=== PATIENT | male | born 1965 | race Caucasian/White ===

== ENCOUNTER 2016-09-21 21:19 | Inpatient (IN) | payer MEDICAID ==
[~2016-09-21] VITALS: Ht 172.7 cm; Wt 73.2 kg
[2016-09-21] MEDS ORDERED: SOD CHLORIDE 0.9% 1,000 ML IV STA (23:31)
[2016-09-22 00:33] LABS: ADD SCAN DIFF NO
[2016-09-22 00:40] LABS: ABNORMAL IP MESSAGE 1; EOSINOPHILS # 0.4 10^3/ul (0.0-0.5); HEMATOCRIT 29.3 % (42.0-52.0); HEMOGLOBIN 8.9 g/dl (14.0-18.0); MEAN CORPUSCULAR HEMOGLOBIN 25.6 pg (29.0-33.0); MEAN CORPUSCULAR HGB CONC 30.4 g/dl (32.0-37.0); MEAN CORPUSCULAR VOLUME 84.2 fl (82.0-101.0); MEAN PLATELET VOLUME 11.1 fl (7.4-10.4); RED BLOOD COUNT 3.48 10^6/ul (4.70-6.10); RED CELL DISTRIBUTION WIDTH 21.4 % (11.5-14.5); WHITE BLOOD COUNT 6.8 10^3/ul (4.8-10.8)
--- NOTE | 2016-09-22 01:14 | RADRPT ---
PROCEDURE: CHEST - 1 VIEW CLINICAL INDICATION: 51-year-old male with chest/abdominal pain. TECHNIQUE: A single frontal AP view of the chest was performed portably. The images were reviewed on a PACS workstation. COMPARISON: Chest x-ray February 18, 2014. FINDINGS: The cardiomediastinal silhouette has a normal appearance. There is no evidence for an infiltrate. There is no evidence for congestive heart failure. There is no evidence for pneumothorax. The osseou s structures are intact. IMPRESSION: No evidence for active cardiopulmonary disease. .Chip Hawkins MD, MD Date Time Electronically viewed and signed by .Chip Hawkins MD, on 09/22/2016 01:13 .Priyanka/
[2016-09-22 01:19] LABS: ALBUMIN 2.8 g/dl (3.3-4.9)
[2016-09-22 01:20] LABS: POTASSIUM 3.4 mmol/L (3.5-5.1)
[2016-09-22 01:22] LABS: ALBUMIN/GLOBULIN RATIO 0.73; BILIRUBIN,INDIRECT 0.8 mg/dl (0-1.1); BILIRUBIN,TOTAL 0.8 mg/dl (0.2-1.3); CREATININE 0.59 mg/dl (0.61-1.24); TOTAL PROTEIN 6.6 g/dl (6.1-8.1)
[2016-09-22 01:23] LABS: CALCIUM 7.6 mg/dl (8.4-10.2)
[2016-09-22 01:33] LABS: TROPONIN-I 0.015 ng/ml (0.00-0.12)
[2016-09-22] MEDS ORDERED: PANTOPRAZOLE 40 MG INJ IV STA (01:48)
[2016-09-22] MEDS ORDERED: OCTREOTIDE 50 MCG in SOD CHLORIDE 0.9% 25 ML IVPB STA (01:48)
[2016-09-22] MEDS ORDERED: LACTULOSE 30ML CUP PO ONE (02:00)
[2016-09-22 02:05] LABS: INR 1.25; PROTIME 15.8 Sec (12.2-14.2); PT RATIO 1.2
--- NOTE | 2016-09-22 02:51 | ERA ---
ER Documentation Chief Complaint Date/Time DATE: 09/22/16 TIME: 02:49 Chief Complaint rectal bleeding/feet pain. states been drinking etoh HPI 51-year-old man with history of alcoholism admits to recent drinking and complains of epigastric abdominal pain with recent bright blood per rectum. Patient denies diarrhea, no trauma, no melena, no fevers or chills, no chest pain or shortness of breath. ROS All systems reviewed and are negative except as per history of present illness. Medications Home Meds No Active Prescriptions or Reported Meds Allergies Allergies: Coded Allergies: No Known Allergy (Verified , 09/21/16) PMhx/Soc Alcoholism, alcoholic gastritis, hypertension, hypercholesterolemia History of Surgery: No Anesthesia Reaction: No Hx Neurological Disorder: No Hx Respiratory Disorders: No Hx Cardiac Disorders: Yes (HTN) Hx Psychiatric Problems: Yes (ETOH abuse) Hx Miscellaneous Medical Probl: No Hx Alcohol Use: Yes (02/17/2017) Hx Substance Use: Yes (hx, denies) Hx Tobacco Use: No Smoking Status: Unknown if ever smoked FmHx Family History: No diabetes Physical Exam Vitals Vital Signs Date Time Temp Pulse Resp B/P Pulse Ox O2 Delivery O2 Flow Rate FiO2 09/22/16 01:55 99 18 128/78 100 Room Air 09/22/16 00:56 93 13 122/69 100 Room Air 09/21/16 21:29 97.8 85 20 115/66 98 Physical Exam GENERAL: Well-developed, well-nourished, well-hydrated, in no apparent distress , appears intoxicated. Afebrile HEENT: Moist mucous membranes, pink conjunctiva, no cervical spine tenderness or step-off deformities, no goiter, no jaundice or icterus, extraocular movements intact without pain. No submandibular induration, and no pharyngeal erythema NEURO: Alert and oriented 3, cranial nerves II through XII intact bilaterally, pupils equal round reactive to light, no focal deficits or facial asymmetry, sensation intact distally Strength 5/5 in upper and lower extremities bilaterally CARDIAC: Tachycardic and regular, no murmurs rubs or gallops LUNGS: Clear bilaterally no wheezing crackles or stridor ABDOMEN: Soft nontender, no guarding, no rigidity, no rebound, no psoas sign no obturator sign. Normoactive bowel sounds SKIN: Warm and dry to touch, no abrasions, contusions, or hematomas, no lacerations, no ecchymosis, no target lesions, and without ulcers EXTREMITIES: No clubbing cyanosis or edema, calves are bilaterally symmetrical, no Homans sign, no popliteal cord sign. Distal pulses equal and bilateral PSYCH: Normal affect without agitation or irritability Result Diagram: 09/22/160 09/22/16 0020 Results 24 hrs Laboratory Tests Test 09/22/16 00:03 09/22/16 00:20 INR International Normalized Ratio 1.25 Prothrombin Time 15.8Sec Prothrombin Time Ratio 1.2 Alanine Aminotransferase (ALT/SGPT) 61IU/L Albumin 2.8g/dl Albumin/Globulin Ratio 0.73 Alkaline Phosphatase 160IU/L Ammonia 38umol/l Anion Gap 15 Aspartate Amino Transf (AST/SGOT) 124IU/L Basophils # 0.010^3/ul Basophils % 0.3% Blood Urea Nitrogen 9mg/dl Calcium Level 7.6mg/dl Carbon Dioxide Level 25mmol/L Chloride Level 109mmol/L Creatinine 0.59mg/dl Direct Bilirubin 0.00mg/dl Eosinophils # 0.410^3/ul Eosinophils % 5.6% Ethyl Alcohol Level 256.0mg/dl Globulin 3.80g/dl Glucose Level 93mg/dl Hematocrit 29.3% Hemoglobin 8.9g/dl Indirect Bilirubin 0.8mg/dl Lipase 448U/L Lymphocytes # 1.610^3/ul Lymphocytes % 23.4% Mean Corpuscular Hemoglobin 25.6pg Mean Corpuscular Hemoglobin Concent 30.4g/dl Mean Corpuscular Volume 84.2fl Mean Platelet Volume 11.1fl Monocytes # 0.710^3/ul Monocytes % 10.7% Neutrophils # 4.010^3/ul Neutrophils % 59.9% Nucleated Red Blood Cells # 0.010^3/ul Nucleated Red Blood Cells % 0.0/100WBC Platelet Count 8110^3/UL Potassium Level 3.4mmol/L Red Blood Count 3.4810^6/ul Red Cell Distribution Width 21.4% Sodium Level 146mmol/L Total Bilirubin 0.8mg/dl Total Protein 6.6g/dl Troponin I 0.015ng/ml White Blood Count 6.810^3/ul Current Medications Medications (Trade) Dose Ordered Sig/Rika Route PRN Reason Start Time Stop Time Status Last Admin Dose Admin Sodium Chloride (NS) 1,000 ml @ 1,000 mls/hr Q1H STAT IV 09/21/16 23:31 09/22/16 00:30 DC 09/21/16 23:31 Pantoprazole 40 mg 40 mg ONCE STAT IV 09/22/16 01:48 09/22/16 01:49 09/22/16 02:07 Octreotide Acetate/Sodium Chloride (Sandostatin/NS) 26 ml @ 100 mls/hr Q16M STAT IVPB 09/22/16 01:48 09/22/16 02:03 09/22/16 02:30 Lactulose (Enulose) 20 gm ONCE ONCE PO 09/22/16 02:00 09/22/16 02:01 09/22/16 02:14 Procedures/MDM IV line was established patient 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 I administered 1 L normal saline intravenously. EKG performed, read by me revealed a normal sinus rhythm at 93 bpm, left axis deviation, narrow QRS complex with a prolonged QT of 527 ms, no concerning ST elevations or depressions noted. CBC reveals anemia with a hematocrit of 29 thrombocytopenia 81,000, electrolytes abnormal with hypokalemia 3.4, liver function tests were unremarkable although her lipase was elevated at 448. Troponin was negative. Calcium was low at 7.6. Ammonia elevated at 38 I treated the patient on lactulose 20 g p.o., octreotide 50 g IV, and Protonix 40 mg IV 1. Patient also received calcium gluconate 1 g IV. I ordered type and screen. Patient will be admitted to the [facility] for continued medical management and possible transfusion. Alcohol level was elevated at 256 There are multiple etiologies to consider including upper and lower gastrointestinal bleeding. Hemorrhoidal bleeding is a concern as is a large gastric bleed. Either way alcoholism is most likely the underlying etiology. He will be admitted for continued medical management and possible GI consultation. Departure Diagnosis: Primary Impression: Alcoholic gastritis with bleeding Qualified Code: K29.21 - Acute alcoholic gastritis with hemorrhage Additional Impressions: Anemia Qualified Code: D64.9 - Anemia, unspecified type Hypokalemia Hypocalcemia Hyperammonemia Thrombocytopenia Condition: ABEBE Galvez MD Sep 22, 2016 02:51
[2016-09-22] MEDS ORDERED: CALCIUM GLUCONATE 10% 1 GM in SOD CHLORIDE 0.9% 100 ML IVPB ONE (03:00)
[2016-09-22 03:33] LABS: LYMPHOCYTES # 1.9 10^3/ul (0.8-2.9); MONOCYTE # 0.4 10^3/ul (0.3-0.9); NEUTROPHIL # 4.1 10^3/ul (1.6-7.5)
[2016-09-22 03:35] LABS: PLATELET COUNT 81 10^3/UL (140-415)
[2016-09-22 04:11] VITALS: BP 114/55; PULSE 86; RESP 18
[2016-09-22] MEDS: morphine 2 MG INJ IV PRN ×2 (04:15→08:16)
[2016-09-22] MEDS ORDERED: ONDANSETRON 4 MG INJ IV PRN ×2 (04:30→06:00)
[2016-09-22] MEDS ORDERED: DEXTROSE 5%-0.45% NACL 1,000 ML IV SCH (04:30)
[2016-09-22 04:45] VITALS: Ht 172.7 cm; Wt 73.2 kg
[2016-09-22] MEDS ORDERED: D5W-0.45 NACL + KCL 20 MEQ 1,000 ML IV SCH (05:54)
[2016-09-22 05:56] LABS: BASOPHILS % 0.6 % (0.0-2.0); EOSINOPHILS # 0.3 10^3/ul (0.0-0.5); EOSINOPHILS % 6.6 % (0.0-7.0); HEMATOCRIT 26.9 % (42.0-52.0); HEMOGLOBIN 8.3 g/dl (14.0-18.0); LYMPHOCYTES # 1.2 10^3/ul (0.8-2.9); MEAN CORPUSCULAR HEMOGLOBIN 25.8 pg (29.0-33.0); MEAN CORPUSCULAR HGB CONC 30.9 g/dl (32.0-37.0); MEAN CORPUSCULAR VOLUME 83.5 fl (82.0-101.0); MEAN PLATELET VOLUME 10.7 fl (7.4-10.4); MONOCYTE # 0.6 10^3/ul (0.3-0.9); MONOCYTES % 11.9 % (0.0-11.0); NEUTROPHIL # 2.9 10^3/ul (1.6-7.5); NEUTROPHILS % 56.7 % (39.0-77.0); PLATELET COUNT 72 10^3/UL (140-415); RED BLOOD COUNT 3.22 10^6/ul (4.70-6.10); RED CELL DISTRIBUTION WIDTH 21.4 % (11.5-14.5); WHITE BLOOD COUNT 5.1 10^3/ul (4.8-10.8)
[2016-09-22] MEDS ORDERED: POTASSIUM CHLORIDE 20 MEQ in SOD CHLORIDE 0.9% 100 ML IVPB ONE (06:00)
[2016-09-22] MEDS ORDERED: NACL 0.9% 3 ML SYG IV SCH (06:00)
[2016-09-22] MEDS ORDERED: PANTOPRAZOLE 40 MG INJ IV SCH (06:00)
[2016-09-22 06:05] LABS: POTASSIUM 3.5 mmol/L (3.5-5.1)
[2016-09-22 06:08] LABS: CREATININE 0.49 mg/dl (0.61-1.24)
[2016-09-22 06:09] LABS: CALCIUM 7.5 mg/dl (8.4-10.2); MAGNESIUM 1.6 mg/dl (1.7-2.5)
[2016-09-22] MEDS ORDERED: LORAZEPAM 2 MG INJ IV PRN (06:30)
[2016-09-22 08:05] VITALS: BP 120/56; RESP 22
[2016-09-22] MEDS ORDERED: MULTIVITAMINS 10 ML, THIAMINE 100 MG, FOLIC ACID 1 MG in SOD CHLORIDE 0.9% 1,000 ML IVPB SCH (09:00)
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
== END 2016-09-22 09:45 | disposition left against medical advice (07) | DRG 378 ==
LOC: E/R 21:19 → MS1 09-22 02:30 → E/R 09-22 03:13 → MS1 09-22 03:13 → UNDODISIN 09-22 09:45
PROVIDERS: ADMIT Internal Medicine; ATTEND Internal Medicine
DX: K29.21 Alcoholic gastritis with bleeding (principal); E72.20 Disorder of urea cycle metabolism, unspecified; D69.6 Thrombocytopenia, unspecified; E83.51 Hypocalcemia; K86.0 Alcohol-induced chronic pancreatitis; D64.9 Anemia, unspecified; E87.6 Hypokalemia
CPT/HCPCS: 36415; 71010; 80048; 80053; 80306; 82140; 83690; 83735; 84100; 84484; 85025; 85610; 86850; 86900; 86901; 93005; 96361; 96365; 96375; C9113; J0610; J2270; J3411; J3480; J7030; J7042

== ENCOUNTER 2016-10-01 08:40 | Inpatient (IN) | payer MEDICAID ==
[~2016-10-01] VITALS: Ht 175.3 cm; Wt 77.0 kg
[2016-10-01] MEDS ORDERED: MAGNESIUM SULFATE 2 GM, MULTIVITAMINS 10 ML, THIAMINE 100 MG, FOLIC ACID 1 MG in SOD CH... IV STA (09:02)
[2016-10-01] MEDS ORDERED: SOD CHLORIDE 0.9% 1,000 ML IV STA (09:05)
[2016-10-01 09:58] LABS: BASOPHILS % 0.4 % (0.0-2.0); EOSINOPHILS # 0.2 10^3/ul (0.0-0.5); EOSINOPHILS % 4.2 % (0.0-7.0); HEMATOCRIT 22.6 % (42.0-52.0); HEMOGLOBIN 7.4 g/dl (14.0-18.0); LYMPHOCYTES # 1.4 10^3/ul (0.8-2.9); LYMPHOCYTES % 31.6 % (15.0-51.0); MEAN CORPUSCULAR HEMOGLOBIN 26.3 pg (29.0-33.0); MEAN CORPUSCULAR HGB CONC 32.8 g/dl (32.0-37.0); MEAN CORPUSCULAR VOLUME 80.1 fl (82.0-101.0); MONOCYTE # 0.7 10^3/ul (0.3-0.9); NEUTROPHIL # 2.2 10^3/ul (1.6-7.5); NEUTROPHILS % 48.8 % (39.0-77.0); PLATELET COUNT 64 10^3/UL (140-440); RED BLOOD COUNT 2.82 10^6/ul (4.70-6.10); RED CELL DISTRIBUTION WIDTH 23.6 % (11.5-14.5); UNCORRECTED WBC 4.5 10^3/ul (4.8-10.8); WHITE BLOOD COUNT 4.5 10^3/ul (4.8-10.8)
[2016-10-01 10:01] LABS: CONDITION 1; LH ANALYZER COMMENTS 1; SUSPECT 1
--- NOTE | 2016-10-01 10:01 | RADRPT ---
PROCEDURE: CT Brain without contrast. CLINICAL INDICATION: Medical clearance. TECHNIQUE: A CT of the brain was performed on a [address] scanner utilizing axial sections from the skull base through the vertex without contrast. Coronal and sagittal reformatted i mages were obtained from the axial source images. Images were reviewed on a high-resolution PACS wor kstation. Exam CTDI = 44.11 mGy and the DLP equals 720.23 mGy-cm. One or the following dose reduction techniques were used: -Automated exposure control. -Adjustment of the mA and/or KV according to patient's size. -Use of iterative reconstruction technique. COMPARISON: CT of the brain from 02/20/2013. FINDINGS: There is mild prominence of the lateral ventricles and cerebral sulci, consistent with diffuse cereb ral atrophy. There is no intracranial hemorrhage, midline shift, or mass effect. No abnormal extra-a xial fluid collections are identified. There is hypoattenuation of the periventricular white matter. The duggan-white differentiation is well preserved. The basal cisterns are patent. The posterior idalia a is unremarkable. Vascular calcifications are noted within the intracranial portions of the vertebr al and internal carotid arteries. The visualized portions of the orbits are unremarkable. There is mild left supraorbital soft tissue swelling The paranasal sinuses and mastoid air cells are clear. No calvarial fracture or abnormality are identified. The soft tissues are unremarkable. IMPRESSION: 1. No acute intracranial abnormality. 2. Age related senescent changes with mild diffuse cerebral atrophy. 3. Patchy periventricular hypoattenuation, nonspecific finding, most commonly associated with microv ascular ischemic changes. 4. Intracranial atherosclerosis. 5. Mild left supraorbital soft tissue swelling. RPTAT:AACC Physician Toya Date Time Electronically viewed and signed by Physician Toya on 10/01/2016 10:01 KARL/
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
[2016-10-01 10:20] LABS: INR 1.47; PROTIME 17.9 Sec (12.2-14.2); PT RATIO 1.4
[2016-10-01 10:21] LABS: PARTIAL THROMBOPLASTIN TIME 35.4 Sec (25.0-35.0)
[2016-10-01 10:27] LABS: ALBUMIN 2.5 g/dl (3.3-4.9)
[2016-10-01 10:28] LABS: POTASSIUM 3.5 mmol/L (3.5-5.1)
[2016-10-01 10:30] LABS: BILIRUBIN,INDIRECT 0.8 mg/dl (0-1.1); BILIRUBIN,TOTAL 0.8 mg/dl (0.2-1.3); CREATININE 0.46 mg/dl (0.61-1.24)
[2016-10-01 10:31] LABS: ALBUMIN/GLOBULIN RATIO 0.71; CALCIUM 7.4 mg/dl (8.4-10.2)
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
[2016-10-01] MEDS ORDERED: FAMOTIDINE 20 MG INJ IV STA (11:38)
[2016-10-01] MEDS ORDERED: PANTOPRAZOLE IV 80 MG in SOD CHLORIDE 0.9% 100 ML IVPB STA (11:38)
[2016-10-01] MEDS ORDERED: ONDANSETRON 4 MG INJ IV PRN ×2 (13:00→13:30)
[2016-10-01] MEDS ORDERED: ACETAMINOPHEN 325 MG TAB PO PRN ×2 (13:00→13:30)
[2016-10-01] MEDS ORDERED: MAGNESIUM HYDROXIDE 30ML CUP PO PRN (13:30)
[2016-10-01] MEDS ORDERED: HYDROCODONE/APAP (5/325) TAB PO PRN (13:30)
[2016-10-01] MEDS ORDERED: BISACODYL (EC) 5 MG TAB PO PRN (13:30)
[2016-10-01] MEDS ORDERED: NACL 0.9% 3 ML SYG IV SCH (13:30)
[2016-10-01] MEDS ORDERED: MAGNESIUM SULFATE 2 GM, MULTIVITAMINS 10 ML, THIAMINE 100 MG, FOLIC ACID 1 MG in SOD CH... IV SCH (13:30)
[2016-10-01] MEDS ORDERED: LORAZEPAM 2 MG INJ IV PRN (14:00)
[2016-10-01 14:33] VITALS: TEMP 98.2
[2016-10-01 14:34] LABS: IRON 22 ug/dl (35-150)
[2016-10-01 14:44] LABS: TOTAL IRON BINDING CAPACITY 268 ug/dl (241-421)
[2016-10-01 15:44] VITALS: BP 115/58; PULSE 100; RESP 16
[2016-10-01] MEDS ORDERED: IBUP400T22 PO (16:29)
[2016-10-01] MEDS ORDERED: LORA-444 PO (16:29)
[2016-10-01 16:39] LABS: AMYLASE 129 U/L (11-123)
[2016-10-01] MEDS: SOD FERRIC GLUC COMPLX 125 MG in SOD CHLORIDE 0.9% 100 ML IVPB SCH (17:32)
[2016-10-01] MEDS: PANTOPRAZOLE 40 MG INJ IV SCH (17:32)
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
[2016-10-01] MEDS: morphine 2 MG INJ IV PRN (20:04)
[2016-10-01] MEDS: CHLORDIAZEPOXIDE 25 MG CAP PO SCH (20:05)
[2016-10-01 20:24] VITALS: BP 125/60; RESP 19
[2016-10-02 02:01] LABS: BARBITURATES Negative (NEGATIVE); BENZODIAZEPINES Positive (NEGATIVE)
[2016-10-02 02:02] LABS: COCAINE Negative (NEGATIVE); OPIATES Positive (NEGATIVE)
[2016-10-02 02:07] LABS: CANNABINOIDS Negative (NEGATIVE)
[2016-10-02] MEDS: morphine 2 MG INJ IV PRN ×3 (02:33→18:54)
[2016-10-02] MEDS: PANTOPRAZOLE 40 MG INJ IV SCH ×2 (05:21→17:22)
[2016-10-02 05:43] LABS: ALBUMIN 2.2 g/dl (3.3-4.9)
[2016-10-02 05:44] LABS: POTASSIUM 3.4 mmol/L (3.5-5.1)
[2016-10-02 05:46] LABS: ALBUMIN/GLOBULIN RATIO 0.66; BILIRUBIN,INDIRECT 1.2 mg/dl (0-1.1); BILIRUBIN,TOTAL 1.2 mg/dl (0.2-1.3); CALCIUM 7.3 mg/dl (8.4-10.2); CREATININE 0.49 mg/dl (0.61-1.24); TOTAL PROTEIN 5.5 g/dl (6.1-8.1)
[2016-10-02 05:47] LABS: INR 1.49; PROTIME 18.1 Sec (12.2-14.2); PT RATIO 1.4
[2016-10-02] MEDS ORDERED: PANTOPRAZOLE 40 MG INJ IV SCH (06:00)
[2016-10-02 06:01] LABS: BASOPHILS % 0.5 % (0.0-2.0); EOSINOPHILS # 0.2 10^3/ul (0.0-0.5); EOSINOPHILS % 5.9 % (0.0-7.0); HEMOGLOBIN 7.7 g/dl (14.0-18.0); LYMPHOCYTES % 25.3 % (15.0-51.0); MEAN CORPUSCULAR HGB CONC 33.4 g/dl (32.0-37.0); MEAN CORPUSCULAR VOLUME 80.8 fl (82.0-101.0); MEAN PLATELET VOLUME 9.3 fl (7.4-10.4); MONOCYTE # 0.8 10^3/ul (0.3-0.9); MONOCYTES % 18.4 % (0.0-11.0); NEUTROPHIL # 2.1 10^3/ul (1.6-7.5); NEUTROPHILS % 49.9 % (39.0-77.0); PLATELET COUNT 54 10^3/UL (140-440); RED BLOOD COUNT 2.85 10^6/ul (4.70-6.10); RED CELL DISTRIBUTION WIDTH 22.8 % (11.5-14.5); UNCORRECTED WBC 4.1 10^3/ul (4.8-10.8); WHITE BLOOD COUNT 4.1 10^3/ul (4.8-10.8)
[2016-10-02 06:11] LABS: CONDITION 1; LH ANALYZER COMMENTS 1
[2016-10-02 07:52] VITALS: BP 123/68; RESP 18
[2016-10-02] MEDS: CHLORDIAZEPOXIDE 25 MG CAP PO SCH ×3 (08:31→20:57)
[2016-10-02 09:48] LABS: CHOL/HDL RATIO 3.1 RATIO; MAGNESIUM 1.6 mg/dl (1.7-2.5); PHOSPHORUS 3.5 mg/dl (2.5-4.9)
[2016-10-02] MEDS: MULTIVITAMINS 10 ML, THIAMINE 100 MG, FOLIC ACID 1 MG in SOD CHLORIDE 0.9% 1,000 ML IVPB SCH (10:00)
[2016-10-02] MEDS: CHOLECALCIFEROL 1,000 UNIT TAB PO SCH (10:00)
[2016-10-02 10:45] LABS: THYROID STIMULATING HORMONE 5.11 MIU/L (0.465-4.680)
[2016-10-02] MEDS ORDERED: POTASSIUM CHLORIDE (SR) 10 MEQ TAB PO ONE (12:00)
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
[2016-10-02] MEDS ORDERED: MAGNESIUM SULFATE 2 GM/50 ML 50 ML IVPB ONE (16:30)
[2016-10-02] MEDS ORDERED: BISACODYL (EC) 5 MG TAB PO ONE (19:00)
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
[2016-10-02] MEDS ORDERED: MAGNESIUM CITRATE 300 ML BTL PO ONE (20:00)
[2016-10-02] MEDS: SOD FERRIC GLUC COMPLX 125 MG in SOD CHLORIDE 0.9% 100 ML IVPB SCH (20:01)
[2016-10-02 20:22] VITALS: BP 138/72; RESP 19
[2016-10-02] MEDS ORDERED: POLYETHYLENE GLYCOL 3350 119 GM POWDER PO ONE (21:00)
[2016-10-02] MEDS: LACTULOSE 30ML CUP PO SCH (21:06)
[2016-10-03] MEDS: LACTULOSE 30ML CUP PO SCH (05:03)
[2016-10-03] MEDS: PANTOPRAZOLE 40 MG INJ IV SCH (05:04)
[2016-10-03 05:29] LABS: INR 1.57; PROTIME 18.9 Sec (12.2-14.2); PT RATIO 1.5
[2016-10-03 05:32] LABS: EOSINOPHILS # 0.2 10^3/ul (0.0-0.5); EOSINOPHILS % 4.9 % (0.0-7.0); HEMATOCRIT 27.6 % (42.0-52.0); HEMOGLOBIN 9.2 g/dl (14.0-18.0); LYMPHOCYTES # 1.2 10^3/ul (0.8-2.9); LYMPHOCYTES % 27.1 % (15.0-51.0); MEAN CORPUSCULAR HEMOGLOBIN 27.5 pg (29.0-33.0); MEAN CORPUSCULAR HGB CONC 33.2 g/dl (32.0-37.0); MEAN CORPUSCULAR VOLUME 82.9 fl (82.0-101.0); MEAN PLATELET VOLUME 9.6 fl (7.4-10.4); MONOCYTE # 0.8 10^3/ul (0.3-0.9); MONOCYTES % 16.4 % (0.0-11.0); NEUTROPHIL # 2.4 10^3/ul (1.6-7.5); NEUTROPHILS % 51.6 % (39.0-77.0); PLATELET COUNT 57 10^3/UL (140-440); RED BLOOD COUNT 3.33 10^6/ul (4.70-6.10); RED CELL DISTRIBUTION WIDTH 22.1 % (11.5-14.5); UNCORRECTED WBC 4.6 10^3/ul (4.8-10.8); WHITE BLOOD COUNT 4.6 10^3/ul (4.8-10.8)
[2016-10-03 05:40] LABS: CONDITION 1; LH ANALYZER COMMENTS 1
[2016-10-03] MEDS: morphine 2 MG INJ IV PRN ×2 (05:40→11:19)
[2016-10-03 05:45] LABS: ALBUMIN 2.4 g/dl (3.3-4.9)
[2016-10-03 05:46] LABS: POTASSIUM 3.9 mmol/L (3.5-5.1)
[2016-10-03 05:48] LABS: CREATININE 0.48 mg/dl (0.61-1.24)
[2016-10-03 05:49] LABS: ALBUMIN/GLOBULIN RATIO 0.7; TOTAL PROTEIN 5.8 g/dl (6.1-8.1)
[2016-10-03 05:50] LABS: MAGNESIUM 1.8 mg/dl (1.7-2.5); PHOSPHORUS 3.8 mg/dl (2.5-4.9)
[2016-10-03] MEDS ORDERED: BISACODYL (EC) 5 MG TAB PO ONE (06:00)
[2016-10-03] MEDS ORDERED: POLYETHYLENE GLYCOL 3350 119 GM POWDER PO ONE (06:00)
[2016-10-03 08:00] VITALS: BP 119/67; RESP 20
[2016-10-03] MEDS: CHOLECALCIFEROL 1,000 UNIT TAB PO SCH (09:00)
[2016-10-03] MEDS: MULTIVITAMINS 10 ML, THIAMINE 100 MG, FOLIC ACID 1 MG in SOD CHLORIDE 0.9% 1,000 ML IVPB SCH (09:27)
[2016-10-03] MEDS: CHLORDIAZEPOXIDE 25 MG CAP PO SCH (09:29)
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
== END 2016-10-03 13:30 | disposition left against medical advice (07) | DRG 378 ==
LOC: E/R 08:40 → PP2 12:38
PROVIDERS: ADMIT Family Medicine; ATTEND Family Medicine
PROC: 30233N1 Transfusion of Nonautologous Red Blood Cells into Peripheral Vein, Percutaneous Approach (ICD-10-PCS; principal; 2016-10-01)
DX: K92.1 Melena (principal); D61.818 Other pancytopenia; S09.8XXA Other specified injuries of head, initial encounter; E72.20 Disorder of urea cycle metabolism, unspecified; E55.9 Vitamin D deficiency, unspecified; D50.9 Iron deficiency anemia, unspecified; F10.129 Alcohol abuse with intoxication, unspecified; R74.0 Nonspecific elevation of levels of transaminase and lactic acid dehydrogenase [LDH]; Y90.8 Blood alcohol level of 240 mg/100 ml or more; Y00.XXXA Assault by blunt object, initial encounter
CPT/HCPCS: 36430; 70450; 70486; 80053; 80061; 80306; 80307; 82140; 82150; 82270; 82652; 82728; 83036; 83540; 83690; 83735; 84100; 84439; 84443; 85025; 85610; 85730; 86850; 86900; 86901; 86920; 87081; 96374; 96375; 97162; C9113; J2060; J2270; J2916; J3411; J3475; J7030; P9016

== ENCOUNTER 2016-10-05 10:25 | Inpatient (IN) | payer MEDICAID ==
[~2016-10-05] VITALS: Ht 175.3 cm; Wt 90.0 kg
[~2016-10-05 10:25] MED LIST: IBUP400T22 PO; LORA-444 PO
[2016-10-05] MEDS ORDERED: MAGNESIUM SULFATE 2 GM, MULTIVITAMINS 10 ML, THIAMINE 100 MG, FOLIC ACID 1 MG in SOD CH... IV STA (10:38)
--- NOTE | 2016-10-05 11:10 | RADRPT ---
PROCEDURE: XR Chest. CLINICAL INDICATION: shortness of breath TECHNIQUE: Single portable view of the chest was obtained COMPARISON: 09/21/16 FINDINGS: There is mild cardiomegaly. There is mild pulmonary vascular congestion. There are mild bilateral perihilar and lower lobe infi ltrates. There is no evidence of pleural effusion.. There is no pneumothorax. The bones and soft tissues are unremarkable. RPTAT: AA IMPRESSION: Mild cardiomegaly with mild pulmonary vascular congestion. .Sumeet Douglas MD, MD Date Time Electronically viewed and signed by .Sumeet Douglas MD, MD on 10/05/2016 11:09 .S/
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
[2016-10-05 11:55] LABS: ADD SCAN DIFF NO
[2016-10-05 12:09] LABS: ABNORMAL IP MESSAGE 1; ALBUMIN 2.6 g/dl (3.3-4.9); BASOPHILS % 0.3 % (0.0-2.0); EOSINOPHILS # 0.2 10^3/ul (0.0-0.5); EOSINOPHILS % 3.2 % (0.0-7.0); HEMATOCRIT 28.2 % (42.0-52.0); HEMOGLOBIN 8.8 g/dl (14.0-18.0); LYMPHOCYTES # 0.9 10^3/ul (0.8-2.9); LYMPHOCYTES % 14.5 % (15.0-51.0); MEAN CORPUSCULAR HGB CONC 31.2 g/dl (32.0-37.0); MEAN CORPUSCULAR VOLUME 86.5 fl (82.0-101.0); MEAN PLATELET VOLUME 10.9 fl (7.4-10.4); MONOCYTE # 0.6 10^3/ul (0.3-0.9); MONOCYTES % 10.6 % (0.0-11.0); NEUTROPHIL # 4.3 10^3/ul (1.6-7.5); NEUTROPHILS % 70.9 % (39.0-77.0); RED BLOOD COUNT 3.26 10^6/ul (4.70-6.10); RED CELL DISTRIBUTION WIDTH 22.5 % (11.5-14.5)
[2016-10-05 12:10] LABS: POTASSIUM 3.7 mmol/L (3.5-5.1)
[2016-10-05 12:12] LABS: BILIRUBIN,INDIRECT 1.7 mg/dl (0-1.1); BILIRUBIN,TOTAL 1.7 mg/dl (0.2-1.3); CREATININE 0.5 mg/dl (0.61-1.24)
[2016-10-05 12:13] LABS: ALBUMIN/GLOBULIN RATIO 0.7; CALCIUM 7.7 mg/dl (8.4-10.2); TOTAL PROTEIN 6.3 g/dl (6.1-8.1)
[2016-10-05 12:18] LABS: PLATELET COUNT 69 10^3/UL (140-415)
[2016-10-05] MEDS ORDERED: IPRATROPIUM (NEB) 0.5 MG/2.5 ML AMP NEB STA (13:27)
[2016-10-05] MEDS ORDERED: ALBUTEROL 0.5% (NEB) 2.5 MG/0.5 ML AMP NEB STA (13:27)
[2016-10-05] MEDS ORDERED: LORAZEPAM 2 MG INJ IV ONE (13:30)
[2016-10-05] MEDS ORDERED: CHLORDIAZEPOXIDE 25 MG CAP PO ONE (13:30)
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
[2016-10-05] MEDS ORDERED: ONDANSETRON 4 MG INJ IV PRN ×2 (15:30→16:30)
[2016-10-05] MEDS ORDERED: ACETAMINOPHEN 325 MG TAB PO PRN (15:30)
[2016-10-05 15:31] LABS: TROPONIN-I 0.013 ng/ml (0.00-0.12)
[2016-10-05] MEDS ORDERED: SOD CHLORIDE 0.9% 1,000 ML IV STA (15:42)
[2016-10-05] MEDS ORDERED: FUROSEMIDE 40 MG INJ IV ONE (16:00)
[2016-10-05] MEDS ORDERED: NACL 0.9% 3 ML SYG IV SCH (16:30)
[2016-10-05 17:00] VITALS: TEMP 98.3
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
[2016-10-05] MEDS: PANTOPRAZOLE 40 MG INJ IV SCH (18:03)
[2016-10-05 18:11] VITALS: BP 144/62; PULSE 105; RESP 19
[2016-10-05 19:20] VITALS: BP 135/67; RESP 20
[2016-10-05] MEDS: CHLORDIAZEPOXIDE 25 MG CAP PO SCH (19:37)
[2016-10-05] MEDS: morphine 2 MG INJ IV PRN (19:44)
[2016-10-05] MEDS: LORAZEPAM 2 MG INJ IV PRN (19:44)
[2016-10-05 19:57] VITALS: Ht 175.3 cm; Wt 90.0 kg
[2016-10-05 20:23] VITALS: PULSE 103
[2016-10-05 21:00] LABS: CK-MB 7.94 ng/ml (0.0-2.4)
[2016-10-05] MEDS ORDERED: FAMOTIDINE 20 MG TAB PO SCH (21:00)
[2016-10-05 21:01] LABS: TROPONIN-I 0.014 ng/ml (0.00-0.12)
[2016-10-06] VITALS (13 sets, daily range): BP systolic 122–141; BP diastolic 63–67; PULSE 83–105; RESP 16–21
[2016-10-06 00:14] LABS: TROPONIN-I 0.021 ng/ml (0.00-0.12)
[2016-10-06 00:27] LABS: CK-MB 5.64 ng/ml (0.0-2.4)
[2016-10-06] MEDS: LORAZEPAM 2 MG INJ IV PRN ×3 (04:30→21:47)
[2016-10-06] MEDS: PANTOPRAZOLE 40 MG INJ IV SCH ×2 (04:30→17:59)
[2016-10-06] MEDS: morphine 2 MG INJ IV PRN ×2 (04:53→18:48)
[2016-10-06] MEDS: FAMOTIDINE 20 MG TAB PO SCH (08:13)
[2016-10-06] MEDS: MULTIVITAMINS 10 ML, THIAMINE 100 MG, FOLIC ACID 1 MG in SOD CHLORIDE 0.9% 1,000 ML IVPB SCH (08:13)
[2016-10-06] MEDS: CHLORDIAZEPOXIDE 25 MG CAP PO SCH ×3 (08:13→19:35)
[2016-10-06 10:24] LABS: ADD SCAN DIFF NO
[2016-10-06 10:32] LABS: ABNORMAL IP MESSAGE 1; BASOPHILS % 0.6 % (0.0-2.0); EOSINOPHILS # 0.4 10^3/ul (0.0-0.5); EOSINOPHILS % 7.7 % (0.0-7.0); HEMATOCRIT 27.2 % (42.0-52.0); HEMOGLOBIN 8.5 g/dl (14.0-18.0); LYMPHOCYTES # 0.7 10^3/ul (0.8-2.9); LYMPHOCYTES % 14.7 % (15.0-51.0); MEAN CORPUSCULAR HEMOGLOBIN 27.5 pg (29.0-33.0); MEAN CORPUSCULAR HGB CONC 31.3 g/dl (32.0-37.0); MEAN PLATELET VOLUME 10.4 fl (7.4-10.4); MONOCYTE # 0.6 10^3/ul (0.3-0.9); MONOCYTES % 12.8 % (0.0-11.0); NEUTROPHIL # 3.1 10^3/ul (1.6-7.5); NEUTROPHILS % 63.8 % (39.0-77.0); PLATELET COUNT 59 10^3/UL (140-415); RED BLOOD COUNT 3.09 10^6/ul (4.70-6.10); RED CELL DISTRIBUTION WIDTH 23.7 % (11.5-14.5); WHITE BLOOD COUNT 4.9 10^3/ul (4.8-10.8)
[2016-10-06 10:38] LABS: POTASSIUM 3.5 mmol/L (3.5-5.1)
[2016-10-06 10:40] LABS: ALBUMIN/GLOBULIN RATIO 0.64; BILIRUBIN,INDIRECT 1.7 mg/dl (0-1.1); BILIRUBIN,TOTAL 1.7 mg/dl (0.2-1.3); CREATININE 0.48 mg/dl (0.61-1.24); TOTAL PROTEIN 5.1 g/dl (6.1-8.1)
[2016-10-06 10:41] LABS: CALCIUM 7.3 mg/dl (8.4-10.2); MAGNESIUM 1.5 mg/dl (1.7-2.5)
[2016-10-06 10:43] LABS: CREATINE KINASE 691 IU/L (23-200)
[2016-10-06 10:51] LABS: CK-MB 3.73 ng/ml (0.0-2.4)
[2016-10-06 10:52] LABS: TROPONIN-I < 0.010 ng/ml (0.00-0.12)
--- NOTE | 2016-10-06 13:12 | PDOCDIS ---
Discharge Instructions CONDITION Patient Condition: Fair HOME CARE INSTRUCTIONS: Diet Instructions: Regular ACTIVITY: Activity Restrictions: Slowly Increase Activity Rest between Activity Avoid heavy lifting FOLLOW UP/APPOINTMENTS Appointments Follow up with primary care physician as outpatient OTHER ORDERS: Other Orders: Alcohol cessation CARL PIERRE MD Oct 06, 2016 13:12
[2016-10-06] MEDS ORDERED: MULTI PO (13:16)
[2016-10-06] MEDS ORDERED: CHLO25CA9 PO (13:16)
[2016-10-06] MEDS ORDERED: FOL8 PO (13:16)
[2016-10-06] MEDS ORDERED: LORA1TAB PO (13:16)
[2016-10-06] MEDS ORDERED: THIA100T10 PO (13:16)
[2016-10-06] MEDS ORDERED: OMEP20CA16 PO (13:16)
[2016-10-06] MEDS ORDERED: FER325 PO (13:35)
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
[2016-10-07] VITALS (9 sets, daily range): BP systolic 124–147; BP diastolic 64–72; PULSE 80–88; RESP 16–20
[2016-10-07] MEDS: morphine 2 MG INJ IV PRN (04:04)
[2016-10-07] MEDS: LORAZEPAM 2 MG INJ IV PRN ×2 (04:04→14:34)
[2016-10-07] MEDS: PANTOPRAZOLE 40 MG INJ IV SCH ×2 (04:11→18:15)
[2016-10-07] MEDS: CHLORDIAZEPOXIDE 25 MG CAP PO SCH ×3 (08:13→20:58)
[2016-10-07] MEDS: FAMOTIDINE 20 MG TAB PO SCH (08:13)
[2016-10-07] MEDS: MULTIVITAMINS 10 ML, THIAMINE 100 MG, FOLIC ACID 1 MG in SOD CHLORIDE 0.9% 1,000 ML IVPB SCH (08:13)
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
[2016-10-07] MEDS ORDERED: LACTULOSE 30ML CUP PO ONE (12:00)
[2016-10-07] MEDS: FERROUS SULFATE (EC) 325 MG TAB PO SCH (12:53)
[2016-10-07] MEDS: LACTULOSE 30ML CUP PO SCH (20:58)
[2016-10-08] MEDS: PANTOPRAZOLE 40 MG INJ IV SCH (05:53)
[2016-10-08 05:59] LABS: ADD SCAN DIFF NO
[2016-10-08 06:14] LABS: ABNORMAL IP MESSAGE 1; BASOPHILS % 0.7 % (0.0-2.0); EOSINOPHILS # 0.3 10^3/ul (0.0-0.5); EOSINOPHILS % 7.4 % (0.0-7.0); HEMOGLOBIN 9.4 g/dl (14.0-18.0); LYMPHOCYTES % 21.6 % (15.0-51.0); MEAN CORPUSCULAR HEMOGLOBIN 26.6 pg (29.0-33.0); MEAN CORPUSCULAR HGB CONC 30.3 g/dl (32.0-37.0); MEAN CORPUSCULAR VOLUME 87.6 fl (82.0-101.0); MONOCYTE # 0.6 10^3/ul (0.3-0.9); MONOCYTES % 13.7 % (0.0-11.0); NEUTROPHIL # 2.6 10^3/ul (1.6-7.5); NEUTROPHILS % 56.4 % (39.0-77.0); PLATELET COUNT 62 10^3/UL (140-415); RED BLOOD COUNT 3.54 10^6/ul (4.70-6.10); RED CELL DISTRIBUTION WIDTH 24.5 % (11.5-14.5); WHITE BLOOD COUNT 4.6 10^3/ul (4.8-10.8)
[2016-10-08 06:20] LABS: ALBUMIN 2.3 g/dl (3.3-4.9)
[2016-10-08 06:21] LABS: POTASSIUM 3.6 mmol/L (3.5-5.1)
[2016-10-08 06:22] LABS: CREATININE 0.49 mg/dl (0.61-1.24)
[2016-10-08 06:23] LABS: ALBUMIN/GLOBULIN RATIO 0.65; BILIRUBIN,INDIRECT 1.7 mg/dl (0-1.1); BILIRUBIN,TOTAL 1.7 mg/dl (0.2-1.3); CALCIUM 8.1 mg/dl (8.4-10.2); TOTAL PROTEIN 5.8 g/dl (6.1-8.1)
[2016-10-08 06:24] LABS: MAGNESIUM 1.4 mg/dl (1.7-2.5)
[2016-10-08 08:19] VITALS: BP 114/63; RESP 18
[2016-10-08] MEDS: CHLORDIAZEPOXIDE 25 MG CAP PO SCH ×3 (09:07→20:43)
[2016-10-08] MEDS: FAMOTIDINE 20 MG TAB PO SCH (09:07)
[2016-10-08] MEDS: FERROUS SULFATE (EC) 325 MG TAB PO SCH (09:07)
[2016-10-08] MEDS: LACTULOSE 30ML CUP PO SCH ×3 (09:08→20:43)
[2016-10-08] MEDS: ASCORBIC ACID 500 MG TAB PO SCH (09:10)
[2016-10-08] MEDS: MULTIVITAMINS 10 ML, THIAMINE 100 MG, FOLIC ACID 1 MG in SOD CHLORIDE 0.9% 1,000 ML IVPB SCH (09:12)
[2016-10-08] MEDS: ACETAMINOPHEN 325 MG TAB PO PRN (11:20)
[2016-10-08] MEDS ORDERED: LACT20SO2 PO (12:57)
--- NOTE | 2016-10-08 13:05 | DS ---
Date/Time of Note Date/Time of Note DATE: 10/08/16 TIME: 13:02 Discharge Summary Admission/Discharge Info Admit Date/Time Oct 07, 2016 at 16:24 Discharge Date/Time 10/08/16 Final Diagnosis DISCHARGE DIAGNOSES: 1. Rhabdomyolysis. Resolved, status post IV fluid. 2. Recent hospitalization with gastrointestinal bleed. Resolved. Hemoglobin and hematocrit have been stable. 3. History and current alcohol dependency. Patient was placed on a banana bag , Librium, and Ativan. He will be discharged home on multivitamins, thiamine, folic acid, Librium and Ativan 4. Transaminitis secondary to alcohol dependency. 5. Thrombocytopenia. No evidence of bleeding. Secondary to alcohol dependency. 6. Noncompliance with medical management. 7. Anemia. Stable. 8. Hepatic encephalopathy. Continue lactulose Hospital Course Is addendum for discharge summary which was done by me on 10/06/2016. Patient was not able to find placement and was also found to be mildly altered with elevated ammonia level. He was started on lactulose and this time his mentation is at his baseline. He is awake alert able to follow commands he was able to shower without any difficulty ambulating with no discomfort or gait disturbance. At this time patient will be discharged to long term versus his family house I have spoken to him regarding the importance of abstinence from alcohol intake Follow-up with primary care physician as outpatient Alcohol cessation Home Meds Active Scripts Lactulose* (Lactulose*) 20 Gm/30 Ml Solution, 20 GM PO TID for 30 Days, ML Prov:CARL PIERRE MD 10/08/16 Ferrous Sulfate* (Ferrous Sulfate*) 325 Mg Tabec, 325 MG PO BID, #60 TAB Prov:CARL PIERRE MD 10/06/16 Thiamine* (Thiamine*) 100 Mg Tablet, 100 MG PO DAILY, #30 TAB Prov:CARL PIERRE MD 10/06/16 Multivitamins* (Theragran*) 1 Tab Tab, 1 TAB PO DAILY, #30 TAB Prov:CARL PIERRE MD 10/06/16 Folic Acid* (Folic Acid*) 0.8 Mg Tablet, 0.8 MG PO DAILY, #30 TAB Prov:CARL PIERRE MD 10/06/16 Lorazepam* (Lorazepam*) 1 Mg Tablet, 1 MG PO BID Y for AGITATION/ANXIETY, #1 TAB Prov:CARL PIERRE MD 10/06/16 Omeprazole* (Omeprazole*) 20 Mg Capsule.dr, 20 MG PO BID, #60 CAP Prov:CARL PIERRE MD 10/06/16 Chlordiazepoxide* (Chlordiazepoxide*) 25 Mg Capsule, 25 MG PO TID, #1 CAP Prov:CARL PIERRE MD 10/06/16 Discontinued Reported Medications Ibuprofen* (Ibuprofen*) 400 Mg Tablet, 400 MG PO Q6H Y for PAIN, TAB 10/01/16 Lorazepam* (Ativan*) 2 Mg Tablet, 2 MG PO HS Y for INSOMNIA, #30 TAB 10/01/16 Pending Labs Laboratory Tests Test 10/07/16 19:30 10/08/16 05:44 10/08/16 12:05 Ammonia 62umol/l (9-30) 78umol/l (9-30) 44umol/l (9-30) Alanine Aminotransferase (ALT/SGPT) 55IU/L (13-69) Albumin 2.3g/dl (3.3-4.9) Albumin/Globulin Ratio 0.65 Alkaline Phosphatase 113IU/L (42-121) Anion Gap 12 (8-16) Aspartate Amino Transf (AST/SGOT) 61IU/L (15-46) Basophils # 0.010^3/ul (0.0-0.1) Basophils % 0.7% (0.0-2.0) Blood Urea Nitrogen 6mg/dl (7-20) Calcium Level 8.1mg/dl (8.4-10.2) Carbon Dioxide Level 25mmol/L (21-31) Chloride Level 110mmol/L (97-110) Creatine Kinase 161IU/L (23-200) Creatinine 0.49mg/dl (0.61-1.24) Direct Bilirubin 0.00mg/dl (0.00-0.20) Eosinophils # 0.310^3/ul (0.0-0.5) Eosinophils % 7.4% (0.0-7.0) Globulin 3.50g/dl (1.3-3.2) Glucose Level 91mg/dl (70-220) Hematocrit 31.0% (42.0-52.0) Hemoglobin 9.4g/dl (14.0-18.0) Indirect Bilirubin 1.7mg/dl (0-1.1) Lymphocytes # 1.010^3/ul (0.8-2.9) Lymphocytes % 21.6% (15.0-51.0) Magnesium Level 1.4mg/dl (1.7-2.5) Mean Corpuscular Hemoglobin 26.6pg (29.0-33.0) Mean Corpuscular Hemoglobin Concent 30.3g/dl (32.0-37.0) Mean Corpuscular Volume 87.6fl (82.0-101.0) Mean Platelet Volume fl (7.4-10.4) Monocytes # 0.610^3/ul (0.3-0.9) Monocytes % 13.7% (0.0-11.0) Neutrophils # 2.610^3/ul (1.6-7.5) Neutrophils % 56.4% (39.0-77.0) Nucleated Red Blood Cells # 0.010^3/ul (0.0-0.0) Nucleated Red Blood Cells % 0.0/100WBC (0.0-0.0) Platelet Count 6210^3/UL (140-415) Potassium Level 3.6mmol/L (3.5-5.1) Red Blood Count 3.5410^6/ul (4.70-6.10) Red Cell Distribution Width 24.5% (11.5-14.5) Sodium Level 143mmol/L (135-144) Total Bilirubin 1.7mg/dl (0.2-1.3) Total Protein 5.8g/dl (6.1-8.1) White Blood Count 4.610^3/ul (4.8-10.8) CARL PIERRE MD Oct 08, 2016 13:05
[2016-10-08] MEDS: HYDROCODONE/APAP (5/325) TAB PO PRN ×2 (16:13→20:45)
[2016-10-08] MEDS: PANTOPRAZOLE (EC) 40 MG TAB PO SCH (17:28)
[2016-10-08] MEDS ORDERED: PANTOPRAZOLE 40 MG INJ IV SCH (18:00)
[2016-10-08 20:00] VITALS: BP 113/57; PULSE 77; RESP 20
[2016-10-08] MEDS: LORAZEPAM 2 MG INJ IV PRN (22:06)
[2016-10-09] MEDS: HYDROCODONE/APAP (5/325) TAB PO PRN ×2 (05:26→17:22)
[2016-10-09] MEDS: PANTOPRAZOLE (EC) 40 MG TAB PO SCH ×2 (05:26→17:12)
[2016-10-09 06:22] LABS: ADD SCAN DIFF NO
[2016-10-09 06:50] LABS: POTASSIUM 3.5 mmol/L (3.5-5.1)
[2016-10-09 06:52] LABS: ABNORMAL IP MESSAGE 1; BASOPHILS % 0.8 % (0.0-2.0); EOSINOPHILS # 0.4 10^3/ul (0.0-0.5); EOSINOPHILS % 8.1 % (0.0-7.0); HEMATOCRIT 30.8 % (42.0-52.0); HEMOGLOBIN 9.4 g/dl (14.0-18.0); LYMPHOCYTES # 1.1 10^3/ul (0.8-2.9); LYMPHOCYTES % 21.7 % (15.0-51.0); MEAN CORPUSCULAR HEMOGLOBIN 27.4 pg (29.0-33.0); MEAN CORPUSCULAR HGB CONC 30.5 g/dl (32.0-37.0); MEAN CORPUSCULAR VOLUME 89.8 fl (82.0-101.0); MEAN PLATELET VOLUME 10.3 fl (7.4-10.4); MONOCYTE # 0.6 10^3/ul (0.3-0.9); MONOCYTES % 11.6 % (0.0-11.0); NEUTROPHIL # 2.8 10^3/ul (1.6-7.5); NEUTROPHILS % 57.6 % (39.0-77.0); PLATELET COUNT 67 10^3/UL (140-415); RED BLOOD COUNT 3.43 10^6/ul (4.70-6.10); RED CELL DISTRIBUTION WIDTH 24.9 % (11.5-14.5); WHITE BLOOD COUNT 4.8 10^3/ul (4.8-10.8)
[2016-10-09 06:53] LABS: CREATININE 0.51 mg/dl (0.61-1.24)
[2016-10-09 06:54] LABS: CALCIUM 8.1 mg/dl (8.4-10.2)
[2016-10-09 07:42] VITALS: BP 137/63; RESP 16
[2016-10-09] MEDS: MULTIVITAMINS 10 ML, THIAMINE 100 MG, FOLIC ACID 1 MG in SOD CHLORIDE 0.9% 1,000 ML IVPB SCH (08:02)
[2016-10-09] MEDS: ASCORBIC ACID 500 MG TAB PO SCH (08:02)
[2016-10-09] MEDS: LACTULOSE 30ML CUP PO SCH ×4 (08:02→20:47)
[2016-10-09] MEDS: CHLORDIAZEPOXIDE 25 MG CAP PO SCH ×3 (08:02→20:47)
[2016-10-09] MEDS: FERROUS SULFATE (EC) 325 MG TAB PO SCH (08:02)
[2016-10-09] MEDS: FAMOTIDINE 20 MG TAB PO SCH (08:02)
--- NOTE | 2016-10-09 11:44 | PN ---
Date/Time of Note Date/Time of Note DATE: 10/09/16 TIME: 11:42 Assessment/Plan VTE Prophylaxis VTE Prophylaxis Intervention: SCD's Lines/Catheters IV [facility]from [facility] Peripheral IV Urinary Cath still in place: No Assessment/Plan Chief Complaint/Hosp Course ASSESSMENT AND PLAN: 1. Rhabdomyolysis. Improving status post IV fluids 2. History and current alcohol dependency. Patient has been started on banana bag, Librium and Ativan. 3. Transaminitis secondary to #3. 4. Hepatic encephalopathy / altered mental status,, follow-up ammonia level, continue lactulose 5. Thrombocytopenia secondary to history of alcoholism. No evidence of acute bleeding at this time. 6. Anemia. Continue iron supplementation, follow up hemoglobin and hematocrit 7. For deep venous thrombosis prophylaxis, on sequential compression devices. 8. Gastrointestinal prophylaxis, on Protonix We will continue to monitor patient closely. Further recommendations, management and treatment as per clinical course. Problems: Subjective 24 Hr Interval Summary Free Text/Dictation Patient is more altered than yesterday Able to follow simple commands only Tolerating oral intake Exam/Review of Systems Vital Signs Vitals Vital Signs Date Time Temp Pulse Resp B/P Pulse Ox O2 Delivery O2 Flow Rate FiO2 10/09/16 07:42 98.2 80 16 137/63 95 10/08/16 20:00 Room Air 10/06/16 08:00 2.0 10/05/16 15:47 21 Intake and Output 10/08/16 10/08/16 10/09/16 15:00 23:00 07:00 Intake Total 2611.2 ml 400 ml Output Total 850 ml 1500 ml Balance 1761.2 ml -1100 ml Exam General: The patient is well-developed, Not in acute distress. HEENT: Atraumatic, normocephalic. The pupils are equal and round . Neck: Supple with full range of motion. Chest: Normal expansion of the thorax during inspiration Lungs: Clear to auscultation bilaterally Heart: Normal S1-S2, Regular rhythm and rate. Abdomen: Soft , nontender, nondistended , bowel sounds are present. Extremities: Normal to inspection, no edema no cyanosis Neurologic: Altered , the patient is awake, Results Result Diagram: 10/09/16 0520 10/09/16 0520 Results 24 hrs Laboratory Tests Test 10/08/16 12:05 10/09/16 05:20 Ammonia 44 H 93 #H Anion Gap 11 Basophils # 0.0 Basophils % 0.8 Blood Urea Nitrogen 5 L Calcium Level 8.1 L Carbon Dioxide Level 27 Chloride Level 110 Creatinine 0.51 L Eosinophils # 0.4 Eosinophils % 8.1 H Glucose Level 95 Hematocrit 30.8 L Hemoglobin 9.4 L Lymphocytes # 1.1 Lymphocytes % 21.7 Mean Corpuscular Hemoglobin 27.4 L Mean Corpuscular Hemoglobin Concent 30.5 L Mean Corpuscular Volume 89.8 Mean Platelet Volume 10.3 Monocytes # 0.6 Monocytes % 11.6 H Neutrophils # 2.8 Neutrophils % 57.6 Nucleated Red Blood Cells # 0.0 Nucleated Red Blood Cells % 0.0 Platelet Count 67 L Potassium Level 3.5 Red Blood Count 3.43 L Red Cell Distribution Width 24.9 H Sodium Level 144 White Blood Count 4.8 Medications Medications Current Medications Multivitamins/ Thiamine HCl/ Folic Acid/Sodium Chloride (Mvi-12 Adult/ Vitamin B1/Folic Acid/NS) 1,011.2 ml @ 100 mls/ hr DAILY@09 IVPB Last administered on 10/09/16 08:02; Admin Dose 100 MLS/HR; Start 10/06/16 at 09:00 Ondansetron HCl (Zofran Inj) 4 mg Q6H PRN IV NAUSEA AND/OR VOMITING; Start at 16:30 Morphine Sulfate (morphine) 1 mg Q4H PRN IV SEVERE PAIN LEVEL 7-10 Last administered on 10/07/16 04:04; Admin Dose 1 MG; Start 10/05/16 at 16:30 Chlordiazepoxide (Librium) 25 mg TID PO Last administered on 10/09/16 08:02; Admin Dose 25 MG; Start 10/05/16 at 21:00 Lorazepam (Ativan) 1 mg Q6H PRN IV AGITATION/ANXIETY Last administered on 22:06; Admin Dose 1 MG; Start 10/05/16 at 16:30 Famotidine (Pepcid) 20 mg DAILY PO Last administered on 10/09/16 08:02; Admin Dose 20 MG; Start 10/06/16 at 09:00 Lactulose (Enulose) 20 gm TID PO Last administered on 10/09/16 08:02; Admin Dose 20 GM; Start 10/07/16 at 21:00 Ferrous Sulfate (Ferrous Sulfate (Ec)) 325 mg DAILY PO Last administered on 08:02; Admin Dose 325 MG; Start 10/07/16 at 12:00 Ascorbic Acid (Vitamin C) 500 mg DAILY PO Last administered on 10/09/16 08:02 ; Admin Dose 500 MG; Start 10/08/16 at 09:00 Acetaminophen (Tylenol Tab) 650 mg Q6H PRN PO PAIN AND OR ELEVATED TEMP Last administered on 10/08/16 11:20; Admin Dose 650 MG; Start 10/08/16 at 11:14 Pantoprazole (Protonix Tab) 40 mg BID@06,18 PO Last administered on 10/09/16 05:26; Admin Dose 40 MG; Start 10/08/16 at 18:00 Acetaminophen/ Hydrocodone Bitart ([place] (5/325)) 1 tab Q4H PRN PO pain Last administered on 10/09/16 05:26; Admin Dose 1 TAB; Start 10/08/16 at 16:00 CARL PIERRE MD Oct 09, 2016 11:44
[2016-10-09] MEDS: LORAZEPAM 2 MG INJ IV PRN ×2 (17:23→23:45)
[2016-10-09 20:00] VITALS: BP 138/77; RESP 19
[2016-10-10] MEDS: LORAZEPAM 2 MG INJ IV PRN ×3 (05:32→23:27)
[2016-10-10] MEDS: PANTOPRAZOLE (EC) 40 MG TAB PO SCH ×2 (05:32→17:37)
[2016-10-10 05:42] LABS: ADD SCAN DIFF NO
[2016-10-10 06:01] LABS: ABNORMAL IP MESSAGE 1; BASOPHILS % 0.6 % (0.0-2.0); EOSINOPHILS # 0.4 10^3/ul (0.0-0.5); EOSINOPHILS % 8.4 % (0.0-7.0); HEMATOCRIT 32.2 % (42.0-52.0); HEMOGLOBIN 9.9 g/dl (14.0-18.0); LYMPHOCYTES # 1.1 10^3/ul (0.8-2.9); LYMPHOCYTES % 23.3 % (15.0-51.0); MEAN CORPUSCULAR HEMOGLOBIN 27.1 pg (29.0-33.0); MEAN CORPUSCULAR HGB CONC 30.7 g/dl (32.0-37.0); MEAN CORPUSCULAR VOLUME 88.2 fl (82.0-101.0); MEAN PLATELET VOLUME 9.8 fl (7.4-10.4); MONOCYTE # 0.6 10^3/ul (0.3-0.9); MONOCYTES % 13.1 % (0.0-11.0); NEUTROPHIL # 2.7 10^3/ul (1.6-7.5); NEUTROPHILS % 54.4 % (39.0-77.0); PLATELET COUNT 64 10^3/UL (140-415); RED BLOOD COUNT 3.65 10^6/ul (4.70-6.10); RED CELL DISTRIBUTION WIDTH 24.6 % (11.5-14.5); WHITE BLOOD COUNT 4.9 10^3/ul (4.8-10.8)
[2016-10-10 06:05] LABS: ALBUMIN 2.5 g/dl (3.3-4.9)
[2016-10-10 06:06] LABS: POTASSIUM 3.6 mmol/L (3.5-5.1)
[2016-10-10 06:08] LABS: ALBUMIN/GLOBULIN RATIO 0.56; BILIRUBIN,INDIRECT 1.6 mg/dl (0-1.1); BILIRUBIN,TOTAL 1.6 mg/dl (0.2-1.3); CREATININE 0.49 mg/dl (0.61-1.24); TOTAL PROTEIN 6.9 g/dl (6.1-8.1)
[2016-10-10 06:09] LABS: CALCIUM 8.3 mg/dl (8.4-10.2); MAGNESIUM 1.4 mg/dl (1.7-2.5)
[2016-10-10 07:00] VITALS: BP 131/67; RESP 20
[2016-10-10] MEDS: FERROUS SULFATE (EC) 325 MG TAB PO SCH (08:30)
[2016-10-10] MEDS: MULTIVITAMINS 10 ML, THIAMINE 100 MG, FOLIC ACID 1 MG in SOD CHLORIDE 0.9% 1,000 ML IVPB SCH (08:30)
[2016-10-10] MEDS: FAMOTIDINE 20 MG TAB PO SCH (08:30)
[2016-10-10] MEDS: LACTULOSE 30ML CUP PO SCH ×4 (08:30→20:44)
[2016-10-10] MEDS: CHLORDIAZEPOXIDE 25 MG CAP PO SCH ×3 (08:30→20:44)
[2016-10-10] MEDS: ASCORBIC ACID 500 MG TAB PO SCH (08:30)
--- NOTE | 2016-10-10 10:14 | PN ---
Date/Time of Note Date/Time of Note DATE: 10/10/16 TIME: 10:11 Assessment/Plan VTE Prophylaxis VTE Prophylaxis Intervention: SCD's Lines/Catheters IV Catheter Type (from Nrs): Peripheral IV Urinary Cath still in place: No Assessment/Plan Assessment/Plan 1. Rhabdomyolysis. Improving status post IV fluids- 2. History and current alcohol dependency. Patient has been started on banana bag, Librium and Ativan.- pt is still confused with hepatic encephalopathy 3. Transaminitis secondary to #3. 4. Hepatic encephalopathy / altered mental status, ammonia improvin but pt is still confused on lactulose, BP stable, on librium also 5. Thrombocytopenia secondary to history of alcoholism. No evidence of acute bleeding at this time. 6. Anemia. Continue iron supplementation, follow up hemoglobin and hematocrit 7. For deep venous thrombosis prophylaxis, on sequential compression devices. 8. Gastrointestinal prophylaxis, on Protonix Subjective 24 Hr Interval Summary Free Text/Dictation pt is still confused, ammonia improving, Bp stable Exam/Review of Systems Vital Signs Vitals Vital Signs Date Time Temp Pulse Resp B/P Pulse Ox O2 Delivery O2 Flow Rate FiO2 10/10/16 07:00 97.8 85 20 131/67 97 10/08/16 20:00 Room Air 10/06/16 08:00 2.0 Intake and Output 10/09/16 10/09/16 10/10/16 15:00 23:00 07:00 Intake Total 2371.2 ml Output Total 1650 ml Balance 721.2 ml Exam General: pt is confused HEENT: Atraumatic, normocephalic. The pupils are equal and round . Neck: Supple with full range of motion. Chest: Normal expansion of the thorax during inspiration Lungs: Clear to auscultation bilaterally Heart: Normal S1-S2, Regular rhythm and rate. Abdomen: Soft , nontender, nondistended , bowel sounds are present. Extremities: Normal to inspection, no edema no cyanosis Neurologic: Altered , the patient is awake, Results Result Diagram: 10/10/16 0500 10/10/16 0500 Results 24 hrs Laboratory Tests Test 10/10/16 05:00 Alanine Aminotransferase (ALT/SGPT) 45 Albumin 2.5 L Albumin/Globulin Ratio 0.56 Alkaline Phosphatase 151 H Ammonia 46 #H Anion Gap 13 Aspartate Amino Transf (AST/SGOT) 52 H Basophils # 0.0 Basophils % 0.6 Blood Urea Nitrogen 5 L Calcium Level 8.3 L Carbon Dioxide Level 25 Chloride Level 109 Creatinine 0.49 L Direct Bilirubin 0.00 Eosinophils # 0.4 Eosinophils % 8.4 H Globulin 4.40 H Glucose Level 91 Hematocrit 32.2 L Hemoglobin 9.9 L Indirect Bilirubin 1.6 H Lymphocytes # 1.1 Lymphocytes % 23.3 Magnesium Level 1.4 L Mean Corpuscular Hemoglobin 27.1 L Mean Corpuscular Hemoglobin Concent 30.7 L Mean Corpuscular Volume 88.2 Mean Platelet Volume 9.8 Monocytes # 0.6 Monocytes % 13.1 H Neutrophils # 2.7 Neutrophils % 54.4 Nucleated Red Blood Cells # 0.0 Nucleated Red Blood Cells % 0.0 Platelet Count 64 L Potassium Level 3.6 Red Blood Count 3.65 L Red Cell Distribution Width 24.6 H Sodium Level 143 Total Bilirubin 1.6 H Total Protein 6.9 # White Blood Count 4.9 Medications Medications Current Medications Multivitamins/ Thiamine HCl/ Folic Acid/Sodium Chloride (Mvi-12 Adult/ Vitamin B1/Folic Acid/NS) 1,011.2 ml @ 100 mls/ hr DAILY@09 IVPB Last administered on 10/10/16 08:30; Admin Dose 100 MLS/HR; Start 10/06/16 at 09:00 Ondansetron HCl (Zofran Inj) 4 mg Q6H PRN IV NAUSEA AND/OR VOMITING; Start at 16:30 Morphine Sulfate (morphine) 1 mg Q4H PRN IV SEVERE PAIN LEVEL 7-10 Last administered on 10/07/16 04:04; Admin Dose 1 MG; Start 10/05/16 at 16:30 Chlordiazepoxide (Librium) 25 mg TID PO Last administered on 10/10/16 08:30; Admin Dose 25 MG; Start 10/05/16 at 21:00 Lorazepam (Ativan) 1 mg Q6H PRN IV AGITATION/ANXIETY Last administered on 05:32; Admin Dose 1 MG; Start 10/05/16 at 16:30 Famotidine (Pepcid) 20 mg DAILY PO Last administered on 10/10/16 08:30; Admin Dose 20 MG; Start 10/06/16 at 09:00 Ferrous Sulfate (Ferrous Sulfate (Ec)) 325 mg DAILY PO Last administered on 10/10 08:30; Admin Dose 325 MG; Start 10/07/16 at 12:00 Ascorbic Acid (Vitamin C) 500 mg DAILY PO Last administered on 10/10/16 08:30; Admin Dose 500 MG; Start 10/08/16 at 09:00 Acetaminophen (Tylenol Tab) 650 mg Q6H PRN PO PAIN AND OR ELEVATED TEMP Last administered on 10/08/16 11:20; Admin Dose 650 MG; Start 10/08/16 at 11:14 Pantoprazole (Protonix Tab) 40 mg BID@06,18 PO Last administered on 10/10/16 05 :32; Admin Dose 40 MG; Start 10/08/16 at 18:00 Acetaminophen/ Hydrocodone Bitart ([place] (5/325)) 1 tab Q4H PRN PO pain Last administered on 10/09/16 17:22; Admin Dose 1 TAB; Start 10/08/16 at 16:00 Lactulose 20 gm 20 gm QID PO Last administered on 10/10/16 08:30; Admin Dose 20 GM; Start 10/09/16 at 12:00 Magnesium Sulfate (Magnesium Sulfate 2 Gm/50 ml) 50 ml @ 25 mls/hr ONCE ONCE IVPB ; Start 10/10/16 at 11:00; Stop 10/10/16 at 12:59 JEOVANNY WATT MD Oct 10, 2016 10:13
[2016-10-10] MEDS ORDERED: MAGNESIUM SULFATE 2 GM/50 ML 50 ML IVPB ONE (11:00)
[2016-10-10 20:00] VITALS: BP 130/60; PULSE 88; RESP 17
[2016-10-10] MEDS: morphine 2 MG INJ IV PRN (21:17)
[2016-10-10] MEDS ORDERED: NITROGLYCERIN (SL) 0.4 MG TAB SL PRN (21:30)
[2016-10-11] MEDS ORDERED: ZOLPIDEM 5 MG TAB PO PRN (01:42)
[2016-10-11 06:12] LABS: ADD SCAN DIFF NO
[2016-10-11] MEDS: PANTOPRAZOLE (EC) 40 MG TAB PO SCH ×2 (06:13→17:28)
[2016-10-11 06:32] LABS: INR 1.5; PARTIAL THROMBOPLASTIN TIME 34.4 Sec (25.0-35.0); PROTIME 18.2 Sec (12.2-14.2); PT RATIO 1.4
[2016-10-11 06:36] LABS: ABNORMAL IP MESSAGE 1; ALBUMIN 2.4 g/dl (3.3-4.9); BASOPHILS % 0.6 % (0.0-2.0); EOSINOPHILS # 0.4 10^3/ul (0.0-0.5); EOSINOPHILS % 7.4 % (0.0-7.0); HEMATOCRIT 32.3 % (42.0-52.0); HEMOGLOBIN 10.1 g/dl (14.0-18.0); LYMPHOCYTES # 1.1 10^3/ul (0.8-2.9); LYMPHOCYTES % 23.5 % (15.0-51.0); MEAN CORPUSCULAR HEMOGLOBIN 27.9 pg (29.0-33.0); MEAN CORPUSCULAR HGB CONC 31.3 g/dl (32.0-37.0); MEAN CORPUSCULAR VOLUME 89.2 fl (82.0-101.0); MONOCYTE # 0.6 10^3/ul (0.3-0.9); MONOCYTES % 11.6 % (0.0-11.0); NEUTROPHIL # 2.7 10^3/ul (1.6-7.5); NEUTROPHILS % 56.7 % (39.0-77.0); RED BLOOD COUNT 3.62 10^6/ul (4.70-6.10); RED CELL DISTRIBUTION WIDTH 24.5 % (11.5-14.5); WHITE BLOOD COUNT 4.8 10^3/ul (4.8-10.8)
[2016-10-11 06:37] LABS: POTASSIUM 3.6 mmol/L (3.5-5.1)
[2016-10-11 06:39] LABS: ALBUMIN/GLOBULIN RATIO 0.57; BILIRUBIN,INDIRECT 1.4 mg/dl (0-1.1); BILIRUBIN,TOTAL 1.4 mg/dl (0.2-1.3); CALCIUM 8.1 mg/dl (8.4-10.2); CREATININE 0.5 mg/dl (0.61-1.24); TOTAL PROTEIN 6.6 g/dl (6.1-8.1)
[2016-10-11 06:54] LABS: PLATELET COUNT 60 10^3/UL (140-415)
[2016-10-11 07:30] VITALS: BP 133/60; RESP 22
[2016-10-11] MEDS: ASCORBIC ACID 500 MG TAB PO SCH (08:17)
[2016-10-11] MEDS: MULTIVITAMINS 10 ML, THIAMINE 100 MG, FOLIC ACID 1 MG in SOD CHLORIDE 0.9% 1,000 ML IVPB SCH (08:17)
[2016-10-11] MEDS: FAMOTIDINE 20 MG TAB PO SCH (08:17)
[2016-10-11] MEDS: FERROUS SULFATE (EC) 325 MG TAB PO SCH (08:17)
[2016-10-11] MEDS: CHLORDIAZEPOXIDE 25 MG CAP PO SCH ×3 (08:17→21:38)
[2016-10-11] MEDS: LACTULOSE 30ML CUP PO SCH ×4 (08:17→21:38)
[2016-10-11] MEDS: LORAZEPAM 2 MG INJ IV PRN (09:02)
--- NOTE | 2016-10-11 12:29 | PN ---
Date/Time of Note Date/Time of Note DATE: 10/11/16 TIME: 12:25 Assessment/Plan VTE Prophylaxis VTE Prophylaxis Intervention: SCD's Lines/Catheters IV Catheter Type (from [facility]): Peripheral IV Urinary Cath still in place: No Assessment/Plan Chief Complaint/Hosp Course ASSESSMENT AND PLAN: 1. Rhabdomyolysis. Resolved status post IV fluids 2. History and current alcohol dependency. Continue banana bag, Librium and Ativan. 3. Transaminitis secondary to #3. 4. Hepatic encephalopathy / altered mental status,, follow-up ammonia level, continue lactulose 5. Thrombocytopenia secondary to history of alcoholism. No evidence of acute bleeding at this time. 6. Anemia. Continue iron supplementation, follow up hemoglobin and hematocrit 7. For deep venous thrombosis prophylaxis, on sequential compression devices. 8. Gastrointestinal prophylaxis, on Protonix We will continue to monitor patient closely. Further recommendations, management and treatment as per clinical course. Problems: Subjective 24 Hr Interval Summary Free Text/Dictation Patient still continues to act confused and altered He does not have any difficulty with oral intake although he still has gait instability when he ambulates to the bathroom No nausea vomiting or diarrhea Exam/Review of Systems Vital Signs Vitals Vital Signs Date Time Temp Pulse Resp B/P Pulse Ox O2 Delivery O2 Flow Rate FiO2 10/11/16 07:30 98.0 79 22 133/60 97 10/10/16 20:00 Room Air Intake and Output 10/10/16 10/10/16 10/11/16 15:00 23:00 07:00 Intake Total 2341.2 ml 800 ml Output Total 900 ml Balance 2341.2 ml -100 ml Exam General: The patient is well-developed, Not in acute distress. HEENT: Atraumatic, normocephalic. The pupils are equal and round . Neck: Supple with full range of motion. Chest: Normal expansion of the thorax during inspiration Lungs: Clear to auscultation bilaterally Heart: Normal S1-S2, Regular rhythm and rate. Abdomen: Soft , nontender, nondistended , bowel sounds are present. Extremities: Normal to inspection, no edema no cyanosis Neurologic: The patient is awake, not oriented to place or time Results Result Diagram: 10/11/16 0535 10/11/16 0535 Results 24 hrs Laboratory Tests Test 10/10/16 21:33 10/11/16 05:35 Troponin I < 0.012 Activated Partial Thromboplast Time 34.4 Alanine Aminotransferase (ALT/SGPT) 41 Albumin 2.4 L Albumin/Globulin Ratio 0.57 Alkaline Phosphatase 125 H Anion Gap 13 Aspartate Amino Transf (AST/SGOT) 44 Basophils # 0.0 Basophils % 0.6 Blood Urea Nitrogen 5 L Calcium Level 8.1 L Carbon Dioxide Level 26 Chloride Level 108 Creatinine 0.50 L Direct Bilirubin 0.00 Eosinophils # 0.4 Eosinophils % 7.4 H Globulin 4.20 H Glucose Level 99 Hematocrit 32.3 L Hemoglobin 10.1 L INR International Normalized Ratio 1.50 Indirect Bilirubin 1.4 H Lymphocytes # 1.1 Lymphocytes % 23.5 Magnesium Level 1.6 L Mean Corpuscular Hemoglobin 27.9 L Mean Corpuscular Hemoglobin Concent 31.3 L Mean Corpuscular Volume 89.2 Mean Platelet Volume Monocytes # 0.6 Monocytes % 11.6 H Neutrophils # 2.7 Neutrophils % 56.7 Nucleated Red Blood Cells # 0.0 Nucleated Red Blood Cells % 0.0 Platelet Count 60 L Potassium Level 3.6 Prothrombin Time 18.2 H Prothrombin Time Ratio 1.4 Red Blood Count 3.62 L Red Cell Distribution Width 24.5 H Sodium Level 143 Total Bilirubin 1.4 H Total Protein 6.6 White Blood Count 4.8 Medications Medications Current Medications Multivitamins/ Thiamine HCl/ Folic Acid/Sodium Chloride (Mvi-12 Adult/ Vitamin B1/Folic Acid/NS) 1,011.2 ml @ 100 mls/ hr DAILY@09 IVPB Last administered on 10/11/16 08:17; Admin Dose 100 MLS/HR; Start 10/06/16 at 09:00 Ondansetron HCl (Zofran Inj) 4 mg Q6H PRN IV NAUSEA AND/OR VOMITING; Start at 16:30 Morphine Sulfate (morphine) 1 mg Q4H PRN IV SEVERE PAIN LEVEL 7-10 Last administered on 10/10/16 21:17; Admin Dose 1 MG; Start 10/05/16 at 16:30 Chlordiazepoxide (Librium) 25 mg TID PO Last administered on 10/11/16 08:17; Admin Dose 25 MG; Start 10/05/16 at 21:00 Lorazepam (Ativan) 1 mg Q6H PRN IV AGITATION/ANXIETY Last administered on 09:02; Admin Dose 1 MG; Start 10/05/16 at 16:30 Famotidine (Pepcid) 20 mg DAILY PO Last administered on 10/11/16 08:17; Admin Dose 20 MG; Start 10/06/16 at 09:00 Ferrous Sulfate (Ferrous Sulfate (Ec)) 325 mg DAILY PO Last administered on 10/11 08:17; Admin Dose 325 MG; Start 10/07/16 at 12:00 Ascorbic Acid (Vitamin C) 500 mg DAILY PO Last administered on 10/11/16 08:17; Admin Dose 500 MG; Start 10/08/16 at 09:00 Acetaminophen (Tylenol Tab) 650 mg Q6H PRN PO PAIN AND OR ELEVATED TEMP Last administered on 10/08/16 11:20; Admin Dose 650 MG; Start 10/08/16 at 11:14 Pantoprazole (Protonix Tab) 40 mg BID@06,18 PO Last administered on 10/11/16 06 :13; Admin Dose 40 MG; Start 10/08/16 at 18:00 Acetaminophen/ Hydrocodone Bitart ([place] (5/325)) 1 tab Q4H PRN PO pain Last administered on 10/09/16 17:22; Admin Dose 1 TAB; Start 10/08/16 at 16:00 Lactulose (Enulose) 20 gm QID PO Last administered on 10/11/16 08:17; Admin Dose 20 GM; Start 10/09/16 at 12:00 Nitroglycerin (Nitroglycerin (Sl Tab) 0.4 Mg) 1 tab Q5M PRN SL ANGINA Last administered on 10/10/16 21:24; Admin Dose 1 TAB; Start 10/10/16 at 21:30 Zolpidem Tartrate (Ambien) 10 mg HS PRN PO INSOMNIA Last administered on 01:48; Admin Dose 10 MG; Start 10/11/16 at 01:42 CARL PIERRE MD Oct 11, 2016 12:29
[2016-10-11] MEDS: MAGNESIUM OXIDE 400 MG TAB PO SCH ×2 (12:35→21:38)
[2016-10-11 20:32] VITALS: BP 133/66; RESP 20
[2016-10-12] MEDS: LORAZEPAM 2 MG INJ IV PRN ×2 (03:58→13:08)
[2016-10-12] MEDS: PANTOPRAZOLE (EC) 40 MG TAB PO SCH ×2 (06:01→17:34)
[2016-10-12 07:00] VITALS: BP 119/62; RESP 20
[2016-10-12] MEDS: LACTULOSE 30ML CUP PO SCH ×4 (09:16→22:12)
[2016-10-12] MEDS: MULTIVITAMINS 10 ML, THIAMINE 100 MG, FOLIC ACID 1 MG in SOD CHLORIDE 0.9% 1,000 ML IVPB SCH (09:16)
[2016-10-12] MEDS: CHLORDIAZEPOXIDE 25 MG CAP PO SCH ×3 (09:17→22:12)
[2016-10-12] MEDS: MAGNESIUM OXIDE 400 MG TAB PO SCH ×2 (09:17→22:12)
[2016-10-12] MEDS: ACETAMINOPHEN 325 MG TAB PO PRN (09:17)
[2016-10-12] MEDS: FAMOTIDINE 20 MG TAB PO SCH (09:17)
[2016-10-12] MEDS: FERROUS SULFATE (EC) 325 MG TAB PO SCH (09:17)
[2016-10-12] MEDS: ASCORBIC ACID 500 MG TAB PO SCH (09:17)
--- NOTE | 2016-10-12 13:37 | RADRPT ---
Vent Rate: 94 bpm RR Interval: 0 msec LA Interval: 146 msec QRS Duration: 104 msec QT Interval: 392 msec QTC Interval: 490 msec P-R-T [place]: 21 - 1 - 18 degrees Normal sinus rhythm Prolonged QT LVH Abnormal ECG Electronically Signed By: Marco Williamson [id number]
--- NOTE | 2016-10-12 15:23 | PN ---
Date/Time of Note Date/Time of Note DATE: 10/12/16 TIME: 15:22 Assessment/Plan VTE Prophylaxis VTE Prophylaxis Intervention: SCD's Lines/Catheters IV Catheter Type (from Nrs): [place] Urinary Cath still in place: No Assessment/Plan Assessment/Plan 1. Rhabdomyolysis. Improving status post IV fluids- 2. History and current alcohol dependency. Patient has been started on banana bag, Librium and Ativan.- pt is still confused with hepatic encephalopathy 3. Transaminitis secondary to #3. 4. Hepatic encephalopathy / altered mental status, ammonia improvin but pt is still confused on lactulose, BP stable, on librium also 5. Thrombocytopenia secondary to history of alcoholism. No evidence of acute bleeding at this time. 6. Anemia. Continue iron supplementation, follow up hemoglobin and hematocrit 7. For deep venous thrombosis prophylaxis, on sequential compression devices. 8. Gastrointestinal prophylaxis, on Protonix Subjective 24 Hr Interval Summary Free Text/Dictation pt still dizzy and not able to abmbulate with PT, still in withdrawl Exam/Review of Systems Vital Signs Vitals Vital Signs Date Time Temp Pulse Resp B/P Pulse Ox O2 Delivery O2 Flow Rate FiO2 10/12/16 07:00 98.1 78 20 119/62 100 10/10/16 20:00 Room Air Intake and Output 10/11/16 10/11/16 10/12/16 15:00 23:00 07:00 Intake Total 2151.2 ml 700 ml Output Total 400 ml 1500 ml Balance 1751.2 ml -800 ml Exam General: more alert today but confused HEENT: Atraumatic, normocephalic. The pupils are equal and round . Neck: Supple with full range of motion. Chest: Normal expansion of the thorax during inspiration Lungs: Clear to auscultation bilaterally Heart: Normal S1-S2, Regular rhythm and rate. Abdomen: Soft , nontender, nondistended , bowel sounds are present. Extremities: Normal to inspection, no edema no cyanosis Neurologic: Altered , the patient is awake, Results Result Diagram: 10/11/16 0535 10/11/16 0535 Results 24 hrs Laboratory Tests Test 10/12/16 05:52 Ammonia 83 #H Magnesium Level 1.7 Medications Medications Current Medications Multivitamins/ Thiamine HCl/ Folic Acid/Sodium Chloride (Mvi-12 Adult/ Vitamin B1/Folic Acid/NS) 1,011.2 ml @ 100 mls/ hr DAILY@09 IVPB Last administered on 10/12/16 09:16; Admin Dose 100 MLS/HR; Start 10/06/16 at 09:00 Ondansetron HCl (Zofran Inj) 4 mg Q6H PRN IV NAUSEA AND/OR VOMITING; Start at 16:30 Morphine Sulfate (morphine) 1 mg Q4H PRN IV SEVERE PAIN LEVEL 7-10 Last administered on 10/10/16 21:17; Admin Dose 1 MG; Start 10/05/16 at 16:30 Chlordiazepoxide (Librium) 25 mg TID PO Last administered on 10/12/16 12:31; Admin Dose 25 MG; Start 10/05/16 at 21:00 Lorazepam (Ativan) 1 mg Q6H PRN IV AGITATION/ANXIETY Last administered on 13:08; Admin Dose 1 MG; Start 10/05/16 at 16:30 Famotidine (Pepcid) 20 mg DAILY PO Last administered on 10/12/16 09:17; Admin Dose 20 MG; Start 10/06/16 at 09:00 Ferrous Sulfate (Ferrous Sulfate (Ec)) 325 mg DAILY PO Last administered on 10/12 09:17; Admin Dose 325 MG; Start 10/07/16 at 12:00 Ascorbic Acid (Vitamin C) 500 mg DAILY PO Last administered on 10/12/16 09:17; Admin Dose 500 MG; Start 10/08/16 at 09:00 Acetaminophen (Tylenol Tab) 650 mg Q6H PRN PO PAIN AND OR ELEVATED TEMP Last administered on 10/12/16 09:17; Admin Dose 650 MG; Start 10/08/16 at 11:14 Pantoprazole (Protonix Tab) 40 mg BID@06,18 PO Last administered on 10/12/16 06 :01; Admin Dose 40 MG; Start 10/08/16 at 18:00 Acetaminophen/ Hydrocodone Bitart ([place] (5/325)) 1 tab Q4H PRN PO pain Last administered on 10/09/16 17:22; Admin Dose 1 TAB; Start 10/08/16 at 16:00 Lactulose (Enulose) 20 gm QID PO Last administered on 3/3/17at 13:08; Admin Dose 20 GM; Start 10/09/16 at 12:00 Nitroglycerin (Nitroglycerin (Sl Tab) 0.4 Mg) 1 tab Q5M PRN SL ANGINA Last administered on 10/10/16 21:24; Admin Dose 1 TAB; Start 10/10/16 at 21:30 Zolpidem Tartrate (Ambien) 10 mg HS PRN PO INSOMNIA Last administered on 01:48; Admin Dose 10 MG; Start 10/11/16 at 01:42 Magnesium Oxide (Mag-Ox 400) 400 mg BID PO Last administered on 10/12/16 09:17 ; Admin Dose 400 MG; Start 10/11/16 at 12:30 JEOVANNY WATT MD Oct 12, 2016 15:23
[2016-10-12 21:13] VITALS: BP 136/64; RESP 18
[2016-10-12] MEDS: morphine 2 MG INJ IV PRN (23:36)
[2016-10-13] MEDS: HYDROCODONE/APAP (5/325) TAB PO PRN (00:36)
[2016-10-13] MEDS: LORAZEPAM 2 MG INJ IV PRN (02:21)
[2016-10-13 05:32] LABS: ADD SCAN DIFF NO
[2016-10-13] MEDS: morphine 2 MG INJ IV PRN (05:48)
[2016-10-13 05:50] LABS: INR 1.45; PROTIME 17.7 Sec (12.2-14.2); PT RATIO 1.4
[2016-10-13 05:51] LABS: PARTIAL THROMBOPLASTIN TIME 34.7 Sec (25.0-35.0)
[2016-10-13 05:53] LABS: ABNORMAL IP MESSAGE 1; BASOPHILS % 0.6 % (0.0-2.0); EOSINOPHILS # 0.3 10^3/ul (0.0-0.5); EOSINOPHILS % 5.8 % (0.0-7.0); HEMOGLOBIN 10.1 g/dl (14.0-18.0); LYMPHOCYTES # 1.2 10^3/ul (0.8-2.9); LYMPHOCYTES % 23.7 % (15.0-51.0); MEAN CORPUSCULAR HEMOGLOBIN 27.6 pg (29.0-33.0); MEAN CORPUSCULAR HGB CONC 30.6 g/dl (32.0-37.0); MEAN CORPUSCULAR VOLUME 90.2 fl (82.0-101.0); MONOCYTE # 0.7 10^3/ul (0.3-0.9); MONOCYTES % 14.7 % (0.0-11.0); NEUTROPHIL # 2.8 10^3/ul (1.6-7.5); NEUTROPHILS % 54.8 % (39.0-77.0); PLATELET COUNT 64 10^3/UL (140-415); RED BLOOD COUNT 3.66 10^6/ul (4.70-6.10); RED CELL DISTRIBUTION WIDTH 25.1 % (11.5-14.5)
[2016-10-13 06:20] LABS: POTASSIUM 3.5 mmol/L (3.5-5.1)
[2016-10-13 06:22] LABS: CREATININE 0.54 mg/dl (0.61-1.24)
[2016-10-13 06:23] LABS: CALCIUM 8.1 mg/dl (8.4-10.2)
[2016-10-13] MEDS: PANTOPRAZOLE (EC) 40 MG TAB PO SCH ×2 (06:32→17:58)
[2016-10-13 07:10] LABS: PHOSPHORUS 4.6 mg/dl (2.5-4.9)
[2016-10-13 07:11] LABS: MAGNESIUM 1.6 mg/dl (1.7-2.5)
[2016-10-13] MEDS: LACTULOSE 30ML CUP PO SCH ×4 (08:08→20:40)
[2016-10-13] MEDS: ASCORBIC ACID 500 MG TAB PO SCH (08:09)
[2016-10-13] MEDS: FAMOTIDINE 20 MG TAB PO SCH (08:09)
[2016-10-13] MEDS: MAGNESIUM OXIDE 400 MG TAB PO SCH ×2 (08:09→20:40)
[2016-10-13] MEDS: CHLORDIAZEPOXIDE 25 MG CAP PO SCH ×3 (08:09→20:40)
[2016-10-13] MEDS: MULTIVITAMINS 10 ML, THIAMINE 100 MG, FOLIC ACID 1 MG in SOD CHLORIDE 0.9% 1,000 ML IVPB SCH (08:09)
[2016-10-13] MEDS: FERROUS SULFATE (EC) 325 MG TAB PO SCH (08:09)
--- NOTE | 2016-10-13 09:09 | PN ---
Date/Time of Note Date/Time of Note DATE: 10/13/16 TIME: 09:07 Assessment/Plan VTE Prophylaxis VTE Prophylaxis Intervention: SCD's Lines/Catheters IV C[facility]ter Type (from [facility] [place] Urinary Cath still in place: No Assessment/Plan Chief Complaint/Hosp Course Assessment/Plan 1. Rhabdomyolysis. Improving status post IV fluids - monitor 2. History and current alcohol dependency. Patient has been started on banana bag, Librium and Ativan.- pt is still confused with hepatic encephalopathy 3. Transaminitis secondary to #3. 4. Hepatic encephalopathy / altered mental status, ammonia more elevated today ; pt is still confused - increase lactulose dose today, BP stable, on librium also 5. Thrombocytopenia secondary to history of alcoholism. No evidence of acute bleeding at this time. 6. Anemia. Continue iron supplementation, follow up hemoglobin and hematocrit 7. For deep venous thrombosis prophylaxis, on sequential compression devices. 8. Gastrointestinal prophylaxis, on Protonix Problems: Subjective 24 Hr Interval Summary Free Text/Dictation pt still confused. Exam/Review of Systems Vital Signs Vitals Vital Signs Date Time Temp Pulse Resp B/P Pulse Ox O2 Delivery O2 Flow Rate FiO2 10/12/16 21:13 98.5 98 18 136/64 98 10/10/16 20:00 Room Air Intake and Output 10/12/16 10/12/16 10/13/16 15:00 23:00 07:00 Intake Total 2111.2 ml 240 ml Output Total 1000 ml 1000 ml Balance 1111.2 ml -760 ml Exam General: still somewhat confused HEENT: Atraumatic, normocephalic. The pupils are equal and round . Neck: Supple with full range of motion. Chest: Normal expansion of the thorax during inspiration Lungs: Clear to auscultation bilaterally Heart: Normal S1-S2, Regular rhythm and rate. Abdomen: Soft , nontender, nondistended , bowel sounds are present. Extremities: Normal to inspection, no edema no cyanosis Neurologic: Altered , the patient is awake, Results Result Diagram: 10/13/16 0507 10/13/16 0507 Results 24 hrs Laboratory Tests Test 10/13/16 05:07 Activated Partial Thromboplast Time 34.7 Anion Gap 11 Basophils # 0.0 Basophils % 0.6 Blood Urea Nitrogen 7 Calcium Level 8.1 L Carbon Dioxide Level 25 Chloride Level 113 H Creatinine 0.54 L Eosinophils # 0.3 Eosinophils % 5.8 Glucose Level 90 Hematocrit 33.0 L Hemoglobin 10.1 L INR International Normalized Ratio 1.45 Lymphocytes # 1.2 Lymphocytes % 23.7 Magnesium Level 1.6 L Mean Corpuscular Hemoglobin 27.6 L Mean Corpuscular Hemoglobin Concent 30.6 L Mean Corpuscular Volume 90.2 Mean Platelet Volume Monocytes # 0.7 Monocytes % 14.7 H Neutrophils # 2.8 Neutrophils % 54.8 Nucleated Red Blood Cells # 0.0 Nucleated Red Blood Cells % 0.0 Phosphorus Level 4.6 Platelet Count 64 L Potassium Level 3.5 Prothrombin Time 17.7 H Prothrombin Time Ratio 1.4 Red Blood Count 3.66 L Red Cell Distribution Width 25.1 H Sodium Level 145 H White Blood Count 5.0 Medications Medications Current Medications Multivitamins/ Thiamine HCl/ Folic Acid/Sodium Chloride (Mvi-12 Adult/ Vitamin B1/Folic Acid/NS) 1,011.2 ml @ 100 mls/ hr DAILY@09 IVPB Last administered on 10/13/16 08:09; Admin Dose 100 MLS/HR; Start 10/06/16 at 09:00 Ondansetron HCl (Zofran Inj) 4 mg Q6H PRN IV NAUSEA AND/OR VOMITING; Start at 16:30 Morphine Sulfate (morphine) 1 mg Q4H PRN IV SEVERE PAIN LEVEL 7-10 Last administered on 10/13/16 05:48; Admin Dose 1 MG; Start 10/05/16 at 16:30 Chlordiazepoxide (Librium) 25 mg TID PO Last administered on 10/13/16 08:09; Admin Dose 25 MG; Start 10/05/16 at 21:00 Lorazepam (Ativan) 1 mg Q6H PRN IV AGITATION/ANXIETY Last administered on 02:21; Admin Dose 1 MG; Start 10/05/16 at 16:30 Famotidine (Pepcid) 20 mg DAILY PO Last administered on 10/13/16 08:09; Admin Dose 20 MG; Start 10/06/16 at 09:00 Ferrous Sulfate (Ferrous Sulfate (Ec)) 325 mg DAILY PO Last administered on 10/13 08:09; Admin Dose 325 MG; Start 10/07/16 at 12:00 Ascorbic Acid (Vitamin C) 500 mg DAILY PO Last administered on 10/13/16 08:09; Admin Dose 500 MG; Start 10/08/16 at 09:00 Acetaminophen (Tylenol Tab) 650 mg Q6H PRN PO PAIN AND OR ELEVATED TEMP Last administered on 10/12/16 09:17; Admin Dose 650 MG; Start 10/08/16 at 11:14 Pantoprazole (Protonix Tab) 40 mg BID@06,18 PO Last administered on 10/13/16 06 :32; Admin Dose 40 MG; Start 10/08/16 at 18:00 Acetaminophen/ Hydrocodone Bitart ([place] (5/325)) 1 tab Q4H PRN PO pain Last administered on 10/13/16 00:36; Admin Dose 1 TAB; Start 10/08/16 at 16:00 Lactulose (Enulose) 20 gm QID PO Last administered on 10/13/16 08:08; Admin Dose 20 GM; Start 10/09/16 at 12:00 Nitroglycerin (Nitroglycerin (Sl Tab) 0.4 Mg) 1 tab Q5M PRN SL ANGINA Last administered on 10/10/16 21:24; Admin Dose 1 TAB; Start 10/10/16 at 21:30 Zolpidem Tartrate (Ambien) 10 mg HS PRN PO INSOMNIA Last administered on 01:48; Admin Dose 10 MG; Start 10/11/16 at 01:42 Magnesium Oxide 400 mg 400 mg BID PO Last administered on 10/13/16 08:09; Admin Dose 400 MG; Start 10/11/16 at 12:30 Magnesium Sulfate (Magnesium Sulfate 2 Gm/50 ml) 50 ml @ 25 mls/hr ONCE ONCE IVPB ; Start 10/13/16 at 09:30; Stop 10/13/16 at 11:29; Status CHAYO MORENO Oct 13, 2016 09:09
[2016-10-13] MEDS ORDERED: MAGNESIUM SULFATE 2 GM/50 ML 50 ML IVPB ONE (09:30)
[2016-10-13 19:37] VITALS: BP 118/57; RESP 18
[2016-10-14] MEDS: PANTOPRAZOLE (EC) 40 MG TAB PO SCH ×2 (05:57→17:18)
[2016-10-14] MEDS: HYDROCODONE/APAP (5/325) TAB PO PRN (05:57)
[2016-10-14 06:02] LABS: ADD SCAN DIFF NO
[2016-10-14 06:22] LABS: ABNORMAL IP MESSAGE 1; BASOPHILS % 0.7 % (0.0-2.0); EOSINOPHILS # 0.3 10^3/ul (0.0-0.5); EOSINOPHILS % 7.4 % (0.0-7.0); HEMATOCRIT 33.6 % (42.0-52.0); HEMOGLOBIN 10.4 g/dl (14.0-18.0); LYMPHOCYTES # 1.2 10^3/ul (0.8-2.9); LYMPHOCYTES % 27.1 % (15.0-51.0); MEAN CORPUSCULAR HEMOGLOBIN 27.9 pg (29.0-33.0); MEAN CORPUSCULAR VOLUME 90.1 fl (82.0-101.0); MONOCYTE # 0.6 10^3/ul (0.3-0.9); NEUTROPHIL # 2.3 10^3/ul (1.6-7.5); NEUTROPHILS % 50.6 % (39.0-77.0); RED BLOOD COUNT 3.73 10^6/ul (4.70-6.10); RED CELL DISTRIBUTION WIDTH 24.5 % (11.5-14.5); WHITE BLOOD COUNT 4.6 10^3/ul (4.8-10.8)
[2016-10-14 06:56] LABS: PLATELET COUNT 61 10^3/UL (140-415)
[2016-10-14 07:00] LABS: POTASSIUM 3.9 mmol/L (3.5-5.1)
[2016-10-14 07:02] LABS: CREATININE 0.49 mg/dl (0.61-1.24)
[2016-10-14 07:03] LABS: CALCIUM 8.2 mg/dl (8.4-10.2); PHOSPHORUS 4.2 mg/dl (2.5-4.9)
[2016-10-14 07:04] LABS: MAGNESIUM 1.7 mg/dl (1.7-2.5)
[2016-10-14 07:14] VITALS: BP 117/59; RESP 20
[2016-10-14] MEDS: ASCORBIC ACID 500 MG TAB PO SCH (09:56)
[2016-10-14] MEDS: FERROUS SULFATE (EC) 325 MG TAB PO SCH (09:56)
[2016-10-14] MEDS: CHLORDIAZEPOXIDE 25 MG CAP PO SCH ×3 (09:56→20:39)
[2016-10-14] MEDS: FAMOTIDINE 20 MG TAB PO SCH (09:56)
[2016-10-14] MEDS: LACTULOSE 30ML CUP PO SCH ×4 (09:57→20:39)
[2016-10-14] MEDS: MAGNESIUM OXIDE 400 MG TAB PO SCH ×2 (09:58→20:39)
[2016-10-14] MEDS: MULTIVITAMINS 10 ML, THIAMINE 100 MG, FOLIC ACID 1 MG in SOD CHLORIDE 0.9% 1,000 ML IVPB SCH (10:24)
--- NOTE | 2016-10-14 13:02 | PN ---
Date/Time of Note Date/Time of Note DATE: 10/14/16 TIME: 13:02 Assessment/Plan VTE Prophylaxis VTE Prophylaxis Intervention: SCD's Lines/Catheters IV C[facility] Type (from [facility] Peripheral IV Urinary Cath still in place: No Assessment/Plan Chief Complaint/Hosp Course Assessment/Plan 1. Rhabdomyolysis. Improving status post IV fluids - monitor 2. History and current alcohol dependency. Patient has been started on banana bag, Librium and Ativan.- pt is still confused with hepatic encephalopathy 3. Transaminitis secondary to #3. 4. Hepatic encephalopathy / altered mental status, ammonia more elevated today ; pt is still confused - increase lactulose dose today, BP stable, on librium also 5. Thrombocytopenia secondary to history of alcoholism. No evidence of acute bleeding at this time. 6. Anemia. Continue iron supplementation, follow up hemoglobin and hematocrit 7. For deep venous thrombosis prophylaxis, on sequential compression devices. 8. Gastrointestinal prophylaxis, on Protonix Problems: Subjective 24 Hr Interval Summary Free Text/Dictation Pt still agitated at times, but taking his meds. Exam/Review of Systems Vital Signs Vitals Vital Signs Date Time Temp Pulse Resp B/P Pulse Ox O2 Delivery O2 Flow Rate FiO2 10/14/16 07:14 97.8 78 20 117/59 95 10/10/16 20:00 Room Air Intake and Output 10/13/16 10/13/16 10/14/16 15:00 23:00 07:00 Intake Total 50 ml 1600 ml 311.2 ml Output Total 1200 ml Balance 50 ml 400 ml 311.2 ml Exam General: still somewhat confused HEENT: Atraumatic, normocephalic. The pupils are equal and round . Neck: Supple with full range of motion. Chest: Normal expansion of the thorax during inspiration Lungs: Clear to auscultation bilaterally Heart: Normal S1-S2, Regular rhythm and rate. Abdomen: Soft , nontender, nondistended , bowel sounds are present. Extremities: Normal to inspection, no edema no cyanosis Neurologic: Altered , the patient is awake, Results Result Diagram: 10/14/16 0537 10/14/16 0537 Results 24 hrs Laboratory Tests Test 10/14/16 05:37 Anion Gap 12 Basophils # 0.0 Basophils % 0.7 Blood Urea Nitrogen 8 Calcium Level 8.2 L Carbon Dioxide Level 25 Chloride Level 111 H Creatinine 0.49 L Eosinophils # 0.3 Eosinophils % 7.4 H Glucose Level 88 Hematocrit 33.6 L Hemoglobin 10.4 L Lymphocytes # 1.2 Lymphocytes % 27.1 Magnesium Level 1.7 Mean Corpuscular Hemoglobin 27.9 L Mean Corpuscular Hemoglobin Concent 31.0 L Mean Corpuscular Volume 90.1 Mean Platelet Volume Monocytes # 0.6 Monocytes % 14.0 H Neutrophils # 2.3 Neutrophils % 50.6 Nucleated Red Blood Cells # 0.0 Nucleated Red Blood Cells % 0.0 Phosphorus Level 4.2 Platelet Count 61 L Potassium Level 3.9 Red Blood Count 3.73 L Red Cell Distribution Width 24.5 H Sodium Level 144 White Blood Count 4.6 L Medications Medications Current Medications Multivitamins/ Thiamine HCl/ Folic Acid/Sodium Chloride (Mvi-12 Adult/ Vitamin B1/Folic Acid/NS) 1,011.2 ml @ 100 mls/ hr DAILY@09 IVPB Last administered on 10/14/16 10:24; Admin Dose 100 MLS/HR; Start 10/06/16 at 09:00 Ondansetron HCl (Zofran Inj) 4 mg Q6H PRN IV NAUSEA AND/OR VOMITING; Start at 16:30 Morphine Sulfate (morphine) 1 mg Q4H PRN IV SEVERE PAIN LEVEL 7-10 Last administered on 10/13/16 05:48; Admin Dose 1 MG; Start 10/05/16 at 16:30 Chlordiazepoxide (Librium) 25 mg TID PO Last administered on 10/14/16 12:54; Admin Dose 25 MG; Start 10/05/16 at 21:00 Lorazepam (Ativan) 1 mg Q6H PRN IV AGITATION/ANXIETY Last administered on 02:21; Admin Dose 1 MG; Start 10/05/16 at 16:30 Famotidine (Pepcid) 20 mg DAILY PO Last administered on 10/14/16 09:56; Admin Dose 20 MG; Start 10/06/16 at 09:00 Ferrous Sulfate (Ferrous Sulfate (Ec)) 325 mg DAILY PO Last administered on 10/14 09:56; Admin Dose 325 MG; Start 10/07/16 at 12:00 Ascorbic Acid (Vitamin C) 500 mg DAILY PO Last administered on 10/14/16 09:56; Admin Dose 500 MG; Start 10/08/16 at 09:00 Acetaminophen (Tylenol Tab) 650 mg Q6H PRN PO PAIN AND OR ELEVATED TEMP Last administered on 10/12/16 09:17; Admin Dose 650 MG; Start 10/08/16 at 11:14 Pantoprazole (Protonix Tab) 40 mg BID@06,18 PO Last administered on 10/14/16 05 :57; Admin Dose 40 MG; Start 10/08/16 at 18:00 Acetaminophen/ Hydrocodone Bitart ([place] (5/325)) 1 tab Q4H PRN PO pain Last administered on 10/14/16 05:57; Admin Dose 1 TAB; Start 10/08/16 at 16:00 Nitroglycerin (Nitroglycerin (Sl Tab) 0.4 Mg) 1 tab Q5M PRN SL ANGINA Last administered on 10/10/16 21:24; Admin Dose 1 TAB; Start 10/10/16 at 21:30 Zolpidem Tartrate (Ambien) 10 mg HS PRN PO INSOMNIA Last administered on 01:48; Admin Dose 10 MG; Start 10/11/16 at 01:42 Magnesium Oxide (Mag-Ox 400) 400 mg BID PO Last administered on 10/14/16 09:58 ; Admin Dose 400 MG; Start 10/11/16 at 12:30 Lactulose (Enulose) 30 gm QID PO Last administered on 10/14/16 12:54; Admin Dose 30 GM; Start 10/13/16 at 13:00 CHAYO AYALA Oct 14, 2016 13:02
[2016-10-14] MEDS: LORAZEPAM 2 MG INJ IV PRN ×3 (14:20→23:35)
[2016-10-14 20:00] VITALS: BP 115/58; PULSE 86; RESP 20
[2016-10-14] MEDS: morphine 2 MG INJ IV PRN (21:15)
[2016-10-15] MEDS: PANTOPRAZOLE (EC) 40 MG TAB PO SCH ×2 (05:52→18:04)
[2016-10-15] MEDS: LORAZEPAM 2 MG INJ IV PRN ×2 (05:54→09:25)
[2016-10-15 05:59] LABS: ADD SCAN DIFF NO
[2016-10-15 06:07] LABS: ABNORMAL IP MESSAGE 1; BASOPHILS % 0.8 % (0.0-2.0); EOSINOPHILS # 0.3 10^3/ul (0.0-0.5); EOSINOPHILS % 6.5 % (0.0-7.0); HEMATOCRIT 33.8 % (42.0-52.0); HEMOGLOBIN 10.4 g/dl (14.0-18.0); LYMPHOCYTES # 1.1 10^3/ul (0.8-2.9); LYMPHOCYTES % 22.1 % (15.0-51.0); MEAN CORPUSCULAR HEMOGLOBIN 27.8 pg (29.0-33.0); MEAN CORPUSCULAR HGB CONC 30.8 g/dl (32.0-37.0); MEAN CORPUSCULAR VOLUME 90.4 fl (82.0-101.0); MONOCYTE # 0.8 10^3/ul (0.3-0.9); MONOCYTES % 15.7 % (0.0-11.0); NEUTROPHIL # 2.8 10^3/ul (1.6-7.5); NEUTROPHILS % 54.5 % (39.0-77.0); PLATELET COUNT 52 10^3/UL (140-415); RED BLOOD COUNT 3.74 10^6/ul (4.70-6.10); RED CELL DISTRIBUTION WIDTH 24.8 % (11.5-14.5); WHITE BLOOD COUNT 5.1 10^3/ul (4.8-10.8)
[2016-10-15 06:24] LABS: POTASSIUM 3.7 mmol/L (3.5-5.1)
[2016-10-15 06:27] LABS: CALCIUM 8.3 mg/dl (8.4-10.2); CREATININE 0.5 mg/dl (0.61-1.24)
[2016-10-15 07:32] VITALS: BP 130/75; PULSE 82; RESP 19
[2016-10-15] MEDS: ASCORBIC ACID 500 MG TAB PO SCH (09:24)
[2016-10-15] MEDS: LACTULOSE 30ML CUP PO SCH ×4 (09:24→21:05)
[2016-10-15] MEDS: CHLORDIAZEPOXIDE 25 MG CAP PO SCH ×3 (09:24→21:05)
[2016-10-15] MEDS: FERROUS SULFATE (EC) 325 MG TAB PO SCH (09:24)
[2016-10-15] MEDS: FAMOTIDINE 20 MG TAB PO SCH (09:25)
[2016-10-15] MEDS: MAGNESIUM OXIDE 400 MG TAB PO SCH ×2 (09:25→21:05)
[2016-10-15] MEDS: MULTIVITAMINS 10 ML, THIAMINE 100 MG, FOLIC ACID 1 MG in SOD CHLORIDE 0.9% 1,000 ML IVPB SCH (09:30)
--- NOTE | 2016-10-15 11:12 | PN ---
Date/Time of Note Date/Time of Note DATE: 10/15/16 TIME: 11:10 Assessment/Plan VTE Prophylaxis VTE Prophylaxis Intervention: SCD's Lines/Catheters [facility] Type (from [facility] Peripheral IV Urinary Cath still in place: No Assessment/Plan Chief Complaint/Hosp Course ASSESSMENT AND PLAN: 1. Rhabdomyolysis. Resolved status post IV fluids 2. History and current alcohol dependency. Continue banana bag, Librium and Ativan. 3. Transaminitis secondary to #3. 4. Hepatic encephalopathy / altered mental status,, follow-up ammonia level, continue lactulose 5. Thrombocytopenia secondary to history of alcoholism. No evidence of acute bleeding at this time. 6. Anemia. Continue iron supplementation, follow up hemoglobin and hematocrit 7. For deep venous thrombosis prophylaxis, on sequential compression devices. 8. Gastrointestinal prophylaxis, on Protonix We will continue to monitor patient closely. Further recommendations, management and treatment as per clinical course. Problems: Subjective 24 Hr Interval Summary Free Text/Dictation Patient has been requesting Ativan [id number] He continues to have difficulty with ambulation and gait disturbance Tolerating oral intake without any difficulty Exam/Review of Systems Vital Signs Vitals Vital Signs Date Time Temp Pulse Resp B/P Pulse Ox O2 Delivery O2 Flow Rate FiO2 10/15/16 07:32 98.2 82 19 130/75 97 Room Air Intake and Output 10/14/16 10/14/16 10/15/16 15:00 23:00 07:00 Intake Total 1280 ml 1011.2 ml Output Total 850 ml Balance 430 ml 1011.2 ml Exam General: The patient is altered likely secondary to benzodiazepine induced, HEENT: Atraumatic, normocephalic. The pupils are equal and round . Neck: Supple with full range of motion. Chest: Normal expansion of the thorax during inspiration Lungs: Clear to auscultation bilaterally Heart: Normal S1-S2, Regular rhythm and rate. Abdomen: Soft , nontender, nondistended , bowel sounds are present. Extremities: Normal to inspection, no edema no cyanosis Neurologic: The patient is awake, although groggy Results Result Diagram: 10/15/16 0515 10/15/16 0515 Results 24 hrs Laboratory Tests Test 10/14/16 16:10 10/15/16 05:15 Ammonia 39 #H 51 H Anion Gap 14 Basophils # 0.0 Basophils % 0.8 Blood Urea Nitrogen 6 L Calcium Level 8.3 L Carbon Dioxide Level 25 Chloride Level 110 Creatinine 0.50 L Eosinophils # 0.3 Eosinophils % 6.5 Glucose Level 87 Hematocrit 33.8 L Hemoglobin 10.4 L Lymphocytes # 1.1 Lymphocytes % 22.1 Mean Corpuscular Hemoglobin 27.8 L Mean Corpuscular Hemoglobin Concent 30.8 L Mean Corpuscular Volume 90.4 Mean Platelet Volume Monocytes # 0.8 Monocytes % 15.7 H Neutrophils # 2.8 Neutrophils % 54.5 Nucleated Red Blood Cells # 0.0 Nucleated Red Blood Cells % 0.0 Platelet Count 52 L Potassium Level 3.7 Red Blood Count 3.74 L Red Cell Distribution Width 24.8 H Sodium Level 145 H White Blood Count 5.1 Medications Medications Current Medications Multivitamins/ Thiamine HCl/ Folic Acid/Sodium Chloride (Mvi-12 Adult/ Vitamin B1/Folic Acid/NS) 1,011.2 ml @ 100 mls/ hr DAILY@09 IVPB Last administered on 10/15/16 09:30; Admin Dose 100 MLS/HR; Start 10/06/16 at 09:00 Ondansetron HCl (Zofran Inj) 4 mg Q6H PRN IV NAUSEA AND/OR VOMITING; Start at 16:30 Morphine Sulfate (morphine) 1 mg Q4H PRN IV SEVERE PAIN LEVEL 7-10 Last administered on 10/14/16 21:15; Admin Dose 1 MG; Start 10/05/16 at 16:30 Chlordiazepoxide (Librium) 25 mg TID PO Last administered on 10/15/16 09:24; Admin Dose 25 MG; Start 10/05/16 at 21:00 Famotidine (Pepcid) 20 mg DAILY PO Last administered on 10/15/16 09:25; Admin Dose 20 MG; Start 10/06/16 at 09:00 Ferrous Sulfate (Ferrous Sulfate (Ec)) 325 mg DAILY PO Last administered on 10/15 09:24; Admin Dose 325 MG; Start 10/07/16 at 12:00 Ascorbic Acid (Vitamin C) 500 mg DAILY PO Last administered on 10/15/16 09:24; Admin Dose 500 MG; Start 10/08/16 at 09:00 Acetaminophen (Tylenol Tab) 650 mg Q6H PRN PO PAIN AND OR ELEVATED TEMP Last administered on 10/12/16 09:17; Admin Dose 650 MG; Start 10/08/16 at 11:14 Pantoprazole (Protonix Tab) 40 mg BID@06,18 PO Last administered on 10/15/16 05 :52; Admin Dose 40 MG; Start 10/08/16 at 18:00 Acetaminophen/ Hydrocodone Bitart ([place] (5/325)) 1 tab Q4H PRN PO pain Last administered on 10/14/16 05:57; Admin Dose 1 TAB; Start 10/08/16 at 16:00 Nitroglycerin (Nitroglycerin (Sl Tab) 0.4 Mg) 1 tab Q5M PRN SL ANGINA Last administered on 10/10/16 21:24; Admin Dose 1 TAB; Start 10/10/16 at 21:30 Magnesium Oxide (Mag-Ox 400) 400 mg BID PO Last administered on 10/15/16 09:25 ; Admin Dose 400 MG; Start 10/11/16 at 12:30 Lactulose (Enulose) 30 gm QID PO Last administered on 10/15/16 09:24; Admin Dose 30 GM; Start 10/13/16 at 13:00 Lorazepam (Ativan) 1 mg Q8H PRN PO ANXIETY; Start 10/15/16 at 11:30; Status CARL LOTT MD Oct 15, 2016 11:12
[2016-10-15 20:06] VITALS: BP 127/63; RESP 16
[2016-10-16] MEDS: PANTOPRAZOLE (EC) 40 MG TAB PO SCH ×2 (05:58→17:34)
[2016-10-16 06:05] LABS: ADD SCAN DIFF NO
[2016-10-16 06:12] LABS: ABNORMAL IP MESSAGE 1; BASOPHILS % 0.7 % (0.0-2.0); EOSINOPHILS # 0.3 10^3/ul (0.0-0.5); EOSINOPHILS % 7.5 % (0.0-7.0); HEMATOCRIT 34.1 % (42.0-52.0); HEMOGLOBIN 10.7 g/dl (14.0-18.0); LYMPHOCYTES # 1.2 10^3/ul (0.8-2.9); LYMPHOCYTES % 25.3 % (15.0-51.0); MEAN CORPUSCULAR HEMOGLOBIN 28.5 pg (29.0-33.0); MEAN CORPUSCULAR HGB CONC 31.4 g/dl (32.0-37.0); MEAN CORPUSCULAR VOLUME 90.9 fl (82.0-101.0); MONOCYTE # 0.6 10^3/ul (0.3-0.9); MONOCYTES % 12.5 % (0.0-11.0); NEUTROPHIL # 2.5 10^3/ul (1.6-7.5); NEUTROPHILS % 53.8 % (39.0-77.0); PLATELET COUNT 58 10^3/UL (140-415); RED BLOOD COUNT 3.75 10^6/ul (4.70-6.10); RED CELL DISTRIBUTION WIDTH 24.9 % (11.5-14.5); WHITE BLOOD COUNT 4.6 10^3/ul (4.8-10.8)
[2016-10-16 06:43] LABS: POTASSIUM 3.8 mmol/L (3.5-5.1)
[2016-10-16 06:46] LABS: CREATININE 0.48 mg/dl (0.61-1.24)
[2016-10-16 06:47] LABS: CALCIUM 8.4 mg/dl (8.4-10.2)
[2016-10-16 07:28] VITALS: BP 115/55; RESP 18
[2016-10-16] MEDS: MULTIVITAMINS 10 ML, THIAMINE 100 MG, FOLIC ACID 1 MG in SOD CHLORIDE 0.9% 1,000 ML IVPB SCH (09:08)
[2016-10-16] MEDS: CHLORDIAZEPOXIDE 25 MG CAP PO SCH ×3 (09:09→22:32)
[2016-10-16] MEDS: FAMOTIDINE 20 MG TAB PO SCH (09:09)
[2016-10-16] MEDS: ASCORBIC ACID 500 MG TAB PO SCH (09:09)
[2016-10-16] MEDS: MAGNESIUM OXIDE 400 MG TAB PO SCH ×2 (09:09→21:49)
[2016-10-16] MEDS: FERROUS SULFATE (EC) 325 MG TAB PO SCH (09:09)
[2016-10-16] MEDS: LACTULOSE 30ML CUP PO SCH ×4 (09:09→21:49)
[2016-10-16] MEDS: LORAZEPAM 1 MG TAB PO PRN (12:10)
--- NOTE | 2016-10-16 14:15 | PN ---
Date/Time of Note Date/Time of Note DATE: 10/16/16 TIME: 14:12 Assessment/Plan VTE Prophylaxis VTE Prophylaxis Intervention: SCD's Lines/Catheters [facility] Type (from [facility]): Peripheral IV Urinary Cath still in place: No Assessment/Plan Chief Complaint/Hosp Course ASSESSMENT AND PLAN: 1. Rhabdomyolysis. Resolved status post IV fluids 2. History and current alcohol dependency. Continue banana bag, Librium and Ativan. 3. Transaminitis secondary to #3. 4. Hepatic encephalopathy / altered mental status,, follow-up ammonia level, continue lactulose 5. Thrombocytopenia secondary to history of alcoholism. No evidence of acute bleeding at this time. 6. Anemia. Continue iron supplementation, follow up hemoglobin and hematocrit 7. For deep venous thrombosis prophylaxis, on sequential compression devices. 8. Gastrointestinal prophylaxis, on Protonix We will continue to monitor patient closely. Further recommendations, management and treatment as per clinical course. Problems: Subjective 24 Hr Interval Summary Free Text/Dictation Patient continues to be confused and altered N.p.o. Exam/Review of Systems Vital Signs Vitals Vital Signs Date Time Temp Pulse Resp B/P Pulse Ox O2 Delivery O2 Flow Rate FiO2 10/16/16 07:28 98.6 69 18 115/55 95 10/15/16 07:32 Room Air Intake and Output 10/15/16 10/15/16 10/16/16 15:00 23:00 07:00 Intake Total 1000 ml 111.2 ml Output Total 250 ml Balance 1000 ml -138.8 ml Exam General: The patient is well-developed, altered HEENT: Conjunctivitis icteric, normocephalic. The pupils are equal and round . Neck: Supple with full range of motion. Chest: Normal expansion of the thorax during inspiration Lungs: Clear to auscultation bilaterally Heart: Normal S1-S2, Regular rhythm and rate. Abdomen: Soft , nontender, nondistended , bowel sounds are present. Extremities: Normal to inspection, no edema no cyanosis Neurologic: ,The patient is awake, Results Result Diagram: 10/16/16 0540 10/16/16 0540 Results 24 hrs Laboratory Tests Test 10/16/16 05:40 Ammonia 53 H Anion Gap 12 Basophils # 0.0 Basophils % 0.7 Blood Urea Nitrogen 7 Calcium Level 8.4 Carbon Dioxide Level 25 Chloride Level 111 H Creatinine 0.48 L Eosinophils # 0.3 Eosinophils % 7.5 H Glucose Level 84 Hematocrit 34.1 L Hemoglobin 10.7 L Lymphocytes # 1.2 Lymphocytes % 25.3 Mean Corpuscular Hemoglobin 28.5 L Mean Corpuscular Hemoglobin Concent 31.4 L Mean Corpuscular Volume 90.9 Mean Platelet Volume Monocytes # 0.6 Monocytes % 12.5 H Neutrophils # 2.5 Neutrophils % 53.8 Nucleated Red Blood Cells # 0.0 Nucleated Red Blood Cells % 0.0 Platelet Count 58 L Potassium Level 3.8 Red Blood Count 3.75 L Red Cell Distribution Width 24.9 H Sodium Level 144 White Blood Count 4.6 L Medications Medications Current Medications Multivitamins/ Thiamine HCl/ Folic Acid/Sodium Chloride (Mvi-12 Adult/ Vitamin B1/Folic Acid/NS) 1,011.2 ml @ 100 mls/ hr DAILY@09 IVPB Last administered on 10/16/16 09:08; Admin Dose 100 MLS/HR; Start 10/06/16 at 09:00 Ondansetron HCl (Zofran Inj) 4 mg Q6H PRN IV NAUSEA AND/OR VOMITING; Start at 16:30 Morphine Sulfate (morphine) 1 mg Q4H PRN IV SEVERE PAIN LEVEL 7-10 Last administered on 10/14/16 21:15; Admin Dose 1 MG; Start 10/05/16 at 16:30 Chlordiazepoxide (Librium) 25 mg TID PO Last administered on 10/16/16 12:10; Admin Dose 25 MG; Start 10/05/16 at 21:00 Famotidine (Pepcid) 20 mg DAILY PO Last administered on 10/16/16 09:09; Admin Dose 20 MG; Start 10/06/16 at 09:00 Ferrous Sulfate (Ferrous Sulfate (Ec)) 325 mg DAILY PO Last administered on 10/16 09:09; Admin Dose 325 MG; Start 10/07/16 at 12:00 Ascorbic Acid (Vitamin C) 500 mg DAILY PO Last administered on 10/16/16 09:09; Admin Dose 500 MG; Start 10/08/16 at 09:00 Acetaminophen (Tylenol Tab) 650 mg Q6H PRN PO PAIN AND OR ELEVATED TEMP Last administered on 10/12/16 09:17; Admin Dose 650 MG; Start 10/08/16 at 11:14 Pantoprazole (Protonix Tab) 40 mg BID@06,18 PO Last administered on 10/16/16 05 :58; Admin Dose 40 MG; Start 10/08/16 at 18:00 Acetaminophen/ Hydrocodone Bitart ([place] (5/325)) 1 tab Q4H PRN PO pain Last administered on 10/14/16 05:57; Admin Dose 1 TAB; Start 10/08/16 at 16:00 Nitroglycerin (Nitroglycerin (Sl Tab) 0.4 Mg) 1 tab Q5M PRN SL ANGINA Last administered on 10/10/16 21:24; Admin Dose 1 TAB; Start 10/10/16 at 21:30 Magnesium Oxide (Mag-Ox 400) 400 mg BID PO Last administered on 10/16/16 09:09 ; Admin Dose 400 MG; Start 10/11/16 at 12:30 Lactulose (Enulose) 30 gm QID PO Last administered on 10/16/16 09:09; Admin Dose 30 GM; Start 10/13/16 at 13:00 Lorazepam (Ativan) 1 mg Q8H PRN PO ANXIETY Last administered on 10/16/16 12:10 ; Admin Dose 1 MG; Start 10/15/16 at 11:30 CARL PIERRE MD Oct 16, 2016 14:15
[2016-10-16 19:22] VITALS: BP 129/63; RESP 18
[2016-10-16] MEDS: LORAZEPAM 2 MG INJ IV PRN (21:50)
[2016-10-17] MEDS: LORAZEPAM 2 MG INJ IV PRN (03:57)
[2016-10-17] MEDS: PANTOPRAZOLE (EC) 40 MG TAB PO SCH ×2 (05:55→16:51)
[2016-10-17 06:11] LABS: ADD SCAN DIFF NO
[2016-10-17 06:30] LABS: POTASSIUM 3.7 mmol/L (3.5-5.1)
[2016-10-17 06:32] LABS: CREATININE 0.5 mg/dl (0.61-1.24)
[2016-10-17 06:33] LABS: CALCIUM 8.3 mg/dl (8.4-10.2)
[2016-10-17 06:36] LABS: ABNORMAL IP MESSAGE 1; BASOPHIL # 0.1 10^3/ul (0.0-0.1); EOSINOPHILS # 0.3 10^3/ul (0.0-0.5); EOSINOPHILS % 5.2 % (0.0-7.0); HEMATOCRIT 35.3 % (42.0-52.0); HEMOGLOBIN 10.8 g/dl (14.0-18.0); LYMPHOCYTES # 1.2 10^3/ul (0.8-2.9); LYMPHOCYTES % 22.4 % (15.0-51.0); MEAN CORPUSCULAR HEMOGLOBIN 27.7 pg (29.0-33.0); MEAN CORPUSCULAR HGB CONC 30.6 g/dl (32.0-37.0); MEAN CORPUSCULAR VOLUME 90.5 fl (82.0-101.0); MONOCYTE # 0.6 10^3/ul (0.3-0.9); MONOCYTES % 11.8 % (0.0-11.0); NEUTROPHIL # 3.1 10^3/ul (1.6-7.5); NEUTROPHILS % 59.4 % (39.0-77.0); PLATELET COUNT 67 10^3/UL (140-415); RED CELL DISTRIBUTION WIDTH 24.7 % (11.5-14.5); WHITE BLOOD COUNT 5.2 10^3/ul (4.8-10.8)
[2016-10-17 07:49] VITALS: BP 119/58; RESP 16
[2016-10-17] MEDS: LACTULOSE 30ML CUP PO SCH ×4 (08:03→20:25)
[2016-10-17] MEDS: FERROUS SULFATE (EC) 325 MG TAB PO SCH (08:03)
[2016-10-17] MEDS: CHLORDIAZEPOXIDE 25 MG CAP PO SCH ×3 (08:03→20:25)
[2016-10-17] MEDS: ASCORBIC ACID 500 MG TAB PO SCH (08:03)
[2016-10-17] MEDS: MAGNESIUM OXIDE 400 MG TAB PO SCH ×2 (08:03→20:25)
[2016-10-17] MEDS: MULTIVITAMINS 10 ML, THIAMINE 100 MG, FOLIC ACID 1 MG in SOD CHLORIDE 0.9% 1,000 ML IVPB SCH (08:03)
[2016-10-17] MEDS: FAMOTIDINE 20 MG TAB PO SCH (08:03)
--- NOTE | 2016-10-17 16:10 | PN ---
Date/Time of Note Date/Time of Note DATE: 10/17/16 TIME: 16:08 Assessment/Plan VTE Prophylaxis VTE Prophylaxis Intervention: SCD's Lines/Catheters IV Catheter Type (from [facility]): Peripheral IV Urinary Cath still in place: No Assessment/Plan Chief Complaint/Hosp Course ASSESSMENT AND PLAN: 1. Rhabdomyolysis. Resolved status post IV fluids 2. History and current alcohol dependency. Continue banana bag, Librium and Ativan. 3. Transaminitis secondary to #3. 4. Hepatic encephalopathy / altered mental status,, follow-up ammonia level, continue lactulose 5. Thrombocytopenia secondary to history of alcoholism. No evidence of acute bleeding at this time. 6. Anemia. Continue iron supplementation, follow up hemoglobin and hematocrit 7. For deep venous thrombosis prophylaxis, on sequential compression devices. 8. Gastrointestinal prophylaxis, on Protonix We will continue to monitor patient closely. Further recommendations, management and treatment as per clinical course. Problems: Subjective 24 Hr Interval Summary Free Text/Dictation Patient had trouble sleeping yesterday evening No nausea vomiting diarrhea No abdominal pain Was able to ambulate with a walker and minimal assistance today Exam/Review of Systems Vital Signs Vitals Vital Signs Date Time Temp Pulse Resp B/P Pulse Ox O2 Delivery O2 Flow Rate FiO2 10/17/16 07:49 98.3 76 16 119/58 97 10/15/16 07:32 Room Air Intake and Output 10/16/16 10/16/16 10/17/16 15:00 23:00 07:00 Intake Total 1411.2 ml 240 ml Output Total 1000 ml 800 ml Balance 411.2 ml -560 ml Exam General: The patient is groggy and sleepy, Not in acute distress. HEENT: Conjunctivae is icteric, normocephalic. The pupils are equal and round . Neck: Supple with full range of motion. Chest: Normal expansion of the thorax during inspiration Lungs: Clear to auscultation bilaterally Heart: Normal S1-S2, Regular rhythm and rate. Abdomen: Soft , nontender, nondistended , bowel sounds are present. Extremities: Normal to inspection, no edema no cyanosis Neurologic: Improvement in mental status,The patient is awake, alert Results Result Diagram: 10/17/16 0525 10/17/16 0525 Results 24 hrs Laboratory Tests Test 10/17/16 05:25 Ammonia 68 H Anion Gap 12 Basophils # 0.1 Basophils % 1.0 Blood Urea Nitrogen 7 Calcium Level 8.3 L Carbon Dioxide Level 26 Chloride Level 111 H Creatinine 0.50 L Eosinophils # 0.3 Eosinophils % 5.2 Glucose Level 84 Hematocrit 35.3 L Hemoglobin 10.8 L Lymphocytes # 1.2 Lymphocytes % 22.4 Mean Corpuscular Hemoglobin 27.7 L Mean Corpuscular Hemoglobin Concent 30.6 L Mean Corpuscular Volume 90.5 Mean Platelet Volume Monocytes # 0.6 Monocytes % 11.8 H Neutrophils # 3.1 Neutrophils % 59.4 Nucleated Red Blood Cells # 0.0 Nucleated Red Blood Cells % 0.0 Platelet Count 67 L Potassium Level 3.7 Red Blood Count 3.90 L Red Cell Distribution Width 24.7 H Sodium Level 145 H White Blood Count 5.2 Medications Medications Current Medications Multivitamins/ Thiamine HCl/ Folic Acid/Sodium Chloride (Mvi-12 Adult/ Vitamin B1/Folic Acid/NS) 1,011.2 ml @ 100 mls/ hr DAILY@09 IVPB Last administered on 10/17/16 08:03; Admin Dose 100 MLS/HR; Start 10/06/16 at 09:00 Ondansetron HCl (Zofran Inj) 4 mg Q6H PRN IV NAUSEA AND/OR VOMITING Last administered on 10/16/16 22:32; Admin Dose 4 MG; Start 10/05/16 at 16:30 Morphine Sulfate (morphine) 1 mg Q4H PRN IV SEVERE PAIN LEVEL 7-10 Last administered on 10/14/16 21:15; Admin Dose 1 MG; Start 10/05/16 at 16:30 Chlordiazepoxide (Librium) 25 mg TID PO Last administered on 10/17/16 13:41; Admin Dose 25 MG; Start 10/05/16 at 21:00 Famotidine (Pepcid) 20 mg DAILY PO Last administered on 10/17/16 08:03; Admin Dose 20 MG; Start 10/06/16 at 09:00 Ferrous Sulfate (Ferrous Sulfate (Ec)) 325 mg DAILY PO Last administered on 10/17 08:03; Admin Dose 325 MG; Start 10/07/16 at 12:00 Ascorbic Acid (Vitamin C) 500 mg DAILY PO Last administered on 10/17/16 08:03; Admin Dose 500 MG; Start 10/08/16 at 09:00 Acetaminophen (Tylenol Tab) 650 mg Q6H PRN PO PAIN AND OR ELEVATED TEMP Last administered on 10/12/16 09:17; Admin Dose 650 MG; Start 10/08/16 at 11:14 Pantoprazole (Protonix Tab) 40 mg BID@06,18 PO Last administered on 10/17/16 05 :55; Admin Dose 40 MG; Start 10/08/16 at 18:00 Acetaminophen/ Hydrocodone Bitart ([place] (5/325)) 1 tab Q4H PRN PO pain Last administered on 10/14/16 05:57; Admin Dose 1 TAB; Start 10/08/16 at 16:00 Nitroglycerin (Nitroglycerin (Sl Tab) 0.4 Mg) 1 tab Q5M PRN SL ANGINA Last administered on 10/10/16 21:24; Admin Dose 1 TAB; Start 10/10/16 at 21:30 Magnesium Oxide (Mag-Ox 400) 400 mg BID PO Last administered on 10/17/16 08:03 ; Admin Dose 400 MG; Start 10/11/16 at 12:30 Lactulose (Enulose) 30 gm QID PO Last administered on 10/17/16 13:41; Admin Dose 30 GM; Start 10/13/16 at 13:00 Lorazepam (Ativan) 1 mg Q8H PRN PO ANXIETY Last administered on 10/16/16 12:10 ; Admin Dose 1 MG; Start 10/15/16 at 11:30 Lorazepam (Ativan) 1 mg Q6H PRN IV AGITATION/ANXIETY Last administered on 03:57; Admin Dose 1 MG; Start 10/16/16 at 21:00 CARL PIERRE MD Oct 17, 2016 16:10
[2016-10-17 20:12] VITALS: BP 136/73; RESP 18
[2016-10-18] MEDS: LORAZEPAM 2 MG INJ IV PRN (02:37)
[2016-10-18 05:38] LABS: ADD SCAN DIFF NO
[2016-10-18 05:45] LABS: ABNORMAL IP MESSAGE 1; BASOPHIL # 0.1 10^3/ul (0.0-0.1); BASOPHILS % 0.8 % (0.0-2.0); EOSINOPHILS # 0.4 10^3/ul (0.0-0.5); EOSINOPHILS % 5.9 % (0.0-7.0); HEMATOCRIT 37.7 % (42.0-52.0); HEMOGLOBIN 11.9 g/dl (14.0-18.0); LYMPHOCYTES # 1.6 10^3/ul (0.8-2.9); LYMPHOCYTES % 27.3 % (15.0-51.0); MEAN CORPUSCULAR HEMOGLOBIN 28.7 pg (29.0-33.0); MEAN CORPUSCULAR HGB CONC 31.6 g/dl (32.0-37.0); MEAN CORPUSCULAR VOLUME 91.1 fl (82.0-101.0); MONOCYTE # 0.6 10^3/ul (0.3-0.9); MONOCYTES % 10.2 % (0.0-11.0); NEUTROPHIL # 3.3 10^3/ul (1.6-7.5); NEUTROPHILS % 55.6 % (39.0-77.0); RED BLOOD COUNT 4.14 10^6/ul (4.70-6.10); RED CELL DISTRIBUTION WIDTH 24.6 % (11.5-14.5)
[2016-10-18 05:54] LABS: PLATELET COUNT 83 10^3/UL (140-415)
[2016-10-18 06:04] LABS: POTASSIUM 4.1 mmol/L (3.5-5.1)
[2016-10-18 06:06] LABS: CREATININE 0.51 mg/dl (0.61-1.24)
[2016-10-18 06:07] LABS: CALCIUM 8.7 mg/dl (8.4-10.2)
[2016-10-18] MEDS: PANTOPRAZOLE (EC) 40 MG TAB PO SCH ×2 (06:08→17:19)
[2016-10-18 07:57] VITALS: BP 117/56; RESP 20
[2016-10-18] MEDS: ASCORBIC ACID 500 MG TAB PO SCH (08:53)
[2016-10-18] MEDS: FERROUS SULFATE (EC) 325 MG TAB PO SCH (08:53)
[2016-10-18] MEDS: CHLORDIAZEPOXIDE 25 MG CAP PO SCH ×3 (08:53→20:46)
[2016-10-18] MEDS: LACTULOSE 30ML CUP PO SCH ×4 (08:53→20:46)
[2016-10-18] MEDS: FAMOTIDINE 20 MG TAB PO SCH (08:53)
[2016-10-18] MEDS: MAGNESIUM OXIDE 400 MG TAB PO SCH ×2 (08:53→20:46)
[2016-10-18] MEDS: MULTIVITAMINS 10 ML, THIAMINE 100 MG, FOLIC ACID 1 MG in SOD CHLORIDE 0.9% 1,000 ML IVPB SCH (08:54)
--- NOTE | 2016-10-18 15:24 | PN ---
Date/Time of Note Date/Time of Note DATE: 10/18/16 TIME: 15:22 Assessment/Plan VTE Prophylaxis VTE Prophylaxis Intervention: SCD's Lines/Catheters IV [facility]from [facility] Saline Lock Urinary Cath still in place: No Assessment/Plan Chief Complaint/Hosp Course ASSESSMENT AND PLAN: 1. Rhabdomyolysis. Resolved status post IV fluids 2. History and current alcohol dependency. Continue banana bag, Librium and Ativan. 3. Transaminitis secondary to #3. 4. Hepatic encephalopathy / altered mental status,, follow-up ammonia level, continue lactulose 5. Thrombocytopenia secondary to history of alcoholism. No evidence of acute bleeding at this time. 6. Anemia. Continue iron supplementation, follow up hemoglobin and hematocrit 7. For deep venous thrombosis prophylaxis, on sequential compression devices. 8. Gastrointestinal prophylaxis, on Protonix We will continue to monitor patient closely. Further recommendations, management and treatment as per clinical course. Problems: Subjective 24 Hr Interval Summary Free Text/Dictation Patient continues to have episodes of altered mental status and encephalopathy Ambulating without any discomfort Tolerating oral intake Exam/Review of Systems Vital Signs Vitals Vital Signs Date Time Temp Pulse Resp B/P Pulse Ox O2 Delivery O2 Flow Rate FiO2 10/18/16 07:57 97.7 81 20 117/56 99 10/15/16 07:32 Room Air Intake and Output 10/17/16 10/17/16 10/18/16 15:00 23:00 07:00 Intake Total 2691.2 ml Output Total 1300 ml Balance 1391.2 ml Exam General: The patient is well-developed, Not in acute distress. HEENT: Atraumatic, normocephalic. The pupils are equal and round . Neck: Supple with full range of motion. Chest: Normal expansion of the thorax during inspiration Lungs: Clear to auscultation bilaterally Heart: Normal S1-S2, Regular rhythm and rate. Abdomen: Soft , nontender, nondistended , bowel sounds are present. Extremities: Normal to inspection, no edema no cyanosis Neurologic: ,The patient is awake, alert Results Result Diagram: 10/18/16 0510 10/18/16 0510 Results 24 hrs Laboratory Tests Test 10/18/16 05:10 Ammonia 60 H Anion Gap 16 Basophils # 0.1 Basophils % 0.8 Blood Urea Nitrogen 6 L Calcium Level 8.7 Carbon Dioxide Level 24 Chloride Level 109 Creatinine 0.51 L Eosinophils # 0.4 Eosinophils % 5.9 Glucose Level 90 Hematocrit 37.7 L Hemoglobin 11.9 L Lymphocytes # 1.6 Lymphocytes % 27.3 Mean Corpuscular Hemoglobin 28.7 L Mean Corpuscular Hemoglobin Concent 31.6 L Mean Corpuscular Volume 91.1 Mean Platelet Volume Monocytes # 0.6 Monocytes % 10.2 Neutrophils # 3.3 Neutrophils % 55.6 Nucleated Red Blood Cells # 0.0 Nucleated Red Blood Cells % 0.0 Platelet Count 83 #L Potassium Level 4.1 Red Blood Count 4.14 L Red Cell Distribution Width 24.6 H Sodium Level 145 H White Blood Count 6.0 Medications Medications Current Medications Multivitamins/ Thiamine HCl/ Folic Acid/Sodium Chloride (Mvi-12 Adult/ Vitamin B1/Folic Acid/NS) 1,011.2 ml @ 100 mls/ hr DAILY@09 IVPB Last administered on 10/18/16 08:54; Admin Dose 100 MLS/HR; Start 10/06/16 at 09:00 Ondansetron HCl (Zofran Inj) 4 mg Q6H PRN IV NAUSEA AND/OR VOMITING Last administered on 10/16/16 22:32; Admin Dose 4 MG; Start 10/05/16 at 16:30 Morphine Sulfate (morphine) 1 mg Q4H PRN IV SEVERE PAIN LEVEL 7-10 Last administered on 10/14/16 21:15; Admin Dose 1 MG; Start 10/05/16 at 16:30 Chlordiazepoxide (Librium) 25 mg TID PO Last administered on 10/18/16 12:25; Admin Dose 25 MG; Start 10/05/16 at 21:00 Famotidine (Pepcid) 20 mg DAILY PO Last administered on 10/18/16 08:53; Admin Dose 20 MG; Start 10/06/16 at 09:00 Ferrous Sulfate (Ferrous Sulfate (Ec)) 325 mg DAILY PO Last administered on 10/18 08:53; Admin Dose 325 MG; Start 10/07/16 at 12:00 Ascorbic Acid (Vitamin C) 500 mg DAILY PO Last administered on 10/18/16 08:53; Admin Dose 500 MG; Start 10/08/16 at 09:00 Acetaminophen (Tylenol Tab) 650 mg Q6H PRN PO PAIN AND OR ELEVATED TEMP Last administered on 10/12/16 09:17; Admin Dose 650 MG; Start 10/08/16 at 11:14 Pantoprazole (Protonix Tab) 40 mg BID@06,18 PO Last administered on 10/18/16 06 :08; Admin Dose 40 MG; Start 10/08/16 at 18:00 Acetaminophen/ Hydrocodone Bitart ([place] (5/325)) 1 tab Q4H PRN PO pain Last administered on 10/14/16 05:57; Admin Dose 1 TAB; Start 10/08/16 at 16:00 Nitroglycerin (Nitroglycerin (Sl Tab) 0.4 Mg) 1 tab Q5M PRN SL ANGINA Last administered on 10/10/16 21:24; Admin Dose 1 TAB; Start 10/10/16 at 21:30 Magnesium Oxide (Mag-Ox 400) 400 mg BID PO Last administered on 10/18/16 08:53 ; Admin Dose 400 MG; Start 10/11/16 at 12:30 Lactulose (Enulose) 30 gm QID PO Last administered on 10/18/16 12:25; Admin Dose 30 GM; Start 10/13/16 at 13:00 Lorazepam (Ativan) 1 mg Q8H PRN PO ANXIETY Last administered on 10/16/16 12:10 ; Admin Dose 1 MG; Start 10/15/16 at 11:30 Lorazepam (Ativan) 1 mg Q6H PRN IV AGITATION/ANXIETY Last administered on 02:37; Admin Dose 1 MG; Start 10/16/16 at 21:00 CARL PIERRE MD Oct 18, 2016 15:23
[2016-10-18] MEDS: LORAZEPAM 1 MG TAB PO PRN (17:56)
[2016-10-18 19:43] VITALS: BP 131/60; RESP 20
[2016-10-19] MEDS: PANTOPRAZOLE (EC) 40 MG TAB PO SCH ×2 (05:19→17:31)
[2016-10-19 07:26] VITALS: BP 114/56; RESP 16
[2016-10-19] MEDS: FERROUS SULFATE (EC) 325 MG TAB PO SCH (08:56)
[2016-10-19] MEDS: FAMOTIDINE 20 MG TAB PO SCH (08:56)
[2016-10-19] MEDS: ASCORBIC ACID 500 MG TAB PO SCH (08:56)
[2016-10-19] MEDS: CHLORDIAZEPOXIDE 25 MG CAP PO SCH ×3 (08:56→21:45)
[2016-10-19] MEDS: MAGNESIUM OXIDE 400 MG TAB PO SCH ×2 (08:56→21:45)
[2016-10-19] MEDS: LACTULOSE 30ML CUP PO SCH ×4 (08:56→21:46)
[2016-10-19] MEDS: HYDROCODONE/APAP (5/325) TAB PO PRN (08:56)
[2016-10-19] MEDS: MULTIVITAMINS 10 ML, THIAMINE 100 MG, FOLIC ACID 1 MG in SOD CHLORIDE 0.9% 1,000 ML IVPB SCH (08:56)
--- NOTE | 2016-10-19 14:16 | PN ---
Date/Time of Note Date/Time of Note DATE: 10/19/16 TIME: 14:15 Assessment/Plan VTE Prophylaxis VTE Prophylaxis Intervention: SCD's Lines/Catheters [facility] Saline Lock Urinary Cath still in place: No Assessment/Plan Chief Complaint/Hosp Course ASSESSMENT AND PLAN: 1. Rhabdomyolysis. Resolved status post IV fluids 2. History and current alcohol dependency. Continue banana bag, Librium and Ativan. 3. Transaminitis secondary to #3. 4. Hepatic encephalopathy / altered mental status,, follow-up ammonia level, continue lactulose 5. Thrombocytopenia secondary to history of alcoholism. No evidence of acute bleeding at this time. 6. Anemia. Continue iron supplementation, follow up hemoglobin and hematocrit 7. For deep venous thrombosis prophylaxis, on sequential compression devices. 8. Gastrointestinal prophylaxis, on Protonix We will continue to monitor patient closely. Further recommendations, management and treatment as per clinical course. Problems: Subjective 24 Hr Interval Summary Free Text/Dictation Patient is more awake alert and oriented He is tolerating oral intake Ambulating without any difficulty although has mild gait disturbance Exam/Review of Systems Vital Signs Vitals Vital Signs Date Time Temp Pulse Resp B/P Pulse Ox O2 Delivery O2 Flow Rate FiO2 10/19/16 07:26 97.9 74 16 114/56 99 10/15/16 07:32 Room Air Intake and Output 10/18/16 10/18/16 10/19/16 15:00 23:00 07:00 Intake Total 1140 ml 1631.2 ml Output Total 400 ml 1700 ml Balance 740 ml -68.8 ml Exam General: The patient is well-developed, Not in acute distress. HEENT: Atraumatic, normocephalic. The pupils are equal and round . Neck: Supple with full range of motion. Chest: Normal expansion of the thorax during inspiration Lungs: Clear to auscultation bilaterally Heart: Normal S1-S2, Regular rhythm and rate. Abdomen: Soft , nontender, nondistended , bowel sounds are present. Extremities: Normal to inspection, no edema no cyanosis Neurologic: Normal mental status,The patient is awake, alert and oriented . Results Result Diagram: 10/18/16 0510 10/18/16 0510 Medications Medications Current Medications Multivitamins/ Thiamine HCl/ Folic Acid/Sodium Chloride (Mvi-12 Adult/ Vitamin B1/Folic Acid/NS) 1,011.2 ml @ 100 mls/ hr DAILY@09 IVPB Last administered on 10/19/16 08:56; Admin Dose 100 MLS/HR; Start 10/06/16 at 09:00 Ondansetron HCl (Zofran Inj) 4 mg Q6H PRN IV NAUSEA AND/OR VOMITING Last administered on 10/16/16 22:32; Admin Dose 4 MG; Start 10/05/16 at 16:30 Morphine Sulfate (morphine) 1 mg Q4H PRN IV SEVERE PAIN LEVEL 7-10 Last administered on 10/14/16 21:15; Admin Dose 1 MG; Start 10/05/16 at 16:30 Chlordiazepoxide (Librium) 25 mg TID PO Last administered on 10/19/16 12:19; Admin Dose 25 MG; Start 10/05/16 at 21:00 Famotidine (Pepcid) 20 mg DAILY PO Last administered on 10/19/16 08:56; Admin Dose 20 MG; Start 10/06/16 at 09:00 Ferrous Sulfate (Ferrous Sulfate (Ec)) 325 mg DAILY PO Last administered on 08:56; Admin Dose 325 MG; Start 10/07/16 at 12:00 Ascorbic Acid (Vitamin C) 500 mg DAILY PO Last administered on 10/19/16 08:56 ; Admin Dose 500 MG; Start 10/08/16 at 09:00 Acetaminophen (Tylenol Tab) 650 mg Q6H PRN PO PAIN AND OR ELEVATED TEMP Last administered on 10/12/16 09:17; Admin Dose 650 MG; Start 10/08/16 at 11:14 Pantoprazole (Protonix Tab) 40 mg BID@06,18 PO Last administered on 10/19/16 05:19; Admin Dose 40 MG; Start 10/08/16 at 18:00 Acetaminophen/ Hydrocodone Bitart ([place] (5/325)) 1 tab Q4H PRN PO pain Last administered on 10/19/16 08:56; Admin Dose 1 TAB; Start 10/08/16 at 16:00 Nitroglycerin (Nitroglycerin (Sl Tab) 0.4 Mg) 1 tab Q5M PRN SL ANGINA Last administered on 10/10/16 21:24; Admin Dose 1 TAB; Start 10/10/16 at 21:30 Magnesium Oxide (Mag-Ox 400) 400 mg BID PO Last administered on 10/19/16 08:56 ; Admin Dose 400 MG; Start 10/11/16 at 12:30 Lactulose (Enulose) 30 gm QID PO Last administered on 10/19/16 12:19; Admin Dose 30 GM; Start 10/13/16 at 13:00 Lorazepam (Ativan) 1 mg Q8H PRN PO ANXIETY Last administered on 10/18/16 17:56 ; Admin Dose 1 MG; Start 10/15/16 at 11:30 Lorazepam (Ativan) 1 mg Q6H PRN IV AGITATION/ANXIETY Last administered on 02:37; Admin Dose 1 MG; Start 10/16/16 at 21:00 CARL PIERRE MD Oct 19, 2016 14:16
[2016-10-19] MEDS ORDERED: MULTIVITAMINS IVPB SCH (15:08)
[2016-10-19] MEDS ORDERED: DEXTROSE 5% IVPB SCH (15:08)
[2016-10-19] MEDS ORDERED: THIAMINE IVPB SCH (15:08)
[2016-10-19] MEDS ORDERED: FOLIC ACID IVPB SCH (15:08)
[2016-10-19 19:27] VITALS: BP 123/65; RESP 18
[2016-10-20] MEDS: PANTOPRAZOLE (EC) 40 MG TAB PO SCH ×2 (07:12→17:18)
[2016-10-20 08:05] VITALS: BP 129/63; RESP 18
[2016-10-20] MEDS: LACTULOSE 30ML CUP PO SCH ×4 (08:23→22:38)
[2016-10-20] MEDS: FAMOTIDINE 20 MG TAB PO SCH (08:23)
[2016-10-20] MEDS: FERROUS SULFATE (EC) 325 MG TAB PO SCH (08:23)
[2016-10-20] MEDS: MAGNESIUM OXIDE 400 MG TAB PO SCH ×2 (08:23→22:38)
[2016-10-20] MEDS: ASCORBIC ACID 500 MG TAB PO SCH (08:23)
[2016-10-20] MEDS: CHLORDIAZEPOXIDE 25 MG CAP PO SCH ×3 (08:23→22:38)
[2016-10-20] MEDS ORDERED: MULTIVITAMINS IVPB SCH (09:00)
[2016-10-20] MEDS ORDERED: DEXTROSE 5% IVPB SCH (09:00)
[2016-10-20] MEDS ORDERED: FOLIC ACID IVPB SCH (09:00)
[2016-10-20] MEDS ORDERED: THIAMINE IVPB SCH (09:00)
--- NOTE | 2016-10-20 13:20 | PN ---
Date/Time of Note Date/Time of Note DATE: 10/20/16 TIME: 13:18 Assessment/Plan VTE Prophylaxis VTE Prophylaxis Intervention: SCD's Lines/Catheters [facility] Saline Lock Urinary Cath still in place: No Assessment/Plan Chief Complaint/Hosp Course ASSESSMENT AND PLAN: 1. Rhabdomyolysis. Resolved status post IV fluids 2. History and current alcohol dependency. Start folic acid thiamine and multivitamin, Librium and Ativan. 3. Transaminitis secondary to #3. 4. Hepatic encephalopathy / altered mental status,, follow-up ammonia level, continue lactulose 5. Thrombocytopenia secondary to history of alcoholism. No evidence of acute bleeding at this time. 6. Anemia. Continue iron supplementation, follow up hemoglobin and hematocrit 7. For deep venous thrombosis prophylaxis, on sequential compression devices. 8. Gastrointestinal prophylaxis, on Protonix We will continue to monitor patient closely. Further recommendations, management and treatment as per clinical course. Problems: Subjective 24 Hr Interval Summary Free Text/Dictation Patient continues to have altered mental status and hallucinations Denies of any chest pain or shortness of breath Tolerating oral intake Exam/Review of Systems Vital Signs Vitals Vital Signs Date Time Temp Pulse Resp B/P Pulse Ox O2 Delivery O2 Flow Rate FiO2 10/20/16 08:05 97.9 77 18 129/63 99 Intake and Output 10/19/16 10/19/16 10/20/16 15:00 23:00 07:00 Intake Total 880 ml 1851.2 ml Output Total 1300 ml Balance 880 ml 551.2 ml Exam General: The patient is well-developed, Not in acute distress. HEENT: Conjunctivae is icteric, normocephalic. The pupils are equal and round . Neck: Supple with full range of motion. Chest: Normal expansion of the thorax during inspiration Lungs: Clear to auscultation bilaterally Heart: Normal S1-S2, Regular rhythm and rate. Abdomen: Soft , nontender, nondistended , bowel sounds are present. Extremities: Normal to inspection, no edema no cyanosis Neurologic:,The patient is awake, alert Results Result Diagram: 10/18/16 0510 10/18/16 05 Medications Medications Current Medications Ondansetron HCl (Zofran Inj) 4 mg Q6H PRN IV NAUSEA AND/OR VOMITING Last administered on 10/16/16t 22:32; Admin Dose 4 MG; Start 10/05/16 at 16:30 Morphine Sulfate (morphine) 1 mg Q4H PRN IV SEVERE PAIN LEVEL 7-10 Last administered on 10/14/16 21:15; Admin Dose 1 MG; Start 10/05/16 at 16:30 Chlordiazepoxide (Librium) 25 mg TID PO Last administered on 10/20/16 12:49; Admin Dose 25 MG; Start 10/05/16 at 21:00 Famotidine (Pepcid) 20 mg DAILY PO Last administered on 10/20/16 08:23; Admin Dose 20 MG; Start 10/06/16 at 09:00 Ferrous Sulfate (Ferrous Sulfate (Ec)) 325 mg DAILY PO Last administered on 08:23; Admin Dose 325 MG; Start 10/07/16 at 12:00 Ascorbic Acid (Vitamin C) 500 mg DAILY PO Last administered on 10/20/16 08:23 ; Admin Dose 500 MG; Start 10/08/16 at 09:00 Acetaminophen (Tylenol Tab) 650 mg Q6H PRN PO PAIN AND OR ELEVATED TEMP Last administered on 10/12/16 09:17; Admin Dose 650 MG; Start 10/08/16 at 11:14 Pantoprazole (Protonix Tab) 40 mg BID@06,18 PO Last administered on 10/20/16 07:12; Admin Dose 40 MG; Start 10/08/16 at 18:00 Acetaminophen/ Hydrocodone Bitart ([place] (5/325)) 1 tab Q4H PRN PO pain Last administered on 10/19/16 08:56; Admin Dose 1 TAB; Start 10/08/16 at 16:00 Nitroglycerin (Nitroglycerin (Sl Tab) 0.4 Mg) 1 tab Q5M PRN SL ANGINA Last administered on 10/10/16 21:24; Admin Dose 1 TAB; Start 10/10/16 at 21:30 Magnesium Oxide (Mag-Ox 400) 400 mg BID PO Last administered on 10/20/16 08:23 ; Admin Dose 400 MG; Start 10/11/16 at 12:30 Lactulose (Enulose) 30 gm QID PO Last administered on 10/20/16 12:49; Admin Dose 30 GM; Start 10/13/16 at 13:00 Lorazepam (Ativan) 1 mg Q8H PRN PO ANXIETY Last administered on 10/18/16 17:56 ; Admin Dose 1 MG; Start 10/15/16 at 11:30 Lorazepam 1 mg 1 mg Q6H PRN IV AGITATION/ANXIETY Last administered on 10/18/16 02:37; Admin Dose 1 MG; Start 10/16/16 at 21:00 Multivitamins/ Thiamine HCl/ Folic Acid/ Dextrose (Mvi-12 Adult/ Vitamin B1/ Folic Acid/D5W) 1,011.2 ml @ 100 mls/ hr DAILY@09 IVPB Last administered on 08:36; Admin Dose 100 MLS/HR; Start 10/20/16 at 09:00 CARL PIERRE MD Oct 20, 2016 13:20
[2016-10-20] MEDS ORDERED: THIAMINE 100 MG TAB PO SCH (13:30)
[2016-10-20] MEDS: QUETIAPINE 25 MG TAB PO SCH ×2 (13:52→22:38)
[2016-10-20] MEDS: LORAZEPAM 1 MG TAB PO PRN (17:18)
[2016-10-20 20:59] VITALS: BP 130/65; RESP 18
[2016-10-21] MEDS: LORAZEPAM 1 MG TAB PO PRN ×2 (01:39→20:51)
[2016-10-21] MEDS: PANTOPRAZOLE (EC) 40 MG TAB PO SCH ×2 (07:20→17:39)
[2016-10-21 08:30] VITALS: BP 136/73; RESP 20
[2016-10-21] MEDS: LACTULOSE 30ML CUP PO SCH ×2 (09:00→20:51)
[2016-10-21] MEDS: FERROUS SULFATE (EC) 325 MG TAB PO SCH (10:16)
[2016-10-21] MEDS: THIAMINE 100 MG TAB PO SCH (10:16)
[2016-10-21] MEDS: CHLORDIAZEPOXIDE 25 MG CAP PO SCH ×3 (10:16→20:51)
[2016-10-21] MEDS: QUETIAPINE 25 MG TAB PO SCH ×2 (10:16→20:50)
[2016-10-21] MEDS: MAGNESIUM OXIDE 400 MG TAB PO SCH ×2 (10:17→20:50)
[2016-10-21] MEDS: ASCORBIC ACID 500 MG TAB PO SCH (10:17)
[2016-10-21] MEDS: FOLIC ACID 1 MG TAB PO SCH (10:17)
[2016-10-21] MEDS: FAMOTIDINE 20 MG TAB PO SCH (10:17)
[2016-10-21] MEDS: MULTIVITAMINS THERAPEUTIC TAB PO SCH (10:17)
--- NOTE | 2016-10-21 13:08 | PN ---
Date/Time of Note Date/Time of Note DATE: 10/21/16 TIME: 13:07 Assessment/Plan VTE Prophylaxis VTE Prophylaxis Intervention: SCD's Lines/Catheters IV [facility] Type [facility] Saline Lock Urinary Cath still in place: No Assessment/Plan Chief Complaint/Hosp Course ASSESSMENT AND PLAN: 1. Rhabdomyolysis. Resolved status post IV fluids 2. History and current alcohol dependency. Start folic acid thiamine and multivitamin, Librium and Ativan. 3. Transaminitis secondary to #3. 4. Hepatic encephalopathy / altered mental status,, follow-up ammonia level, continue lactulose 5. Thrombocytopenia secondary to history of alcoholism. No evidence of acute bleeding at this time. 6. Anemia. Continue iron supplementation, follow up hemoglobin and hematocrit 7. For deep venous thrombosis prophylaxis, on sequential compression devices. 8. Gastrointestinal prophylaxis, on Protonix We will continue to monitor patient closely. Further recommendations, management and treatment as per clinical course. Problems: Subjective 24 Hr Interval Summary Free Text/Dictation Patient continues to have episodes of confusion and grogginess Tolerating oral intake Refusing his lactulose Exam/Review of Systems Vital Signs Vitals Vital Signs Date Time Temp Pulse Resp B/P Pulse Ox O2 Delivery O2 Flow Rate FiO2 10/21/16 08:30 97.9 79 20 136/73 99 Intake and Output 10/20/16 10/20/16 10/21/16 15:00 23:00 07:00 Intake Total 2291.2 ml 440 ml Output Total 400 ml Balance 2291.2 ml 40 ml Exam General: The patient is well-developed, Not in acute distress. HEENT: Atraumatic, normocephalic. The pupils are equal and round . Neck: Supple with full range of motion. Chest: Normal expansion of the thorax during inspiration Lungs: Clear to auscultation bilaterally Heart: Normal S1-S2, Regular rhythm and rate. Abdomen: Soft , nontender, nondistended , bowel sounds are present. Extremities: Normal to inspection, no edema no cyanosis Neurologic: ,The patient is awake, alert Results Result Diagram: 10/18/16 0510 10/18/16 0510 Medications Medications Current Medications Ondansetron HCl (Zofran Inj) 4 mg Q6H PRN IV NAUSEA AND/OR VOMITING Last administered on 10/16/16t 22:32; Admin Dose 4 MG; Start 10/05/16 at 16:30 Morphine Sulfate (morphine) 1 mg Q4H PRN IV SEVERE PAIN LEVEL 7-10 Last administered on 10/14/16 21:15; Admin Dose 1 MG; Start 10/05/16 at 16:30 Chlordiazepoxide (Librium) 25 mg TID PO Last administered on 10/21/16 10:16; Admin Dose 25 MG; Start 10/05/16 at 21:00 Famotidine (Pepcid) 20 mg DAILY PO Last administered on 10/21/16 10:17; Admin Dose 20 MG; Start 10/06/16 at 09:00 Ferrous Sulfate (Ferrous Sulfate (Ec)) 325 mg DAILY PO Last administered on 10:16; Admin Dose 325 MG; Start 10/07/16 at 12:00 Ascorbic Acid (Vitamin C) 500 mg DAILY PO Last administered on 10/21/16 10:17 ; Admin Dose 500 MG; Start 10/08/16 at 09:00 Acetaminophen (Tylenol Tab) 650 mg Q6H PRN PO PAIN AND OR ELEVATED TEMP Last administered on 10/12/16 09:17; Admin Dose 650 MG; Start 10/08/16 at 11:14 Pantoprazole (Protonix Tab) 40 mg BID@,18 PO Last administered on 10/20/16 17:18; Admin Dose 40 MG; Start 10/08/16 at 18:00 Acetaminophen/ Hydrocodone Bitart ([place] (5/325)) 1 tab Q4H PRN PO pain Last administered on 10/19/16 08:56; Admin Dose 1 TAB; Start 10/08/16 at 16:00 Nitroglycerin (Nitroglycerin (Sl Tab) 0.4 Mg) 1 tab Q5M PRN SL ANGINA Last administered on 10/10/16 21:24; Admin Dose 1 TAB; Start 10/10/16 at 21:30 Magnesium Oxide (Mag-Ox 400) 400 mg BID PO Last administered on 10/21/16 10:17 ; Admin Dose 400 MG; Start 10/11/16 at 12:30 Lactulose (Enulose) 30 gm QID PO Last administered on 10/20/16 22:38; Admin Dose 30 GM; Start 10/13/16 at 13:00 Lorazepam (Ativan) 1 mg Q8H PRN PO ANXIETY Last administered on 10/21/16 01:39 ; Admin Dose 1 MG; Start 10/15/16 at 11:30 Quetiapine Fumarate (Seroquel) 25 mg BID PO Last administered on 10/21/16 10: 16; Admin Dose 25 MG; Start 10/20/16 at 13:30 Multivitamins Therapeutic (Theragran) 1 tab DAILY PO Last administered on 10:17; Admin Dose 1 TAB; Start 10/21/16 at 09:00 Folic Acid (Folic Acid) 1 mg DAILY PO Last administered on 10/21/16 10:17; Admin Dose 1 MG; Start 10/21/16 at 09:00 Thiamine HCl (Vitamin B1) 100 mg DAILY PO Last administered on 10/21/16 10:16 ; Admin Dose 100 MG; Start 10/21/16 at 09:00 CARL PIERRE MD Oct 21, 2016 13:07
[2016-10-21 19:28] VITALS: BP 124/62; RESP 20
[2016-10-22] MEDS: PANTOPRAZOLE (EC) 40 MG TAB PO SCH ×2 (05:50→18:33)
[2016-10-22 06:01] LABS: ADD SCAN DIFF NO
[2016-10-22 06:14] LABS: ABNORMAL IP MESSAGE 1; BASOPHILS % 0.8 % (0.0-2.0); EOSINOPHILS # 0.3 10^3/ul (0.0-0.5); EOSINOPHILS % 6.9 % (0.0-7.0); HEMATOCRIT 36.3 % (42.0-52.0); HEMOGLOBIN 11.1 g/dl (14.0-18.0); LYMPHOCYTES # 1.4 10^3/ul (0.8-2.9); LYMPHOCYTES % 29.4 % (15.0-51.0); MEAN CORPUSCULAR HEMOGLOBIN 28.8 pg (29.0-33.0); MEAN CORPUSCULAR HGB CONC 30.6 g/dl (32.0-37.0); MEAN CORPUSCULAR VOLUME 94.3 fl (82.0-101.0); MONOCYTE # 0.5 10^3/ul (0.3-0.9); MONOCYTES % 10.3 % (0.0-11.0); NEUTROPHIL # 2.5 10^3/ul (1.6-7.5); NEUTROPHILS % 52.4 % (39.0-77.0); RED BLOOD COUNT 3.85 10^6/ul (4.70-6.10); RED CELL DISTRIBUTION WIDTH 25.2 % (11.5-14.5); WHITE BLOOD COUNT 4.8 10^3/ul (4.8-10.8)
[2016-10-22 06:21] LABS: PLATELET COUNT 65 10^3/UL (140-415)
[2016-10-22 06:26] LABS: ALBUMIN 2.5 g/dl (3.3-4.9)
[2016-10-22 06:29] LABS: ALBUMIN/GLOBULIN RATIO 0.71; BILIRUBIN,INDIRECT 1.5 mg/dl (0-1.1); BILIRUBIN,TOTAL 1.5 mg/dl (0.2-1.3); CALCIUM 8.6 mg/dl (8.4-10.2); CREATININE 0.52 mg/dl (0.61-1.24)
[2016-10-22 06:30] LABS: MAGNESIUM 1.7 mg/dl (1.7-2.5)
[2016-10-22 07:29] VITALS: BP 109/55; RESP 16
[2016-10-22] MEDS: LACTULOSE 30ML CUP PO SCH ×3 (08:41→20:24)
[2016-10-22] MEDS: THIAMINE 100 MG TAB PO SCH (08:44)
[2016-10-22] MEDS: MAGNESIUM OXIDE 400 MG TAB PO SCH ×2 (08:44→20:24)
[2016-10-22] MEDS: FAMOTIDINE 20 MG TAB PO SCH (08:44)
[2016-10-22] MEDS: FOLIC ACID 1 MG TAB PO SCH (08:44)
[2016-10-22] MEDS: MULTIVITAMINS THERAPEUTIC TAB PO SCH (08:44)
[2016-10-22] MEDS: QUETIAPINE 25 MG TAB PO SCH ×2 (08:44→20:24)
[2016-10-22] MEDS: ASCORBIC ACID 500 MG TAB PO SCH (08:44)
[2016-10-22] MEDS: FERROUS SULFATE (EC) 325 MG TAB PO SCH (08:44)
[2016-10-22] MEDS: CHLORDIAZEPOXIDE 25 MG CAP PO SCH ×3 (08:46→20:24)
--- NOTE | 2016-10-22 14:05 | PN ---
Date/Time of Note Date/Time of Note DATE: 10/22/16 TIME: 14:03 Assessment/Plan VTE Prophylaxis VTE Prophylaxis Intervention: SCD's Lines/Catheters IV Catheter Type (from [facility]): Saline Lock Urinary Cath still in place: No Assessment/Plan Chief Complaint/Hosp Course ASSESSMENT AND PLAN: 1. Rhabdomyolysis. Resolved status post IV fluids 2. History and current alcohol dependency. Start folic acid thiamine and multivitamin, Librium and Ativan. 3. Transaminitis secondary to #3. 4. Hepatic encephalopathy / altered mental status,, follow-up ammonia level, continue lactulose 5. Thrombocytopenia secondary to history of alcoholism. No evidence of acute bleeding at this time. 6. Anemia. Continue iron supplementation, follow up hemoglobin and hematocrit 7. For deep venous thrombosis prophylaxis, on sequential compression devices. 8. Gastrointestinal prophylaxis, on Protonix We will continue to monitor patient closely. Further recommendations, management and treatment as per clinical course. Problems: Subjective 24 Hr Interval Summary Free Text/Dictation Patient has been refusing his lactulose He continues to have hallucinations and delusions No nausea vomiting diarrhea Exam/Review of Systems Vital Signs Vitals Vital Signs Date Time Temp Pulse Resp B/P Pulse Ox O2 Delivery O2 Flow Rate FiO2 10/22/16 07:29 97.9 73 16 109/55 96 Intake and Output 10/21/16 10/21/16 10/22/16 15:00 23:00 07:00 Intake Total 1120 ml 680 ml 120 ml Output Total 850 ml 400 ml 500 ml Balance 270 ml 280 ml -380 ml Exam General: The patient is well-developed, Not in acute distress. HEENT: Conjunctivae is icteric, normocephalic. The pupils are equal and round . Neck: Supple with full range of motion. Chest: Normal expansion of the thorax during inspiration Lungs: Clear to auscultation bilaterally Heart: Normal S1-S2, Regular rhythm and rate. Abdomen: Soft , nontender, nondistended , bowel sounds are present. Extremities: Normal to inspection, no edema no cyanosis Neurologic: ,The patient is awake, follow command Results Result Diagram: 10/22/16 0544 10/22/16 0544 Results 24 hrs Laboratory Tests Test 10/22/16 05:44 Alanine Aminotransferase (ALT/SGPT) 30 Albumin 2.5 L Albumin/Globulin Ratio 0.71 Alkaline Phosphatase 134 H Ammonia 118 #H Anion Gap 14 Aspartate Amino Transf (AST/SGOT) 49 H Basophils # 0.0 Basophils % 0.8 Blood Urea Nitrogen 8 Calcium Level 8.6 Carbon Dioxide Level 25 Chloride Level 112 H Creatinine 0.52 L Direct Bilirubin 0.00 Eosinophils # 0.3 Eosinophils % 6.9 Globulin 3.50 H Glucose Level 86 Hematocrit 36.3 L Hemoglobin 11.1 L Indirect Bilirubin 1.5 H Lymphocytes # 1.4 Lymphocytes % 29.4 Magnesium Level 1.7 Mean Corpuscular Hemoglobin 28.8 L Mean Corpuscular Hemoglobin Concent 30.6 L Mean Corpuscular Volume 94.3 Mean Platelet Volume Monocytes # 0.5 Monocytes % 10.3 Neutrophils # 2.5 Neutrophils % 52.4 Nucleated Red Blood Cells # 0.0 Nucleated Red Blood Cells % 0.0 Platelet Count 65 #L Potassium Level 4.0 Red Blood Count 3.85 L Red Cell Distribution Width 25.2 H Sodium Level 147 H Total Bilirubin 1.5 H Total Protein 6.0 L White Blood Count 4.8 Medications Medications Current Medications Ondansetron HCl (Zofran Inj) 4 mg Q6H PRN IV NAUSEA AND/OR VOMITING Last administered on 10/16/16 22:32; Admin Dose 4 MG; Start 10/05/16 at 16:30 Morphine Sulfate (morphine) 1 mg Q4H PRN IV SEVERE PAIN LEVEL 7-10 Last administered on 10/14/16 21:15; Admin Dose 1 MG; Start 10/05/16 at 16:30 Chlordiazepoxide (Librium) 25 mg TID PO Last administered on 10/22/16 13:45; Admin Dose 25 MG; Start 10/05/16 at 21:00 Famotidine (Pepcid) 20 mg DAILY PO Last administered on 10/22/16 08:44; Admin Dose 20 MG; Start 10/06/16 at 09:00 Ferrous Sulfate (Ferrous Sulfate (Ec)) 325 mg DAILY PO Last administered on 08:44; Admin Dose 325 MG; Start 10/07/16 at 12:00 Ascorbic Acid (Vitamin C) 500 mg DAILY PO Last administered on 10/22/16 08:44 ; Admin Dose 500 MG; Start 10/08/16 at 09:00 Acetaminophen (Tylenol Tab) 650 mg Q6H PRN PO PAIN AND OR ELEVATED TEMP Last administered on 10/12/16 09:17; Admin Dose 650 MG; Start 10/08/16 at 11:14 Pantoprazole (Protonix Tab) 40 mg BID@,18 PO Last administered on 10/22/16 05:50; Admin Dose 40 MG; Start 10/08/16 at 18:00 Acetaminophen/ Hydrocodone Bitart ([place] (5/325)) 1 tab Q4H PRN PO pain Last administered on 10/19/16 08:56; Admin Dose 1 TAB; Start 10/08/16 at 16:00 Nitroglycerin (Nitroglycerin (Sl Tab) 0.4 Mg) 1 tab Q5M PRN SL ANGINA Last administered on 10/10/16 21:24; Admin Dose 1 TAB; Start 10/10/16 at 21:30 Magnesium Oxide (Mag-Ox 400) 400 mg BID PO Last administered on 10/22/16 08:44 ; Admin Dose 400 MG; Start 10/11/16 at 12:30 Lorazepam (Ativan) 1 mg Q8H PRN PO ANXIETY Last administered on 10/21/16 20:51 ; Admin Dose 1 MG; Start 10/15/16 at 11:30 Quetiapine Fumarate (Seroquel) 25 mg BID PO Last administered on 10/22/16 08: 44; Admin Dose 25 MG; Start 10/20/16 at 13:30 Multivitamins Therapeutic (Theragran) 1 tab DAILY PO Last administered on 08:44; Admin Dose 1 TAB; Start 10/21/16 at 09:00 Folic Acid (Folic Acid) 1 mg DAILY PO Last administered on 10/22/16 08:44; Admin Dose 1 MG; Start 10/21/16 at 09:00 Thiamine HCl (Vitamin B1) 100 mg DAILY PO Last administered on 10/22/16 08:44 ; Admin Dose 100 MG; Start 10/21/16 at 09:00 Lactulose (Enulose) 20 gm TID PO Last administered on 10/22/16 13:45; Admin Dose 20 GM; Start 10/21/16 at 21:00 CARL PIERRE MD Oct 22, 2016 14:05
[2016-10-22] MEDS ORDERED: LACTULOSE 30ML CUP PO ONE (14:30)
[2016-10-22 19:24] VITALS: BP 151/67; RESP 19
[2016-10-22] MEDS: LORAZEPAM 1 MG TAB PO PRN (19:56)
[2016-10-23] MEDS: PANTOPRAZOLE (EC) 40 MG TAB PO SCH ×2 (05:54→18:53)
[2016-10-23 08:00] VITALS: BP 120/60; RESP 18
[2016-10-23] MEDS: CHLORDIAZEPOXIDE 25 MG CAP PO SCH ×3 (09:07→21:38)
[2016-10-23] MEDS: FAMOTIDINE 20 MG TAB PO SCH (09:07)
[2016-10-23] MEDS: MAGNESIUM OXIDE 400 MG TAB PO SCH ×2 (09:07→21:38)
[2016-10-23] MEDS: FERROUS SULFATE (EC) 325 MG TAB PO SCH (09:07)
[2016-10-23] MEDS: LACTULOSE 30ML CUP PO SCH ×3 (09:07→21:38)
[2016-10-23] MEDS: ASCORBIC ACID 500 MG TAB PO SCH (09:07)
[2016-10-23] MEDS: FOLIC ACID 1 MG TAB PO SCH (09:07)
[2016-10-23] MEDS: MULTIVITAMINS THERAPEUTIC TAB PO SCH (09:07)
[2016-10-23] MEDS: THIAMINE 100 MG TAB PO SCH (09:07)
[2016-10-23] MEDS: QUETIAPINE 25 MG TAB PO SCH ×2 (09:07→21:38)
[2016-10-23] MEDS ORDERED: VITAMIN A & D 5 GM OINT PACKET TOP ONE (09:16)
[2016-10-23] MEDS: morphine 2 MG INJ IV PRN (11:24)
--- NOTE | 2016-10-23 15:24 | PN ---
Date/Time of Note Date/Time of Note DATE: 10/23/16 TIME: 15:22 Assessment/Plan VTE Prophylaxis VTE Prophylaxis Intervention: SCD's Lines/Catheters IV Catheter Type (from [facility]): Saline Lock Urinary Cath still in place: No Assessment/Plan Chief Complaint/Hosp Course ASSESSMENT AND PLAN: 1. Rhabdomyolysis. Resolved status post IV fluids 2. History and current alcohol dependency. Continue folic acid thiamine and multivitamin, Librium and Ativan. 3. Transaminitis secondary to #3. 4. Hepatic encephalopathy / altered mental status,, follow-up ammonia level, continue lactulose 5. Thrombocytopenia secondary to history of alcoholism. No evidence of acute bleeding at this time. 6. Anemia. Continue iron supplementation, follow up hemoglobin and hematocrit 7. For deep venous thrombosis prophylaxis, on sequential compression devices. 8. Gastrointestinal prophylaxis, on Protonix We will continue to monitor patient closely. Further recommendations, management and treatment as per clinical course. Problems: Subjective 24 Hr Interval Summary Free Text/Dictation Patient continues to be altered Tolerating oral intake Continues to have gait instability Exam/Review of Systems Vital Signs Vitals Vital Signs Date Time Temp Pulse Resp B/P Pulse Ox O2 Delivery O2 Flow Rate FiO2 10/23/16 08:00 98.0 72 18 120/60 98 Intake and Output 10/22/16 10/22/16 10/23/16 15:00 23:00 07:00 Intake Total 600 ml Output Total 1300 ml Balance -700 ml Exam General: The patient is well-developed, Not in acute distress. HEENT: Atraumatic, normocephalic. The pupils are equal and round . Neck: Supple with full range of motion. Chest: Normal expansion of the thorax during inspiration Lungs: Clear to auscultation bilaterally Heart: Normal S1-S2, Regular rhythm and rate. Abdomen: Soft , nontender, nondistended , bowel sounds are present. Extremities: Normal to inspection, no edema no cyanosis Neurologic: Episodes of confusion,The patient is awake, alert Results Result Diagram: 10/22/16 0544 10/22/16 0544 Results 24 hrs Laboratory Tests Test 10/23/16 05:03 Ammonia 87 H Medications Medications Current Medications Ondansetron HCl (Zofran Inj) 4 mg Q6H PRN IV NAUSEA AND/OR VOMITING Last administered on 10/16/16t 22:32; Admin Dose 4 MG; Start 10/05/16 at 16:30 Morphine Sulfate (morphine) 1 mg Q4H PRN IV SEVERE PAIN LEVEL 7-10 Last administered on 10/23/16 11:24; Admin Dose 1 MG; Start 10/05/16 at 16:30 Chlordiazepoxide (Librium) 25 mg TID PO Last administered on 10/23/16 13:33; Admin Dose 25 MG; Start 10/05/16 at 21:00 Famotidine (Pepcid) 20 mg DAILY PO Last administered on 10/23/16 09:07; Admin Dose 20 MG; Start 10/06/16 at 09:00 Ferrous Sulfate (Ferrous Sulfate (Ec)) 325 mg DAILY PO Last administered on 09:07; Admin Dose 325 MG; Start 10/07/16 at 12:00 Ascorbic Acid (Vitamin C) 500 mg DAILY PO Last administered on 10/23/16 09:07 ; Admin Dose 500 MG; Start 10/08/16 at 09:00 Acetaminophen (Tylenol Tab) 650 mg Q6H PRN PO PAIN AND OR ELEVATED TEMP Last administered on 10/12/16 09:17; Admin Dose 650 MG; Start 10/08/16 at 11:14 Pantoprazole (Protonix Tab) 40 mg BID@06,18 PO Last administered on 10/23/16 05:54; Admin Dose 40 MG; Start 10/08/16 at 18:00 Acetaminophen/ Hydrocodone Bitart ([place] (5/325)) 1 tab Q4H PRN PO pain Last administered on 10/19/16 08:56; Admin Dose 1 TAB; Start 10/08/16 at 16:00 Nitroglycerin (Nitroglycerin (Sl Tab) 0.4 Mg) 1 tab Q5M PRN SL ANGINA Last administered on 10/10/16 21:24; Admin Dose 1 TAB; Start 10/10/16 at 21:30 Magnesium Oxide (Mag-Ox 400) 400 mg BID PO Last administered on 10/23/16 09:07 ; Admin Dose 400 MG; Start 10/11/16 at 12:30 Lorazepam (Ativan) 1 mg Q8H PRN PO ANXIETY Last administered on 10/22/16 19:56 ; Admin Dose 1 MG; Start 10/15/16 at 11:30 Quetiapine Fumarate (Seroquel) 25 mg BID PO Last administered on 10/23/16 09: 07; Admin Dose 25 MG; Start 10/20/16 at 13:30 Multivitamins Therapeutic (Theragran) 1 tab DAILY PO Last administered on 09:07; Admin Dose 1 TAB; Start 10/21/16 at 09:00 Folic Acid (Folic Acid) 1 mg DAILY PO Last administered on 10/23/16 09:07; Admin Dose 1 MG; Start 10/21/16 at 09:00 Thiamine HCl (Vitamin B1) 100 mg DAILY PO Last administered on 10/23/16 09:07 ; Admin Dose 100 MG; Start 10/21/16 at 09:00 Lactulose (Enulose) 20 gm TID PO Last administered on 10/23/16 13:33; Admin Dose 20 GM; Start 10/21/16 at 21:00 CARL PIERRE MD Oct 23, 2016 15:24
[2016-10-23 19:34] VITALS: BP 130/71; RESP 18
[2016-10-24] MEDS: LORAZEPAM 1 MG TAB PO PRN (03:53)
[2016-10-24] MEDS: PANTOPRAZOLE (EC) 40 MG TAB PO SCH ×2 (05:30→17:48)
[2016-10-24 08:38] VITALS: BP 132/66; RESP 19
[2016-10-24] MEDS: ASCORBIC ACID 500 MG TAB PO SCH (09:09)
[2016-10-24] MEDS: FAMOTIDINE 20 MG TAB PO SCH (09:09)
[2016-10-24] MEDS: QUETIAPINE 25 MG TAB PO SCH ×2 (09:09→21:36)
[2016-10-24] MEDS: MULTIVITAMINS THERAPEUTIC TAB PO SCH (09:09)
[2016-10-24] MEDS: FOLIC ACID 1 MG TAB PO SCH (09:09)
[2016-10-24] MEDS: LACTULOSE 30ML CUP PO SCH ×3 (09:09→21:36)
[2016-10-24] MEDS: MAGNESIUM OXIDE 400 MG TAB PO SCH ×2 (09:09→21:36)
[2016-10-24] MEDS: THIAMINE 100 MG TAB PO SCH (09:09)
[2016-10-24] MEDS: CHLORDIAZEPOXIDE 25 MG CAP PO SCH ×3 (09:10→21:36)
[2016-10-24] MEDS: FERROUS SULFATE (EC) 325 MG TAB PO SCH (09:10)
--- NOTE | 2016-10-24 17:07 | PN ---
Date/Time of Note Date/Time of Note DATE: 10/24/16 TIME: 17:06 Assessment/Plan VTE Prophylaxis VTE Prophylaxis Intervention: SCD's Lines/Catheters IV C[facility]ter Type (from [facility]): Saline Lock Urinary Cath still in place: No Assessment/Plan Chief Complaint/Hosp Course ASSESSMENT AND PLAN: 1. Rhabdomyolysis. Resolved status post IV fluids 2. History and current alcohol dependency. Continue folic acid thiamine and multivitamin, Librium and Ativan. 3. Transaminitis secondary to #3. 4. Hepatic encephalopathy / altered mental status,, follow-up ammonia level, continue lactulose 5. Thrombocytopenia secondary to history of alcoholism. No evidence of acute bleeding at this time. 6. Anemia. Continue iron supplementation, follow up hemoglobin and hematocrit 7. For deep venous thrombosis prophylaxis, on sequential compression devices. 8. Gastrointestinal prophylaxis, on Protonix We will continue to monitor patient closely. Further recommendations, management and treatment as per clinical course. Problems: Subjective 24 Hr Interval Summary Free Text/Dictation No acute changes Patient continues to have difficulty with ambulation and gait instability Tolerating oral intake Exam/Review of Systems Vital Signs Vitals Vital Signs Date Time Temp Pulse Resp B/P Pulse Ox O2 Delivery O2 Flow Rate FiO2 10/24/16 08:38 98.2 74 19 132/66 96 Intake and Output 10/23/16 10/23/16 10/24/16 15:00 23:00 07:00 Intake Total 700 ml Output Total 325 ml Balance 375 ml Exam General: The patient is well-developed, Not in acute distress. HEENT: Conjunctivitis is icteric, normocephalic. The pupils are equal and round . Neck: Supple with full range of motion. Chest: Normal expansion of the thorax during inspiration Lungs: Clear to auscultation bilaterally Heart: Normal S1-S2, Regular rhythm and rate. Abdomen: Soft , nontender, nondistended , bowel sounds are present. Extremities: Normal to inspection, no edema no cyanosis Neurologic: Improvement in mental status,The patient is awake, alert Results Result Diagram: 10/22/16 0544 10/22/16 0544 Results 24 hrs Laboratory Tests Test 10/24/16 05:10 Ammonia 66 H Medications Medications Current Medications Ondansetron HCl (Zofran Inj) 4 mg Q6H PRN IV NAUSEA AND/OR VOMITING Last administered on 10/16/16 22:32; Admin Dose 4 MG; Start 10/05/16 at 16:30 Morphine Sulfate (morphine) 1 mg Q4H PRN IV SEVERE PAIN LEVEL 7-10 Last administered on 10/23/16 11:24; Admin Dose 1 MG; Start 10/05/16 at 16:30 Chlordiazepoxide (Librium) 25 mg TID PO Last administered on 10/24/16 12:52; Admin Dose 25 MG; Start 10/05/16 at 21:00 Famotidine (Pepcid) 20 mg DAILY PO Last administered on 10/24/16 09:09; Admin Dose 20 MG; Start 10/06/16 at 09:00 Ferrous Sulfate (Ferrous Sulfate (Ec)) 325 mg DAILY PO Last administered on 09:10; Admin Dose 325 MG; Start 10/07/16 at 12:00 Ascorbic Acid (Vitamin C) 500 mg DAILY PO Last administered on 10/24/16 09:09 ; Admin Dose 500 MG; Start 10/08/16 at 09:00 Acetaminophen (Tylenol Tab) 650 mg Q6H PRN PO PAIN AND OR ELEVATED TEMP Last administered on 10/12/16 09:17; Admin Dose 650 MG; Start 10/08/16 at 11:14 Pantoprazole (Protonix Tab) 40 mg BID@06,18 PO Last administered on 10/24/16 05:30; Admin Dose 40 MG; Start 10/08/16 at 18:00 Acetaminophen/ Hydrocodone Bitart ([place] (5/325)) 1 tab Q4H PRN PO pain Last administered on 10/19/16 08:56; Admin Dose 1 TAB; Start 10/08/16 at 16:00 Nitroglycerin (Nitroglycerin (Sl Tab) 0.4 Mg) 1 tab Q5M PRN SL ANGINA Last administered on 10/10/16 21:24; Admin Dose 1 TAB; Start 10/10/16 at 21:30 Magnesium Oxide (Mag-Ox 400) 400 mg BID PO Last administered on 10/24/16 09:09 ; Admin Dose 400 MG; Start 10/11/16 at 12:30 Lorazepam (Ativan) 1 mg Q8H PRN PO ANXIETY Last administered on 10/24/16 03:53 ; Admin Dose 1 MG; Start 10/15/16 at 11:30 Quetiapine Fumarate (Seroquel) 25 mg BID PO Last administered on 10/24/16 09: 09; Admin Dose 25 MG; Start 10/20/16 at 13:30 Multivitamins Therapeutic (Theragran) 1 tab DAILY PO Last administered on 09:09; Admin Dose 1 TAB; Start 10/21/16 at 09:00 Folic Acid (Folic Acid) 1 mg DAILY PO Last administered on 10/24/16 09:09; Admin Dose 1 MG; Start 10/21/16 at 09:00 Thiamine HCl (Vitamin B1) 100 mg DAILY PO Last administered on 10/24/16 09:09 ; Admin Dose 100 MG; Start 10/21/16 at 09:00 Lactulose (Enulose) 20 gm TID PO Last administered on 10/24/16 12:52; Admin Dose 20 GM; Start 10/21/16 at 21:00 CARL PIERRE MD Oct 24, 2016 17:07
[2016-10-24 19:19] VITALS: BP 138/66; RESP 19
[2016-10-25] MEDS: LORAZEPAM 1 MG TAB PO PRN (01:38)
[2016-10-25 05:32] LABS: ADD SCAN DIFF NO
[2016-10-25 05:57] LABS: ABNORMAL IP MESSAGE 1; BASOPHILS % 0.7 % (0.0-2.0); EOSINOPHILS # 0.3 10^3/ul (0.0-0.5); EOSINOPHILS % 4.2 % (0.0-7.0); HEMATOCRIT 34.6 % (42.0-52.0); HEMOGLOBIN 11.1 g/dl (14.0-18.0); LYMPHOCYTES # 1.3 10^3/ul (0.8-2.9); LYMPHOCYTES % 22.2 % (15.0-51.0); MEAN CORPUSCULAR HEMOGLOBIN 29.9 pg (29.0-33.0); MEAN CORPUSCULAR HGB CONC 32.1 g/dl (32.0-37.0); MEAN CORPUSCULAR VOLUME 93.3 fl (82.0-101.0); MONOCYTE # 0.6 10^3/ul (0.3-0.9); MONOCYTES % 9.8 % (0.0-11.0); NEUTROPHIL # 3.8 10^3/ul (1.6-7.5); NEUTROPHILS % 62.8 % (39.0-77.0); RED BLOOD COUNT 3.71 10^6/ul (4.70-6.10); RED CELL DISTRIBUTION WIDTH 24.3 % (11.5-14.5)
[2016-10-25] MEDS: PANTOPRAZOLE (EC) 40 MG TAB PO SCH ×2 (06:16→18:03)
[2016-10-25 06:19] LABS: ALBUMIN 2.6 g/dl (3.3-4.9)
[2016-10-25 06:20] LABS: POTASSIUM 3.6 mmol/L (3.5-5.1)
[2016-10-25 06:22] LABS: BILIRUBIN,INDIRECT 1.3 mg/dl (0-1.1); BILIRUBIN,TOTAL 1.3 mg/dl (0.2-1.3); CREATININE 0.53 mg/dl (0.61-1.24)
[2016-10-25 06:23] LABS: ALBUMIN/GLOBULIN RATIO 0.72; CALCIUM 8.2 mg/dl (8.4-10.2); MAGNESIUM 1.6 mg/dl (1.7-2.5); TOTAL PROTEIN 6.2 g/dl (6.1-8.1)
[2016-10-25 06:53] LABS: PLATELET COUNT 50 10^3/UL (140-415)
[2016-10-25 07:44] VITALS: BP 122/67; RESP 18
[2016-10-25] MEDS: FAMOTIDINE 20 MG TAB PO SCH (08:43)
[2016-10-25] MEDS: MAGNESIUM OXIDE 400 MG TAB PO SCH ×2 (08:43→22:29)
[2016-10-25] MEDS: FOLIC ACID 1 MG TAB PO SCH (08:43)
[2016-10-25] MEDS: FERROUS SULFATE (EC) 325 MG TAB PO SCH (08:43)
[2016-10-25] MEDS: MULTIVITAMINS THERAPEUTIC TAB PO SCH (08:43)
[2016-10-25] MEDS: CHLORDIAZEPOXIDE 25 MG CAP PO SCH ×3 (08:43→22:29)
[2016-10-25] MEDS: QUETIAPINE 25 MG TAB PO SCH ×2 (08:43→22:29)
[2016-10-25] MEDS: ASCORBIC ACID 500 MG TAB PO SCH (08:43)
[2016-10-25] MEDS: THIAMINE 100 MG TAB PO SCH (08:44)
[2016-10-25] MEDS: LACTULOSE 30ML CUP PO SCH ×3 (08:44→22:29)
[2016-10-25] MEDS: HYDROCODONE/APAP (5/325) TAB PO PRN (08:44)
--- NOTE | 2016-10-25 16:04 | PN ---
Date/Time of Note Date/Time of Note DATE: 10/25/16 TIME: 16:02 Assessment/Plan VTE Prophylaxis VTE Prophylaxis Intervention: other Lines/Catheters IV [facility] Type [facility]from [facility] Saline Lock Urinary Cath still in place: No Assessment/Plan Chief Complaint/Hosp Course ASSESSMENT AND PLAN: 1. Rhabdomyolysis. Resolved status post IV fluids 2. History and current alcohol dependency. Continue folic acid thiamine and multivitamin, Librium and Ativan. 3. Transaminitis secondary to #3. 4. Hepatic encephalopathy / altered mental status,, follow-up ammonia level, continue lactulose 5. Thrombocytopenia secondary to history of alcoholism. No evidence of acute bleeding at this time. 6. Anemia. Continue iron supplementation, follow up hemoglobin and hematocrit 7. For deep venous thrombosis prophylaxis, on sequential compression devices. 8. Gastrointestinal prophylaxis, on Protonix We will continue to monitor patient closely. Further recommendations, management and treatment as per clinical course. Problems: Subjective 24 Hr Interval Summary Free Text/Dictation Patient continues to be groggy Ambulates with moderate assist and gait instability No nausea vomiting diarrhea Exam/Review of Systems Vital Signs Vitals Vital Signs Date Time Temp Pulse Resp B/P Pulse Ox O2 Delivery O2 Flow Rate FiO2 10/25/16 07:44 98.3 86 18 122/67 95 Intake and Output 10/24/16 10/24/16 10/25/16 14:59 22:59 06:59 Intake Total 940 ml Output Total 300 ml Balance 640 ml Exam General: The patient is well-developed, Not in acute distress. HEENT: The conjunctivitis is icteric, normocephalic. The pupils are equal and round . Neck: Supple with full range of motion. Chest: Normal expansion of the thorax during inspiration Lungs: Clear to auscultation bilaterally Heart: Normal S1-S2, Regular rhythm and rate. Abdomen: Soft , nontender, nondistended , bowel sounds are present. Extremities: Normal to inspection, no edema no cyanosis Neurologic: mental status altered,The patient is awake, although groggy Results Result Diagram: 10/25/16 0508 10/25/16 0508 Results 24 hrs Laboratory Tests Test 10/25/16 05:08 Alanine Aminotransferase (ALT/SGPT) 38 Albumin 2.6 L Albumin/Globulin Ratio 0.72 Alkaline Phosphatase 133 H Ammonia 82 H Anion Gap 14 Aspartate Amino Transf (AST/SGOT) 38 Basophils # 0.0 Basophils % 0.7 Blood Urea Nitrogen 8 Calcium Level 8.2 L Carbon Dioxide Level 26 Chloride Level 107 Creatinine 0.53 L Direct Bilirubin 0.00 Eosinophils # 0.3 Eosinophils % 4.2 Globulin 3.60 H Glucose Level 80 Hematocrit 34.6 L Hemoglobin 11.1 L Indirect Bilirubin 1.3 H Lymphocytes # 1.3 Lymphocytes % 22.2 Magnesium Level 1.6 L Mean Corpuscular Hemoglobin 29.9 Mean Corpuscular Hemoglobin Concent 32.1 Mean Corpuscular Volume 93.3 Mean Platelet Volume Monocytes # 0.6 Monocytes % 9.8 Neutrophils # 3.8 Neutrophils % 62.8 Nucleated Red Blood Cells # 0.0 Nucleated Red Blood Cells % 0.0 Platelet Count 50 #L Potassium Level 3.6 Red Blood Count 3.71 L Red Cell Distribution Width 24.3 H Sodium Level 143 Total Bilirubin 1.3 Total Protein 6.2 White Blood Count 6.0 # Medications Medications Current Medications Ondansetron HCl (Zofran Inj) 4 mg Q6H PRN IV NAUSEA AND/OR VOMITING Last administered on 10/16/16 22:32; Admin Dose 4 MG; Start 10/05/16 at 16:30 Morphine Sulfate (morphine) 1 mg Q4H PRN IV SEVERE PAIN LEVEL 7-10 Last administered on 10/23/16 11:24; Admin Dose 1 MG; Start 10/05/16 at 16:30 Chlordiazepoxide (Librium) 25 mg TID PO Last administered on 10/25/16 12:34; Admin Dose 25 MG; Start 10/05/16 at 21:00 Famotidine (Pepcid) 20 mg DAILY PO Last administered on 10/25/16 08:43; Admin Dose 20 MG; Start 10/06/16 at 09:00 Ferrous Sulfate (Ferrous Sulfate (Ec)) 325 mg DAILY PO Last administered on 08:43; Admin Dose 325 MG; Start 10/07/16 at 12:00 Ascorbic Acid (Vitamin C) 500 mg DAILY PO Last administered on 10/25/16 08:43 ; Admin Dose 500 MG; Start 10/08/16 at 09:00 Acetaminophen (Tylenol Tab) 650 mg Q6H PRN PO PAIN AND OR ELEVATED TEMP Last administered on 10/12/16 09:17; Admin Dose 650 MG; Start 10/08/16 at 11:14 Pantoprazole (Protonix Tab) 40 mg BID@06,18 PO Last administered on 10/25/16 06:16; Admin Dose 40 MG; Start 10/08/16 at 18:00 Acetaminophen/ Hydrocodone Bitart ([place] (5/325)) 1 tab Q4H PRN PO pain Last administered on 10/25/16 08:44; Admin Dose 1 TAB; Start 10/08/16 at 16:00 Nitroglycerin (Nitroglycerin (Sl Tab) 0.4 Mg) 1 tab Q5M PRN SL ANGINA Last administered on 10/10/16 21:24; Admin Dose 1 TAB; Start 10/10/16 at 21:30 Magnesium Oxide (Mag-Ox 400) 400 mg BID PO Last administered on 10/25/16 08:43 ; Admin Dose 400 MG; Start 10/11/16 at 12:30 Lorazepam (Ativan) 1 mg Q8H PRN PO ANXIETY Last administered on 10/25/16 01:38 ; Admin Dose 1 MG; Start 10/15/16 at 11:30 Quetiapine Fumarate (Seroquel) 25 mg BID PO Last administered on 10/25/16 08: 43; Admin Dose 25 MG; Start 10/20/16 at 13:30 Multivitamins Therapeutic (Theragran) 1 tab DAILY PO Last administered on 08:43; Admin Dose 1 TAB; Start 10/21/16 at 09:00 Folic Acid (Folic Acid) 1 mg DAILY PO Last administered on 10/25/16 08:43; Admin Dose 1 MG; Start 10/21/16 at 09:00 Thiamine HCl (Vitamin B1) 100 mg DAILY PO Last administered on 10/25/16 08:44 ; Admin Dose 100 MG; Start 10/21/16 at 09:00 Lactulose (Enulose) 20 gm TID PO Last administered on 10/25/16 12:34; Admin Dose 20 GM; Start 10/21/16 at 21:00 CARL PIERRE MD Oct 25, 2016 16:04
[2016-10-25 19:54] VITALS: BP 110/58; RESP 18
[2016-10-26] MEDS: LORAZEPAM 1 MG TAB PO PRN (00:57)
[2016-10-26] MEDS: PANTOPRAZOLE (EC) 40 MG TAB PO SCH ×2 (06:36→18:29)
[2016-10-26 07:16] VITALS: BP 114/62; RESP 18
[2016-10-26] MEDS: QUETIAPINE 25 MG TAB PO SCH ×2 (09:00→21:06)
--- NOTE | 2016-10-26 09:02 | PN ---
Date/Time of Note Date/Time of Note DATE: 10/26/16 TIME: 08:59 Assessment/Plan VTE Prophylaxis VTE Prophylaxis Intervention: SCD's Lines/Catheters IV C[facility]ter Type (from [facility] Saline Lock Urinary Cath still in place: No Assessment/Plan Chief Complaint/Hosp Course ASSESSMENT AND PLAN: 1. Rhabdomyolysis. Resolved status post IV fluids 2. History and current alcohol dependency. Continue folic acid thiamine and multivitamin, Librium and Ativan. 3. Transaminitis secondary to #3. 4. Hepatic encephalopathy / altered mental status,, follow-up ammonia level, transition oral lactulose to rectal 5. Thrombocytopenia secondary to history of alcoholism. No evidence of acute bleeding at this time. 6. Anemia. Continue iron supplementation, follow up hemoglobin and hematocrit 7. For deep venous thrombosis prophylaxis, on sequential compression devices. 8. Gastrointestinal prophylaxis, on Protonix We will continue to monitor patient closely. Further recommendations, management and treatment as per clinical course. Problems: Subjective 24 Hr Interval Summary Free Text/Dictation Patient is more altered than yesterday According to nurse he has not had any bowel movement Is found to be more groggy than usual Exam/Review of Systems Vital Signs Vitals Vital Signs Date Time Temp Pulse Resp B/P Pulse Ox O2 Delivery O2 Flow Rate FiO2 10/26/16 07:16 98.4 68 18 114/62 97 Intake and Output 10/25/16 10/25/16 10/26/16 15:00 23:00 07:00 Intake Total 2930 ml 340 ml Output Total 0 ml 1400 ml Balance 2930 ml -1060 ml Exam General: The patient is groggy and more altered than usual , not in acute distress. HEENT: Atraumatic, normocephalic. The pupils are equal and round . Neck: Supple with full range of motion. Chest: Normal expansion of the thorax during inspiration Lungs: Clear to auscultation bilaterally Heart: Normal S1-S2, Regular rhythm and rate. Abdomen: Soft , nontender, nondistended , bowel sounds are present. Extremities: Normal to inspection, no edema no cyanosis Neurologic: ,The patient is awake, alert, arousable Results Result Diagram: 10/25/16 0508 10/25/16 0508 Results 24 hrs Laboratory Tests Test 10/26/16 05:20 Ammonia 112 H Medications Medications Current Medications Ondansetron HCl (Zofran Inj) 4 mg Q6H PRN IV NAUSEA AND/OR VOMITING Last administered on 10/16/16 22:32; Admin Dose 4 MG; Start 10/05/16 at 16:30 Morphine Sulfate (morphine) 1 mg Q4H PRN IV SEVERE PAIN LEVEL 7-10 Last administered on 10/23/16 11:24; Admin Dose 1 MG; Start 10/05/16 at 16:30 Famotidine (Pepcid) 20 mg DAILY PO Last administered on 10/25/16 08:43; Admin Dose 20 MG; Start 10/06/16 at 09:00 Ferrous Sulfate (Ferrous Sulfate (Ec)) 325 mg DAILY PO Last administered on 08:43; Admin Dose 325 MG; Start 10/07/16 at 12:00 Ascorbic Acid (Vitamin C) 500 mg DAILY PO Last administered on 10/25/16 08:43 ; Admin Dose 500 MG; Start 10/08/16 at 09:00 Acetaminophen (Tylenol Tab) 650 mg Q6H PRN PO PAIN AND OR ELEVATED TEMP Last administered on 10/12/16 09:17; Admin Dose 650 MG; Start 10/08/16 at 11:14 Pantoprazole (Protonix Tab) 40 mg BID@06,18 PO Last administered on 10/26/16 06:36; Admin Dose 40 MG; Start 10/08/16 at 18:00 Acetaminophen/ Hydrocodone Bitart ([place] (5/325)) 1 tab Q4H PRN PO pain Last administered on 10/25/16 08:44; Admin Dose 1 TAB; Start 10/08/16 at 16:00 Nitroglycerin (Nitroglycerin (Sl Tab) 0.4 Mg) 1 tab Q5M PRN SL ANGINA Last administered on 10/10/16 21:24; Admin Dose 1 TAB; Start 10/10/16 at 21:30 Magnesium Oxide (Mag-Ox 400) 400 mg BID PO Last administered on 10/25/16 22:29 ; Admin Dose 400 MG; Start 10/11/16 at 12:30 Lorazepam (Ativan) 1 mg Q8H PRN PO ANXIETY Last administered on 10/26/16 00:57 ; Admin Dose 1 MG; Start 10/15/16 at 11:30 Quetiapine Fumarate (Seroquel) 25 mg BID PO Last administered on 10/25/16 22: 29; Admin Dose 25 MG; Start 10/20/16 at 13:30 Multivitamins Therapeutic (Theragran) 1 tab DAILY PO Last administered on 08:43; Admin Dose 1 TAB; Start 10/21/16 at 09:00 Folic Acid (Folic Acid) 1 mg DAILY PO Last administered on 10/25/16 08:43; Admin Dose 1 MG; Start 10/21/16 at 09:00 Thiamine HCl (Vitamin B1) 100 mg DAILY PO Last administered on 10/25/16 08:44 ; Admin Dose 100 MG; Start 10/21/16 at 09:00 Lactulose (Enulose) 20 gm TID PO Last administered on 10/25/16 22:29; Admin Dose 20 GM; Start 10/21/16 at 21:00 Lactulose (Lactulose Enema) 100 ml Q12 CO ; Start 10/26/16 at 10:30; Stop at 21:01 CARL PIERRE MD Oct 26, 2016 09:02
[2016-10-26] MEDS: MAGNESIUM OXIDE 400 MG TAB PO SCH ×2 (09:24→21:06)
[2016-10-26] MEDS: FAMOTIDINE 20 MG TAB PO SCH (09:24)
[2016-10-26] MEDS: FOLIC ACID 1 MG TAB PO SCH (09:24)
[2016-10-26] MEDS: THIAMINE 100 MG TAB PO SCH (09:25)
[2016-10-26] MEDS: MULTIVITAMINS THERAPEUTIC TAB PO SCH (09:25)
[2016-10-26] MEDS: FERROUS SULFATE (EC) 325 MG TAB PO SCH (09:25)
[2016-10-26] MEDS: ASCORBIC ACID 500 MG TAB PO SCH (09:25)
[2016-10-26] MEDS: LACTULOSE ENEMA 1,000 ML BTL PR SCH ×2 (10:34→23:29)
[2016-10-26 20:27] VITALS: BP 122/59; RESP 18
[2016-10-27] MEDS: LORAZEPAM 1 MG TAB PO PRN (01:49)
[2016-10-27] MEDS: PANTOPRAZOLE (EC) 40 MG TAB PO SCH ×2 (05:55→18:32)
[2016-10-27 07:18] VITALS: BP 124/65; RESP 16
[2016-10-27] MEDS: THIAMINE 100 MG TAB PO SCH (08:13)
[2016-10-27] MEDS: FERROUS SULFATE (EC) 325 MG TAB PO SCH (08:13)
[2016-10-27] MEDS: FAMOTIDINE 20 MG TAB PO SCH (08:13)
[2016-10-27] MEDS: MAGNESIUM OXIDE 400 MG TAB PO SCH ×2 (08:13→21:11)
[2016-10-27] MEDS: MULTIVITAMINS THERAPEUTIC TAB PO SCH (08:13)
[2016-10-27] MEDS: FOLIC ACID 1 MG TAB PO SCH (08:13)
[2016-10-27] MEDS: ASCORBIC ACID 500 MG TAB PO SCH (08:13)
[2016-10-27] MEDS: QUETIAPINE 25 MG TAB PO SCH ×2 (08:14→21:11)
[2016-10-27] MEDS: LACTULOSE ENEMA 1,000 ML BTL PR SCH ×2 (11:32→21:11)
--- NOTE | 2016-10-27 12:49 | PN ---
DATE: 10/27/2016 INTERNAL MEDICINE FOLLOWUP SUBJECTIVE: Chart reviewed. Events noted. Patient remains quite groggy today. The patient did, h owever, have a good bowel movement yesterday. PHYSICAL EXAMINATION: VITAL SIGNS: Blood pressure 124/65, pulse 77, respirations 16, temperature 98. Currently saturatin g 98% on room air. HEENT: Pupils are equal and react to light. Anicteric sclerae. NECK: Supple. No JVD noted, no cervical adenopathy noted, no carotid bruits heard. LUNGS: Fair breath sounds bilaterally. CARDIOVASCULAR: S1, S2 normal. ABDOMEN: Soft, nontender. No organomegaly or masses noted. EXTREMITIES: No clubbing, cyanosis, or edema noted. NEUROLOGICAL: Encephalopathic. IMPRESSION: 1. Status post rhabdomyolysis. 2. History of alcohol abuse. 3. Transaminitis. 4. Hepatic encephalopathy. 5. Thrombocytopenia. 6. Anemia. RECOMMENDATIONS: 1. Continue current treatment. 2. Continue to observe mental status. 3. Above discussed with staff. Dictated By: CATHERINE BLANC MD, MA/LOUIS Conf#: [id number] DID#: [id number]
[2016-10-27 20:22] VITALS: BP 121/73; RESP 18
[2016-10-28] MEDS: PANTOPRAZOLE (EC) 40 MG TAB PO SCH ×2 (05:19→17:49)
[2016-10-28 05:20] LABS: ADD SCAN DIFF NO
[2016-10-28 05:29] LABS: ABNORMAL IP MESSAGE 1; BASOPHILS % 0.5 % (0.0-2.0); EOSINOPHILS # 0.2 10^3/ul (0.0-0.5); EOSINOPHILS % 5.9 % (0.0-7.0); HEMATOCRIT 37.1 % (42.0-52.0); HEMOGLOBIN 11.7 g/dl (14.0-18.0); LYMPHOCYTES # 0.8 10^3/ul (0.8-2.9); LYMPHOCYTES % 21.3 % (15.0-51.0); MEAN CORPUSCULAR HEMOGLOBIN 29.7 pg (29.0-33.0); MEAN CORPUSCULAR HGB CONC 31.5 g/dl (32.0-37.0); MEAN CORPUSCULAR VOLUME 94.2 fl (82.0-101.0); MONOCYTE # 0.5 10^3/ul (0.3-0.9); MONOCYTES % 13.8 % (0.0-11.0); NEUTROPHIL # 2.3 10^3/ul (1.6-7.5); NEUTROPHILS % 58.2 % (39.0-77.0); RED BLOOD COUNT 3.94 10^6/ul (4.70-6.10); RED CELL DISTRIBUTION WIDTH 23.8 % (11.5-14.5); WHITE BLOOD COUNT 3.9 10^3/ul (4.8-10.8)
[2016-10-28 05:35] LABS: PLATELET COUNT 43 10^3/UL (140-415)
[2016-10-28 05:43] LABS: ALBUMIN 2.7 g/dl (3.3-4.9); POTASSIUM 3.5 mmol/L (3.5-5.1)
[2016-10-28 05:45] LABS: BILIRUBIN,INDIRECT 1.6 mg/dl (0-1.1); BILIRUBIN,TOTAL 1.6 mg/dl (0.2-1.3); CREATININE 0.49 mg/dl (0.61-1.24)
[2016-10-28 05:46] LABS: ALBUMIN/GLOBULIN RATIO 0.72; TOTAL PROTEIN 6.4 g/dl (6.1-8.1)
[2016-10-28 05:47] LABS: CALCIUM 8.5 mg/dl (8.4-10.2)
[2016-10-28 07:40] VITALS: BP 111/58; RESP 19
[2016-10-28] MEDS: MAGNESIUM OXIDE 400 MG TAB PO SCH ×2 (10:02→21:38)
[2016-10-28] MEDS: THIAMINE 100 MG TAB PO SCH (10:02)
[2016-10-28] MEDS: QUETIAPINE 25 MG TAB PO SCH ×2 (10:02→21:38)
[2016-10-28] MEDS: FOLIC ACID 1 MG TAB PO SCH (10:02)
[2016-10-28] MEDS: FAMOTIDINE 20 MG TAB PO SCH (10:02)
[2016-10-28] MEDS: MULTIVITAMINS THERAPEUTIC TAB PO SCH (10:02)
[2016-10-28] MEDS: ASCORBIC ACID 500 MG TAB PO SCH (10:02)
[2016-10-28] MEDS: FERROUS SULFATE (EC) 325 MG TAB PO SCH (10:02)
--- NOTE | 2016-10-28 15:35 | PN ---
DATE: 10/28/2016 SUBJECTIVE: Chart reviewed. The patient on room air saturating 97%. The patient is somewhat more awake and alert today. PHYSICAL EXAMINATION: VITAL SIGNS: Blood pressure 111/58, pulse 81, respirations 19, temperature 98.1. HEENT: Pupils are equal and reactive to light. NECK: Supple, no JVD noted, no cervical adenopathy, no carotid bruits heard. LUNGS: Fair breath sounds bilaterally. CARDIOVASCULAR: S1, S2 normal. ABDOMEN: Soft, nontender, normal. No masses noted. EXTREMITIES: No clubbing, cyanosis, or edema. NEUROLOGIC: More alert today. LABORATORY DATA: WBC 3.9, hemoglobin 11.7, hematocrit 37.1, platelets 43. Sodium 144, potassium 3. 5, chloride 110, CO2 23, BUN 7, creatinine 0.49, glucose 85 and ammonia 98. IMPRESSION: 1. Status post rhabdomyolysis. 2. History of alcohol abuse. 3. Hepatic encephalopathy, slightly improved today. 4. Thrombocytopenia. 5. Transaminitis. RECOMMENDATIONS: 1. Continue current treatment. 2. Continue to observe mental status. 3. Aspiration precautions. 4. Above discussed with the staff. Dictated By: CATHERINE BLANC MD, MA/LOUIS Conf#: [id number] DID#: [id number]
[2016-10-28 20:04] VITALS: BP 137/74; RESP 20
[2016-10-28] MEDS: LACTULOSE 30ML CUP PO SCH (21:38)
[2016-10-29] MEDS: ACETAMINOPHEN 325 MG TAB PO PRN (01:13)
[2016-10-29] MEDS: PANTOPRAZOLE (EC) 40 MG TAB PO SCH ×2 (06:22→17:28)
[2016-10-29 07:21] VITALS: BP 137/68; RESP 18
[2016-10-29] MEDS: ASCORBIC ACID 500 MG TAB PO SCH (07:53)
[2016-10-29] MEDS: FOLIC ACID 1 MG TAB PO SCH (07:53)
[2016-10-29] MEDS: THIAMINE 100 MG TAB PO SCH (07:53)
[2016-10-29] MEDS: LACTULOSE 30ML CUP PO SCH ×3 (07:53→21:51)
[2016-10-29] MEDS: FAMOTIDINE 20 MG TAB PO SCH (07:53)
[2016-10-29] MEDS: MAGNESIUM OXIDE 400 MG TAB PO SCH ×2 (07:53→21:51)
[2016-10-29] MEDS: QUETIAPINE 25 MG TAB PO SCH ×2 (07:53→21:51)
[2016-10-29] MEDS: FERROUS SULFATE (EC) 325 MG TAB PO SCH (07:53)
[2016-10-29] MEDS: MULTIVITAMINS THERAPEUTIC TAB PO SCH (07:54)
--- NOTE | 2016-10-29 10:57 | PN ---
Date/Time of Note Date/Time of Note DATE: 10/29/16 TIME: 10:56 Assessment/Plan VTE Prophylaxis VTE Prophylaxis Intervention: SCD's Lines/Catheters IV Catheter Type (from Nrsg): Saline Lock Urinary Cath still in place: No Assessment/Plan Assessment/Plan 1. Rhabdomyolysis. Resolved status post IV fluids 2. History and current alcohol dependency. Continue folic acid thiamine and multivitamin, Librium and Ativan. 3. Transaminitis secondary to #3. 4. Hepatic encephalopathy / altered mental status,, follow-up ammonia level, continue lactulose 5. Thrombocytopenia secondary to history of alcoholism. No evidence of acute bleeding at this time. 6. Anemia. Continue iron supplementation, follow up hemoglobin and hematocrit 7. For deep venous thrombosis prophylaxis, on sequential compression devices. 8. Gastrointestinal prophylaxis, on Protonix Subjective 24 Hr Interval Summary Free Text/Dictation pt on sitter, BP stable, afebrile Exam/Review of Systems Vital Signs Vitals Vital Signs Date Time Temp Pulse Resp B/P Pulse Ox O2 Delivery O2 Flow Rate FiO2 10/29/16 07:21 97.7 71 18 137/68 95 10/27/16 20:00 Room Air Intake and Output 10/28/16 10/28/16 10/29/16 15:00 23:00 07:00 Intake Total 200 ml 360 ml 300 ml Output Total 750 ml 800 ml Balance 200 ml -390 ml -500 ml Exam HEENT: Pupils are equal and reactive to light. NECK: Supple, no JVD noted, no cervical adenopathy, no carotid bruits heard. LUNGS: Fair breath sounds bilaterally. CARDIOVASCULAR: S1, S2 normal. ABDOMEN: Soft, nontender, normal. No masses noted. EXTREMITIES: No clubbing, cyanosis, or edema. NEUROLOGIC: More alert today. Results Result Diagram: 10/28/160 10/28/16429 Results 24 hrs Laboratory Tests Test 10/29/16 05:05 Ammonia 62 H Medications Medications Current Medications Ondansetron HCl (Zofran Inj) 4 mg Q6H PRN IV NAUSEA AND/OR VOMITING Last administered on 10/16/16 22:32; Admin Dose 4 MG; Start 10/05/16 at 16:30 Morphine Sulfate (morphine) 1 mg Q4H PRN IV SEVERE PAIN LEVEL 7-10 Last administered on 10/23/16 11:24; Admin Dose 1 MG; Start 10/05/16 at 16:30 Famotidine (Pepcid) 20 mg DAILY PO Last administered on 10/29/16 07:53; Admin Dose 20 MG; Start 10/06/16 at 09:00 Ferrous Sulfate (Ferrous Sulfate (Ec)) 325 mg DAILY PO Last administered on 07:53; Admin Dose 325 MG; Start 10/07/16 at 12:00 Ascorbic Acid (Vitamin C) 500 mg DAILY PO Last administered on 10/29/16 07:53 ; Admin Dose 500 MG; Start 10/08/16 at 09:00 Acetaminophen (Tylenol Tab) 650 mg Q6H PRN PO PAIN AND OR ELEVATED TEMP Last administered on 10/29/16 01:13; Admin Dose 650 MG; Start 10/08/16 at 11:14 Pantoprazole (Protonix Tab) 40 mg BID@ PO Last administered on 10/29/16 06:22; Admin Dose 40 MG; Start 10/08/16 at 18:00 Acetaminophen/ Hydrocodone Bitart ([place] (5/325)) 1 tab Q4H PRN PO pain Last administered on 10/25/16 08:44; Admin Dose 1 TAB; Start 10/08/16 at 16:00 Nitroglycerin (Nitroglycerin (Sl Tab) 0.4 Mg) 1 tab Q5M PRN SL ANGINA Last administered on 10/10/16 21:24; Admin Dose 1 TAB; Start 10/10/16 at 21:30 Magnesium Oxide (Mag-Ox 400) 400 mg BID PO Last administered on 10/29/16 07:53 ; Admin Dose 400 MG; Start 10/11/16 at 12:30 Lorazepam (Ativan) 1 mg Q8H PRN PO ANXIETY Last administered on 10/27/16 01:49 ; Admin Dose 1 MG; Start 10/15/16 at 11:30 Quetiapine Fumarate (Seroquel) 25 mg BID PO Last administered on 10/29/16 07: 53; Admin Dose 25 MG; Start 10/20/16 at 13:30 Multivitamins Therapeutic (Theragran) 1 tab DAILY PO Last administered on 07:54; Admin Dose 1 TAB; Start 10/21/16 at 09:00 Folic Acid (Folic Acid) 1 mg DAILY PO Last administered on 10/29/16 07:53; Admin Dose 1 MG; Start 10/21/16 at 09:00 Thiamine HCl (Vitamin B1) 100 mg DAILY PO Last administered on 10/29/16 07:53 ; Admin Dose 100 MG; Start 10/21/16 at 09:00 Lactulose (Enulose) 20 gm TID PO Last administered on 10/29/16 07:53; Admin Dose 20 GM; Start 10/28/16 at 21:00 JEOVANNY WATT MD Oct 29, 2016 10:57
[2016-10-29 20:44] VITALS: BP 140/80; RESP 20
[2016-10-30 05:34] LABS: ADD SCAN DIFF NO
[2016-10-30] MEDS: PANTOPRAZOLE (EC) 40 MG TAB PO SCH ×2 (05:54→17:59)
[2016-10-30 06:07] LABS: ABNORMAL IP MESSAGE 1; BASOPHILS % 0.3 % (0.0-2.0); EOSINOPHILS # 0.1 10^3/ul (0.0-0.5); EOSINOPHILS % 1.1 % (0.0-7.0); HEMATOCRIT 40.7 % (42.0-52.0); HEMOGLOBIN 13.2 g/dl (14.0-18.0); LYMPHOCYTES # 0.5 10^3/ul (0.8-2.9); LYMPHOCYTES % 7.6 % (15.0-51.0); MEAN CORPUSCULAR HEMOGLOBIN 30.2 pg (29.0-33.0); MEAN CORPUSCULAR HGB CONC 32.4 g/dl (32.0-37.0); MEAN CORPUSCULAR VOLUME 93.1 fl (82.0-101.0); MONOCYTE # 0.8 10^3/ul (0.3-0.9); MONOCYTES % 10.8 % (0.0-11.0); NEUTROPHIL # 5.6 10^3/ul (1.6-7.5); NEUTROPHILS % 79.9 % (39.0-77.0); RED BLOOD COUNT 4.37 10^6/ul (4.70-6.10); RED CELL DISTRIBUTION WIDTH 23.6 % (11.5-14.5)
[2016-10-30 06:18] LABS: PLATELET COUNT 45 10^3/UL (140-415)
[2016-10-30 06:36] LABS: ALBUMIN 3.1 g/dl (3.3-4.9)
[2016-10-30 06:37] LABS: POTASSIUM 3.7 mmol/L (3.5-5.1)
[2016-10-30 06:39] LABS: ALBUMIN/GLOBULIN RATIO 0.72; BILIRUBIN,INDIRECT 1.6 mg/dl (0-1.1); BILIRUBIN,TOTAL 1.6 mg/dl (0.2-1.3); CREATININE 0.54 mg/dl (0.61-1.24); TOTAL PROTEIN 7.4 g/dl (6.1-8.1)
[2016-10-30 06:40] LABS: CALCIUM 8.4 mg/dl (8.4-10.2)
[2016-10-30 08:29] VITALS: BP 128/65; RESP 26
[2016-10-30] MEDS: MULTIVITAMINS THERAPEUTIC TAB PO SCH (08:58)
[2016-10-30] MEDS: MAGNESIUM OXIDE 400 MG TAB PO SCH ×2 (08:58→21:40)
[2016-10-30] MEDS: FOLIC ACID 1 MG TAB PO SCH (08:58)
[2016-10-30] MEDS: FAMOTIDINE 20 MG TAB PO SCH (08:58)
[2016-10-30] MEDS: FERROUS SULFATE (EC) 325 MG TAB PO SCH (08:58)
[2016-10-30] MEDS: ASCORBIC ACID 500 MG TAB PO SCH (08:58)
[2016-10-30] MEDS: LACTULOSE 30ML CUP PO SCH ×3 (08:58→21:39)
[2016-10-30] MEDS: THIAMINE 100 MG TAB PO SCH (08:58)
[2016-10-30] MEDS: QUETIAPINE 25 MG TAB PO SCH ×2 (08:58→21:40)
[2016-10-30] MEDS ORDERED: ACETAMINOPHEN 650 MG SUPP PR PRN (11:00)
--- NOTE | 2016-10-30 11:23 | PN ---
Date/Time of Note Date/Time of Note DATE: 10/30/16 TIME: 11:20 Assessment/Plan VTE Prophylaxis VTE Prophylaxis Intervention: SCD's Lines/Catheters IV [facility] (from [facility] Saline Lock Urinary Cath still in place: No Assessment/Plan Assessment/Plan 1. altered mental status, possible hepatic encephalopathy 2. acute Rhabdomyolysis. Resolved status post IV fluids 2. History and current alcohol dependency. Continue folic acid thiamine and multivitamin, Librium and Ativan. 3. Transaminitis secondary to #3. 4. Hepatic encephalopathy / altered mental status,- NH3 rising to 100s 5. Thrombocytopenia secondary to history of alcoholism. No evidence of acute bleeding at this time. 6. Anemia. Continue iron supplementation, follow up hemoglobin and hematocrit 7. For deep venous thrombosis prophylaxis, on sequential compression devices. 8. Gastrointestinal prophylaxis, on Protonix Subjective 24 Hr Interval Summary Free Text/Dictation pt not waking up, not responding, BP stable , saturation ok, HR stable Exam/Review of Systems Vital Signs Vitals Vital Signs Date Time Temp Pulse Resp B/P Pulse Ox O2 Delivery O2 Flow Rate FiO2 10/30/16 08:33 102.3 10/30/16 08:29 99 26 128/65 95 10/27/16 20:00 Room Air Intake and Output 10/29/16 10/29/16 10/30/16 15:00 23:00 07:00 Intake Total 1000 ml 240 ml Balance 1000 ml 240 ml Exam HEENT: Pupils are equal and reactive to light. NECK: Supple, no JVD noted, no cervical adenopathy, no carotid bruits heard. LUNGS: Fair breath sounds bilaterally. CARDIOVASCULAR: S1, S2 normal. ABDOMEN: Soft, nontender, normal. No masses noted. EXTREMITIES: No clubbing, cyanosis, or edema. NEUROLOGIC: More alert today. Results Result Diagram: 10/30/16 0503 10/30/16 0503 Results 24 hrs Laboratory Tests Test 10/30/16 05:00 10/30/16 05:03 Ammonia 104 #H Alanine Aminotransferase (ALT/SGPT) 32 Albumin 3.1 L Albumin/Globulin Ratio 0.72 Alkaline Phosphatase 141 H Anion Gap 17 H Aspartate Amino Transf (AST/SGOT) 44 Basophils # 0.0 Basophils % 0.3 Blood Urea Nitrogen 9 Calcium Level 8.4 Carbon Dioxide Level 23 Chloride Level 109 Creatinine 0.54 L Direct Bilirubin 0.00 Eosinophils # 0.1 Eosinophils % 1.1 Globulin 4.30 H Glucose Level 101 Hematocrit 40.7 L Hemoglobin 13.2 L Indirect Bilirubin 1.6 H Lymphocytes # 0.5 L Lymphocytes % 7.6 L Mean Corpuscular Hemoglobin 30.2 Mean Corpuscular Hemoglobin Concent 32.4 Mean Corpuscular Volume 93.1 Mean Platelet Volume Monocytes # 0.8 Monocytes % 10.8 Neutrophils # 5.6 Neutrophils % 79.9 H Nucleated Red Blood Cells # 0.0 Nucleated Red Blood Cells % 0.0 Platelet Count 45 L Potassium Level 3.7 Red Blood Count 4.37 L Red Cell Distribution Width 23.6 H Sodium Level 145 H Total Bilirubin 1.6 H Total Protein 7.4 White Blood Count 7.0 # Medications Medications Current Medications Ondansetron HCl (Zofran Inj) 4 mg Q6H PRN IV NAUSEA AND/OR VOMITING Last administered on 10/16/16 22:32; Admin Dose 4 MG; Start 10/05/16 at 16:30 Morphine Sulfate (morphine) 1 mg Q4H PRN IV SEVERE PAIN LEVEL 7-10 Last administered on 10/23/16 11:24; Admin Dose 1 MG; Start 10/05/16 at 16:30 Famotidine (Pepcid) 20 mg DAILY PO Last administered on 10/30/16 08:58; Admin Dose 20 MG; Start 10/06/16 at 09:00 Ferrous Sulfate (Ferrous Sulfate (Ec)) 325 mg DAILY PO Last administered on 08:58; Admin Dose 325 MG; Start 10/07/16 at 12:00 Ascorbic Acid (Vitamin C) 500 mg DAILY PO Last administered on 10/30/16 08:58 ; Admin Dose 500 MG; Start 10/08/16 at 09:00 Acetaminophen (Tylenol Tab) 650 mg Q6H PRN PO PAIN AND OR ELEVATED TEMP Last administered on 10/29/16 01:13; Admin Dose 650 MG; Start 10/08/16 at 11:14 Pantoprazole (Protonix Tab) 40 mg BID@06,18 PO Last administered on 10/30/16 05:54; Admin Dose 40 MG; Start 10/08/16 at 18:00 Acetaminophen/ Hydrocodone Bitart ([place] (5/325)) 1 tab Q4H PRN PO pain Last administered on 10/25/16 08:44; Admin Dose 1 TAB; Start 10/08/16 at 16:00 Nitroglycerin (Nitroglycerin (Sl Tab) 0.4 Mg) 1 tab Q5M PRN SL ANGINA Last administered on 10/10/16 21:24; Admin Dose 1 TAB; Start 10/10/16 at 21:30 Magnesium Oxide (Mag-Ox 400) 400 mg BID PO Last administered on 10/30/16 08:58 ; Admin Dose 400 MG; Start 10/11/16 at 12:30 Lorazepam (Ativan) 1 mg Q8H PRN PO ANXIETY Last administered on 10/27/16 01:49 ; Admin Dose 1 MG; Start 10/15/16 at 11:30 Quetiapine Fumarate (Seroquel) 25 mg BID PO Last administered on 10/30/16 08: 58; Admin Dose 25 MG; Start 10/20/16 at 13:30 Multivitamins Therapeutic (Theragran) 1 tab DAILY PO Last administered on 08:58; Admin Dose 1 TAB; Start 10/21/16 at 09:00 Folic Acid (Folic Acid) 1 mg DAILY PO Last administered on 10/30/16 08:58; Admin Dose 1 MG; Start 10/21/16 at 09:00 Thiamine HCl (Vitamin B1) 100 mg DAILY PO Last administered on 10/30/16 08:58 ; Admin Dose 100 MG; Start 10/21/16 at 09:00 Lactulose (Enulose) 20 gm TID PO Last administered on 10/30/16 08:58; Admin Dose 20 GM; Start 10/28/16 at 21:00 Acetaminophen (Tylenol Supp) 650 mg Q4H PRN [place] PAIN OR TEMP ABOVE 38C; Start at 11:00 JEOVANNY WATT MD Oct 30, 2016 11:23
[2016-10-30 12:07] LABS: AADO2 Arterial 15.5 mmHg (7.0-24.0); Allen Test ACCEPTAB; Arterial Base Excess -1.1 mmol/L (-3.0-3); Arterial COHb 0.5 % (0.0-3.0); Arterial Fraction of Oxyhgb 97.8 % (93.0-99.0); Arterial HCO3 22.5 mmol/L (22.0-26.0); Arterial MetHb 0.4 % (0.0-1.5); Arterial Total Hemglobin 14.2 g/dl (12.0-18.0); MODE NASAL CANNULA
--- NOTE | 2016-10-30 12:31 | RADRPT ---
PROCEDURE: CT head without Contrast CLINICAL INDICATION: Altered mental status, not waking up TECHNIQUE: Transaxial images were made through the head on a multi-slice scanner without intraveno us contrast. Coronal and sagittal images were subsequently reformatted. One or more of the following dose reduction techniques were used: - Automated exposure control. - Adjustment of the mA and/or kV according to patient size. - Use of iterative reconstruction technique. Radiation dose: CTDIvol = 43.95 mGy; DLP = 630.20 mGy-cm. COMPARISON: 10/05/2016 FINDINGS: The calvarium appears intact. The mastoid air cells and paranasal sinuses are well-aerated.. The ventricles remain mildly prominent but proportionate to the prominent fissures and sulci compati ble with moderate diffuse cortical atrophy. There is no midline shift. Very minimal hypodensity is seen in the deep periventricular white matter tracts compatible with chr onic microvascular disease, unchanged. No intracranial bleed, mass, or extra-axial fluid collection is identified. There is good duggan-white matter differentiation. IMPRESSION: 1. There are no findings to suggest an acute intracranial abnormality. 2. Persistent moderate diffuse cortical volume loss with slight chronic microvascular changes seen in the deep white matter tracts, unchanged since 10/05/2016. Physician Hannha Date Time Electronically viewed and signed by Physician Hannah on 10/30/2016 12:30 /
--- NOTE | 2016-10-30 12:39 | RADRPT ---
PROCEDURE: XR Chest. CLINICAL INDICATION: Check nasogastric tube position. TECHNIQUE: Single frontal view. COMPARISON: 10/05/2016. FINDINGS: The nasogastric tube tip is in the stomach. There is mild pulmonary edema, unchanged. The lungs ar e otherwise clear. The heart size is normal. There is no pleural effusion. There is no pneumothorax. IMPRESSION: 1. Nasogastric tube tip in the stomach. 2. Mild pulmonary edema, unchanged. RPTAT: QQ .Bear Singh MD, MD Date Time Electronically viewed and signed by .Bear Singh MD, MD on 10/30/2016 12:38 .R/
[2016-10-30 20:29] VITALS: BP 134/77; RESP 20
[2016-10-31 06:05] LABS: ADD SCAN DIFF NO
[2016-10-31] MEDS: PANTOPRAZOLE (EC) 40 MG TAB PO SCH ×2 (06:07→18:09)
[2016-10-31 06:10] LABS: ABNORMAL IP MESSAGE 1; HEMATOCRIT 38.1 % (42.0-52.0); HEMOGLOBIN 12.4 g/dl (14.0-18.0); MEAN CORPUSCULAR HEMOGLOBIN 30.4 pg (29.0-33.0); MEAN CORPUSCULAR HGB CONC 32.5 g/dl (32.0-37.0); MEAN CORPUSCULAR VOLUME 93.4 fl (82.0-101.0); RED BLOOD COUNT 4.08 10^6/ul (4.70-6.10); RED CELL DISTRIBUTION WIDTH 22.6 % (11.5-14.5); WHITE BLOOD COUNT 4.7 10^3/ul (4.8-10.8)
[2016-10-31 06:18] LABS: PLATELET COUNT 43 10^3/UL (140-415)
[2016-10-31 06:24] LABS: ALBUMIN 2.8 g/dl (3.3-4.9)
[2016-10-31 06:25] LABS: POTASSIUM 3.6 mmol/L (3.5-5.1)
[2016-10-31 06:27] LABS: ALBUMIN/GLOBULIN RATIO 0.7; BILIRUBIN,INDIRECT 1.5 mg/dl (0-1.1); BILIRUBIN,TOTAL 1.5 mg/dl (0.2-1.3); CREATININE 0.5 mg/dl (0.61-1.24); TOTAL PROTEIN 6.8 g/dl (6.1-8.1)
[2016-10-31 06:28] LABS: CALCIUM 8.3 mg/dl (8.4-10.2)
[2016-10-31 07:59] VITALS: BP 126/65; RESP 16
[2016-10-31] MEDS: LACTULOSE 30ML CUP PO SCH ×2 (08:14→13:47)
[2016-10-31] MEDS: FERROUS SULFATE (EC) 325 MG TAB PO SCH (08:15)
[2016-10-31] MEDS: ASCORBIC ACID 500 MG TAB PO SCH (08:15)
[2016-10-31] MEDS: THIAMINE 100 MG TAB PO SCH (08:15)
[2016-10-31] MEDS: FAMOTIDINE 20 MG TAB PO SCH (08:15)
[2016-10-31] MEDS: MULTIVITAMINS THERAPEUTIC TAB PO SCH (08:15)
[2016-10-31] MEDS: MAGNESIUM OXIDE 400 MG TAB PO SCH (08:15)
[2016-10-31] MEDS: QUETIAPINE 25 MG TAB PO SCH (08:15)
[2016-10-31] MEDS: FOLIC ACID 1 MG TAB PO SCH (08:15)
[2016-10-31 10:00] LABS: EOSINOPHILS # 0.5 10^3/ul (0.0-0.5); MONOCYTE # 0.5 10^3/ul (0.3-0.9); MYELOCYTES # 0.1; NEUTROPHIL # 2.2 10^3/ul (1.6-7.5)
[2016-10-31 10:01] LABS: ANISOCYTOSIS 1+; HYPOCHROMASIA 2+; PLATELET ESTIMATE PLT APPEAR DECREASED
--- NOTE | 2016-10-31 15:19 | PN ---
Date/Time of Note Date/Time of Note DATE: 10/31/16 TIME: 15:17 Assessment/Plan VTE Prophylaxis VTE Prophylaxis Intervention: SCD's Lines/Catheters [facility] Type [facility]from [facility] Saline Lock Urinary Cath still in place: No Assessment/Plan Assessment/Plan 1. altered mental status, possible hepatic encephalopathy 2. acute Rhabdomyolysis. Resolved status post IV fluids 2. History and current alcohol dependency. Continue folic acid thiamine and multivitamin, Librium and Ativan. 3. Transaminitis secondary to #3. 4. Hepatic encephalopathy / altered mental status,- NH3 rising to 100s 5. Thrombocytopenia secondary to history of alcoholism. No evidence of acute bleeding at this time. 6. Anemia. Continue iron supplementation, follow up hemoglobin and hematocrit 7. For deep venous thrombosis prophylaxis, on sequential compression devices. 8. Gastrointestinal prophylaxis, on Protonix CT head negative pt awake today but confused Increase seroquel to 25 mg po BID will need placement Subjective 24 Hr Interval Summary Free Text/Dictation still confused, BP stable, Now more alert today Exam/Review of Systems Vital Signs Vitals Vital Signs Date Time Temp Pulse Resp B/P Pulse Ox O2 Delivery O2 Flow Rate FiO2 10/31/16 07:59 98.7 82 16 126/65 100 10/27/16 20:00 Room Air Intake and Output 10/30/16 10/30/16 10/31/16 15:00 23:00 07:00 Intake Total 840 ml 120 ml Balance 840 ml 120 ml Exam HEENT: Pupils are equal and reactive to light. NECK: Supple, no JVD noted, no cervical adenopathy, no carotid bruits heard. LUNGS: Fair breath sounds bilaterally. CARDIOVASCULAR: S1, S2 normal. ABDOMEN: Soft, nontender, normal. No masses noted. EXTREMITIES: No clubbing, cyanosis, or edema. NEUROLOGIC: More alert today. Results Result Diagram: 10/31/16 0544 10/31/16 0445 Results 24 hrs Laboratory Tests Test 10/31/16 04:45 10/31/16 05:44 10/31/16 05:45 Sodium Level 144 Potassium Level 3.6 Chloride Level 110 Carbon Dioxide Level 25 Anion Gap 13 Blood Urea Nitrogen 9 Creatinine 0.50 L Glucose Level 86 Calcium Level 8.3 L Total Bilirubin 1.5 H Direct Bilirubin 0.00 Indirect Bilirubin 1.5 H Aspartate Amino Transf (AST/SGOT) 50 H Alanine Aminotransferase (ALT/SGPT) 30 Alkaline Phosphatase 116 Total Protein 6.8 Albumin 2.8 L Globulin 4.00 H Albumin/Globulin Ratio 0.70 White Blood Count 4.7 #L Red Blood Count 4.08 L Hemoglobin 12.4 L Hematocrit 38.1 L Mean Corpuscular Volume 93.4 Mean Corpuscular Hemoglobin 30.4 Mean Corpuscular Hemoglobin Concent 32.5 Red Cell Distribution Width 22.6 H Platelet Count 43 L Mean Platelet Volume Neutrophils % 46.0 Band Neutrophils % 7.0 H Lymphocytes % 21.0 Monocytes % 11.0 Eosinophils % 10.0 H Basophils % Metamyelocytes % 1.0 H Myelocytes % 3.0 H Promyelocytes % 1.0 H Nucleated Red Blood Cells % Neutrophils # 2.2 Lymphocytes # 1.0 Monocytes # 0.5 Eosinophils # 0.5 Basophils # Metamyelocytes # 0.0 Myelocytes # 0.1 Promyelocytes # 0.0 Nucleated Red Blood Cells # Differential Comment MANUAL DIFF Platelet Estimate PLT APPEAR DECREASED Hypochromasia 2+ Anisocytosis 1+ Macrocytosis 1+ Ammonia 51 #H Medications Medications Current Medications Ondansetron HCl (Zofran Inj) 4 mg Q6H PRN IV NAUSEA AND/OR VOMITING Last administered on 10/16/16 22:32; Admin Dose 4 MG; Start 10/05/16 at 16:30 Morphine Sulfate (morphine) 1 mg Q4H PRN IV SEVERE PAIN LEVEL 7-10 Last administered on 10/23/16 11:24; Admin Dose 1 MG; Start 10/05/16 at 16:30 Famotidine (Pepcid) 20 mg DAILY PO Last administered on 10/31/16 08:15; Admin Dose 20 MG; Start 10/06/16 at 09:00 Ferrous Sulfate (Ferrous Sulfate (Ec)) 325 mg DAILY PO Last administered on 08:15; Admin Dose 325 MG; Start 10/07/16 at 12:00 Ascorbic Acid (Vitamin C) 500 mg DAILY PO Last administered on 10/31/16 08:15 ; Admin Dose 500 MG; Start 10/08/16 at 09:00 Acetaminophen (Tylenol Tab) 650 mg Q6H PRN PO PAIN AND OR ELEVATED TEMP Last administered on 10/29/16 01:13; Admin Dose 650 MG; Start 10/08/16 at 11:14 Pantoprazole (Protonix Tab) 40 mg BID@,18 PO Last administered on 10/31/16 06:07; Admin Dose 40 MG; Start 10/08/16 at 18:00 Acetaminophen/ Hydrocodone Bitart ([place] (5/325)) 1 tab Q4H PRN PO pain Last administered on 10/25/16 08:44; Admin Dose 1 TAB; Start 10/08/16 at 16:00 Nitroglycerin (Nitroglycerin (Sl Tab) 0.4 Mg) 1 tab Q5M PRN SL ANGINA Last administered on 10/10/16 21:24; Admin Dose 1 TAB; Start 10/10/16 at 21:30 Magnesium Oxide (Mag-Ox 400) 400 mg BID PO Last administered on 10/31/16 08:15 ; Admin Dose 400 MG; Start 10/11/16 at 12:30 Lorazepam (Ativan) 1 mg Q8H PRN PO ANXIETY Last administered on 10/27/16 01:49 ; Admin Dose 1 MG; Start 10/15/16 at 11:30; Status Future Hold Quetiapine Fumarate (Seroquel) 25 mg BID PO Last administered on 10/30/16 08: 58; Admin Dose 25 MG; Start 10/20/16 at 13:30; Status Future Hold Multivitamins Therapeutic (Theragran) 1 tab DAILY PO Last administered on 08:15; Admin Dose 1 TAB; Start 10/21/16 at 09:00 Folic Acid (Folic Acid) 1 mg DAILY PO Last administered on 10/31/16 08:15; Admin Dose 1 MG; Start 10/21/16 at 09:00 Thiamine HCl (Vitamin B1) 100 mg DAILY PO Last administered on 10/31/16 08:15 ; Admin Dose 100 MG; Start 10/21/16 at 09:00 Lactulose (Enulose) 20 gm TID PO Last administered on 10/31/16 13:47; Admin Dose 20 GM; Start 10/28/16 at 21:00 Acetaminophen (Tylenol Supp) 650 mg Q4H PRN [place] PAIN OR TEMP ABOVE 38C; Start at 11:00 Quetiapine Fumarate (Seroquel) 12.5 mg BID PO Last administered on 10/31/16 08 :15; Admin Dose 12.5 MG; Start 10/30/16 at 21:00 JEOVANNY WATT MD Oct 31, 2016 15:19
--- NOTE | 2016-10-31 16:24 | PDOCDIS ---
Discharge Instructions CONDITION Patient Condition: Good HOME CARE INSTRUCTIONS: Diet Instructions: RegularSpecial Diet: regular diet ACTIVITY: Activity Restrictions: Slowly Increase Activity Rest between Activity Avoid heavy lifting Avoid Heavy Housework FOLLOW UP/APPOINTMENTS Appointments follow up with physician at [facility] JEOVANNY WATT MD Oct 31, 2016 16:24
[2016-10-31] MEDS ORDERED: QUETIAPINE 25 MG TAB PO SCH (21:00)
--- NOTE | 2016-11-01 01:43 | DS ---
DATE OF ADMISSION: 10/07/2016 DATE OF DISCHARGE: 10/31/2016 FINAL DISCHARGE DIAGNOSES: 1. Altered mental status secondary to acute hepatic encephalopathy. 2. Acute rhabdomyolysis. 3. Acute hepatic encephalopathy secondary to liver cirrhosis. 4. History of liver cirrhosis secondary to alcohol abuse. 5. Thrombocytopenia secondary to liver cirrhosis. 6. History of alcohol abuse. CONSULTATIONS DURING THIS HOSPITALIZATION: Patient was seen by social professionals for his history of alc ohol abuse. HOSPITAL COURSE: This is a 51-year-old male with a past medical history of alcohol abuse, history o f previous alcoholic gastritis, who was brought in because of altered mental status. He is noted to have acute hepatic encephalopathy. He also had acute rhabdomyolysis which was resolved with IV flu id hydration. The patient also had elevated liver enzymes and thrombocytopenia which was thought se condary to his alcohol use and the liver cirrhosis. The patient continues to remain altered, requir ing restraint and had been on multiple IV fluids including the D5 half NS. Along with that, the ban adolfo bag was also given daily. The patient required IV Ativan multiple times and also required restr aint along with a sitter. He continues to remain altered, for which he was started on Seroquel for his agitation. The patient had a 1-day, very severe altered mental status, for which he had emergen t workup done, including a CT head, ABG, and chemistry. Everything was unremarkable. His ammonia l evel was improved to 65 while being in the hospital and he was getting lactulose 3 times a day. The patient continues to remain alert, awake but he had some agitation secondary to his possible early alcohol withdrawal, so he was treated with IV Ativan for that. Upon further assessment of the jyothi baltazar, he was cleared for discharge to a custodial facility and the patient got transferred to the [facility]. DISPOSITION: To custodial facility. DISCHARGE CONDITION: Stable and improved compared to admission. DISCHARGE ACTIVITIES: As tolerated, slowly resume to the normal baseline activity. DISCHARGE DIET: Regular diet. DISCHARGE MEDICATIONS: As per medical reconciliation. DISCHARGE FOLLOWUP AND INSTRUCTIONS: The patient is to follow up with the physician at the custodial facility. Dictated By: JEOVANNY WATT MD, KP/[facility]OU[facility] Conf#: [id number] DID#: [id number]
== END 2016-10-31 18:55 | DRG 433 ==
LOC: E/R 10:25 → TEL 15:03 → OBSVTOIN 10-07 16:24 → MS2 10-08 02:29
PROVIDERS: ADMIT Family Medicine; ATTEND Family Medicine
DX: K70.40 Alcoholic hepatic failure without coma (principal); M62.82 Rhabdomyolysis; K70.30 Alcoholic cirrhosis of liver without ascites; D69.59 Other secondary thrombocytopenia; F10.288 Alcohol dependence with other alcohol-induced disorder; F10.239 Alcohol dependence with withdrawal, unspecified; Y90.2 Blood alcohol level of 40-59 mg/100 ml; D64.9 Anemia, unspecified; E80.6 Other disorders of bilirubin metabolism; R74.0 Nonspecific elevation of levels of transaminase and lactic acid dehydrogenase [LDH]; Z91.14 Patient's other noncompliance with medication regimen; Z91.410 Personal history of adult physical and sexual abuse; Z59.0 Homelessness
CPT/HCPCS: 36600; 70450; 71010; 80048; 80053; 80306; 82140; 82550; 82553; 82803; 83735; 83880; 84100; 84484; 85025; 85610; 85730; 87040; 87081; 93005; 94664; 96374; 96375; 97116; 97166; 97530; 99217; G0378; C9113; J2060; J2270; J2405; J3411; J3475; J7030; J7070